=== PATIENT | female | born 1945 | race Caucasian/White ===

== ENCOUNTER 2024-03-16 09:42 | Inpatient (IN) | payer MEDICARE, OTHER, SELFPAY ==
[2024-03-16] VITALS (64 sets, daily range): BP systolic 85–174; BP diastolic 26–110; PULSE 65–115; RESP 15–36; TEMP 36.4–37.7; O2SAT 98–100; BMI 36.6
--- NOTE | ~2024-03-16 | XR_ITS ---
EXAMINATION: XR chest ET placement DATE: 03/16/2024 10:16 INDICATION: Intubation. TECHNIQUE: A single frontal view of the chest was obtained. COMPARISON: None. FINDINGS: There are airspace opacities in left mid and lower lung zones. There is blunting of left la teral costophrenic angle. No pneumothorax. The heart size is normal. There is a large hiatal hernia. The endotracheal tube tip is in the right mainstem bronchus. IMPRESSION: 1. Endotracheal tube tip in the right mainstem bronchus. I called this result to Dr. Painting. 2. Airspace opacities in left mid and lower lung zones, consistent with atelectasis versus pneumonia. 3. Blunting of left lateral costophrenic angle, which may be a prominent fat pad or a small pleural e ffusion. 4. Large hiatal hernia. Reviewed, dictated and finalized at location A. IMPRESSION: 1. Endotracheal tube tip in the right mainstem bronchus. I called this result t o Dr. Painting. 2. Airspace opacities in left mid and lower lung zones, consistent with atelect asis versus pneumonia. 3. Blunting of left lateral costophrenic angle, which may be a prominent fat pa d or a small pleural effusion. 4. Large hiatal hernia.
--- NOTE | ~2024-03-16 | MR_ITS ---
EXAMINATION: MR brain/brain stem wo/w con DATE: 03/17/2024 13:33 INDICATION: Seizure. TECHNIQUE: Magnetic resonance imaging (MRI) of the brain and brainstem was performed without and with 20 mL MultiHance intravenous contrast. COMPARISON: Head CT 03/16/2024 FINDINGS: There is increased T2-weighted and T2-weighted signal intensity involving the anteromedial left temporal lobe with tissue swelling. There are scattered areas of nonspecific increased T2-weight ed signal intensity in the cerebral white matter, which is within normal limits for the patient's age . There is no acute ischemic infarct or intracranial hemorrhage. 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 The ventricles are normal in size. There are likely maloney ges of ocular lens replacement surgeries. The paranasal sinuses are clear. There are small bilateral mastoid effusions. IMPRESSION: 1. Swelling and signal abnormality involving anteromedial left temporal lobe suspicious for HSV encep halitis. 2. 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 Reviewed, dictated and finalized at location A. IMPRESSION: 1. Swelling and signal abnormality involving anteromedial left temporal lobe bello spicious for HSV encephalitis. 2. 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
--- NOTE | ~2024-03-16 | XR_ITS ---
EXAMINATION: XR lumbar puncture diagnostic DATE: 03/18/2024 12:31 INDICATION: HSV encephalitis. Seizure. TECHNIQUE: The procedure including the risks, benefits, and alternatives was discussed with the patie nt. Risks discussed included spinal headache, cerebrospinal fluid leak, bleeding, and infection. The patient understood the risks and agreed to proceed. A timeout was performed to verify the patient' s name, date of , and procedure to be performed. The skin overlying the L2-L3 level was prepped and draped in usual sterile fashion. Subcutaneous 1% lidocaine was used for local anesthesia. A 20 gauge spinal needle was advanced under fluoroscopic guidance. The needle was removed and the entry s ite was cleaned and dressed. There were no immediate complications. Fluoroscopy exposure time was 0. 1 minutes. The total number of images was 1. FINDINGS: Real-time fluoroscopy demonstrates the needle at the L2-L3 level. The opening pressure was 16 cm water (Normal range is variably defined as 6-20 cm water and up to 25 cm water in obese patient s. Pressure >25 cm water is one of the modified Dandy criteria for idiopathic intracranial hypertensi on). 14 mL of clear, colorless fluid was collected in 4 tubes. IMPRESSION: 1. Successful fluoro-guided lumbar puncture. Reviewed, dictated and finalized at location A.
--- NOTE | ~2024-03-16 | CT_ITS ---
EXAMINATION: CT brain wo con DATE: 03/16/2024 10:23 INDICATION: Seizure-like activity. TECHNIQUE: Computed tomography (CT) of the head was performed without intravenous contrast. The mA wa s adjusted according to patient size. Iterative reconstruction technique was employed. The dose-lengt h product was 605.33 mGy-cm. COMPARISON: None FINDINGS: There are scattered areas of low attenuation in the cerebral white matter, which is within normal limits for the patient's age. There is no intracranial hemorrhage, acute infarction, or abnorm al intracranial mass lesion. The ventricles are normal in size. There are likely changes of ocular le ns replacement surgeries. There is mild mucosal thickening in the ethmoid sinuses. There is a small l eft mastoid effusion. IMPRESSION: 1. Normal aging brain. Reviewed, dictated and finalized at location A. IMPRESSION: 1. Normal aging brain.
--- NOTE | ~2024-03-16 | XR_ITS ---
EXAMINATION: XR chest 1V portable DATE: 03/18/2024 09:48 INDICATION: Shortness of breath. TECHNIQUE: A single frontal view of the chest was obtained. COMPARISON: Chest single view 03/16/2024, chest CT 03/16/2024 FINDINGS: There is a large hiatal hernia. There is mild atelectasis in left lower lung zone. No pleur al effusion or pneumothorax. The heart size is normal. IMPRESSION: 1. Large hiatal hernia. 2. Mild atelectasis in left lower lung zone. Reviewed, dictated and finalized at location A.
--- NOTE | ~2024-03-16 | XR_ITS ---
EXAMINATION: XR chest 1V portable DATE: 03/19/2024 09:58 INDICATION: Weakness. TECHNIQUE: A single frontal view of the chest was obtained. COMPARISON: Chest single view 03/18/2024, chest CT 03/16/2024 FINDINGS: There is mild atelectasis in left lower lung zone. No pleural effusion or pneumothorax. The re is a large hiatal hernia. The heart size is normal. IMPRESSION: 1. Mild atelectasis in left lower lung zone. 2. Large hiatal hernia. Reviewed, dictated and finalized at location B.
--- NOTE | ~2024-03-16 | CT_ITS ---
CTA brain carotid Ordering provider: Gabriela Painting MD History: . c/f cva . Comparison: None. Technique: CT angiogram head and neck was performed following timed intravenous injection of contrast . Thin slice axial images and reformatted coronal images were obtained. Three dimensional reformatted images of the brain were also obtained using a [employer] workstation. Radiation reduction technique uti lized. The dose-length product was 2641.75 mGy-cm. 200 mL Omnipaque 350 was given IV. FINDINGS: HEAD: --ANTERIOR AND MIDDLE CEREBRAL ARTERIES AND BRANCHES: Normal caliber and contour. Absent left A1 segm ent. --INTERNAL CAROTID ARTERIES: Mild atheromatous disease but no significant stenosis. No occlusion. --BASILAR ARTERY AND BRANCHES: Normal caliber and contour. No atheromatous disease. --POSTERIOR CEREBRAL ARTERIES: Normal caliber and contour. The distal branches are not very clear. --POSTERIOR COMMUNICATING ARTERIES: Both are visualized and continues as posterior cerebral arteries. --ANEURYSM: Prominent area in the anterior part of the cavernous sinus which measures 1 x 0.6 cm. Pos sibility of aneurysm in the area cannot be excluded. Further evaluation advised. --BRAIN: Please refer to report of CT head performed the same day. --BONES AND SUPERFICIAL SOFT TISSUES: Please refer to report of CT head performed the same day. --PARANASAL SINUSES AND MASTOIDS: Please refer to report of CT head done the same day. NECK: --RIGHT CERVICAL CAROTID SYSTEM: Mild atheromatous disease of the carotid bulb and proximal internal carotid artery without significant stenosis. Percent stenosis per NASCET criteria is 0%. No carotid dissection. Otherwise, no significant atheromatous disease or stenosis of the cervical carotid system . --LEFT CERVICAL CAROTID SYSTEM: Mild atheromatous disease of the carotid bulb and proximal internal c arotid artery without significant stenosis. Percent stenosis per NASCET criteria is 0%. No carotid d issection. Otherwise, no significant atheromatous disease or stenosis of the cervical carotid system. --VERTEBRAL ARTERIES: Normal caliber and contour. --VISUALIZED AORTIC ARCH AND BRANCHING VESSELS: Mild atheromatous disease but no significant stenosis . --SOFT TISSUES: Normal. --CERVICAL SPINE: Age appropriate degenerative changes. Anterolisthesis seen at the level of C4-C5. IMPRESSION: 1. CTA head and neck. Percent stenosis per NASCET criteria is 0%. 2. Prominent area in the anterior left cavernous sinus which may be an aneurysm. Further evaluation advised. 3. Absent left A1 segment. 4. Posterior communicating arteries continue otherwise posterior cerebral arteries. 5. No definite evidence of occlusion or significant stenosis in the intracerebral arteries although the distal branches of the posterior cerebral arteries are not very clear. Reviewed, dictated and finalized at location A. IMPRESSION: 1. CTA head and neck. Percent stenosis per NASCET criteria is 0%. 2. Prominent area in the anterior left cavernous sinus which may be an aneurys m. Further evaluation advised. 3. Absent left A1 segment. 4. Posterior communicating arteries continue otherwise posterior cerebral jairo milan. 5. No definite evidence of occlusion or significant stenosis in the intracereb ral arteries although the distal branches of the posterior cerebral arteries ar e not very clear.
--- NOTE | ~2024-03-16 | CT_ITS ---
CTA chest PE protocol Ordering provider: Gabriela Painting MD History: 78 years Female with . elev dimer . Comparison: None. Technique: CT angiogram chest was performed following timed intravenous injection of contrast. Thin s lice axial images and reformatted coronal images were obtained. Three dimensional reformatted images of the chest were also obtained using a [employer] workstation. . Automated exposure control and iterati ve reconstruction technique were employed. The dose-length product was 2641.75 mGy-cm. 200 mL Omnipaq ue 350 was given IV. Findings: PULMONARY ARTERIES: No pulmonary embolus. VISUALIZED THORACIC INLET: Hypodensities in both lobes of the thyroid. Ultrasound evaluation advised. Endotracheal tube is seen with the tip in the trachea. Nasogastric tube is seen looping in the stoma ch. MEDIASTINUM: Aorta/coronary arteries: Mild atheromatous disease. Heart/other: The heart is slightly enlarged. Prominent main pulmonary artery measuring 3.1 cm which is suggestive of pulmonary hypertension. Lymph nodes: No mediastinal or hilar adenopathy. LUNGS: Left lower lobe pneumonia is noted. No pulmonary nodules or masses. No effusions. No pneumothorax. VISUALIZED UPPER ABDOMEN: Herniation of the stomach into the chest is noted. Right renal cyst. Promin ent left adrenal gland. Otherwise, the visualized upper abdomen is normal. MUSCULOSKELETAL: Soft tissues: The superficial soft tissues are normal. Bones: Age appropriate degenerative changes of the spine. Dextroscoliosis. IMPRESSION: 1. Left lower lobe pneumonia. 2. No pulmonary embolism. 3. Herniation of the stomach into the chest. 4. Prominent pulmonary artery which may indicate pulmonary hypertension. Reviewed, dictated and finalized at location A.
--- NOTE | 2024-03-16 09:43 | ECG_ITS ---
Test Date: 2024-03-16 10:03:49 Measurements Intervals [place] Rate: 100 P: 71 IA: 181 QRS: 2 QRSD: 82 T: 12 QT: 333 QTc: 429 Interpretive Statements SINUS TACHYCARDIA POSSIBLE LEFT ATRIAL ENLARGEMENT [-0.1mV P-WAVE IN V1/V2] No previous ECG available for comparison Electronically Signed On 03-16-2024 15:36:39 CDT by Isauro Levine M.D.
[2024-03-16] MEDS: NALOXONE HCL 0.4 MG/ML VIAL (09:48)
[2024-03-16] MEDS: PROPOFOL IV EMULSION 200 MG/20 ML VIAL 100 MG IV PUSH ×2 (09:55→10:07)
[2024-03-16] MEDS: ROCURONIUM BROMIDE 50 MG/5 ML VIAL 70 MG IV PUSH ×2 (09:57→10:08)
--- NOTE | 2024-03-16 10:08 | ED_ITS ---
HPI - Seizure General Chief Complaint: Seizure Stated Complaint: code stroke Time Seen by Provider: 03/16/24 10:07 Source: family ( and neighbor) and EMS Mode of arrival: EMS Limitations: altered mental status and clinical condition History of Present Illness HPI Narrative: Patient presents as a CODE STROKE per EMS. LKW 21:00 yesterday. She was found reportedly unconscious on the couch at her home by this morning at 8:45. EMS noted dysconjugate gaze and witnessed her have a seizure that lasted ap proximately 45 seconds. No history of prior seizures. Then, she had a second seizure that lasted approximately 1 min. 5mg Versed administered. EMS attempted to intubate x1 due to report of desaturation to 88-92% and for airway protection but were unsuccessful. They state that had reported no prior stroke officially though possibly. She was reported to have BP 168/82 and blood glucose 146. Their initial plan per FAST score was to present to tertiary care facility but the seizure prompted them to present to closest facility. Per nurse, patient's reported that she is on blood thinner the note appears on her medication list. Related Data Home Medications Medication Instructions Recorded Confirmed allopurinol 100 mg tablet 100 mg PO DAILY 03/16/24 03/16/24 atenolol 25 mg tablet 25 mg PO DAILY 03/16/24 03/16/24 pfbeawy-yfkmkiumz-rdpf tablet 1 tablet PO DAILY 03/16/24 03/16/24 celecoxib 200 mg capsule (Celebrex) 200 mg PO DAILY 03/16/24 03/16/24 coQ10 (ubiquinol) 200 mg capsule 200 mg PO DAILY 03/16/24 03/16/24 empagliflozin 10 mg tablet 10 mg PO DAILY 03/16/24 03/16/24 (Jardiance) lisinopril 40 mg tablet 40 mg PO DAILY 03/16/24 03/16/24 methotrexate sodium 2.5 mg tablet 2.5 mg PO DAILY 03/16/24 03/16/24 mv-min-iron 4.5 mg-folic ac 120 1 tablet PO DAILY 03/16/24 03/16/24 mcg-vit K1 60 mcg-herbal no.352 tablet (Alive Women's Multivitamin) triamterene 75 1 tablet PO DAILY 03/16/24 03/16/24 mg-hydrochlorothiazide 50 mg tablet Allergies Allergy/AdvReac Type Severity Reaction Status Date / Time No Known Allergies Allergy Verified 03/16/24 09:53 [facility] Past Medical History Medical History Arthritis Family History Family History (Updated 03/16/24 @ 21:48 by Abner Shirley RN) Mother Dementia Father Bone cancer Sibling Myocardial infarct Social History Social History (Updated 03/16/24 @ 23:43 by Gabriela Painting MD) Social History: Has a son who lives in [place] Smoking packs per day: 0.5 Smoking cigarettes per day: 10.0 Years smoked: 10 Smoking pack-years: 5.00 Smoking status: Former smoker Tobacco type: cigarettes Alcohol intake: never Substance use: never Do You Feel Safe in your Home?: Yes Lack of Transportation: YES Lack of Food: Never True Current Housing: I Have Housing Concerned About Future Housing: No Difficulty Paying Gas/Electric Bills: No Difficulty Paying for Meds: No Currently Unemployed: No Education: High School Diploma/GED Difficulty w/ Childcare or Family Care: No Living arrangements: with family Additional living arrangements comments: , 61 years Spiritual care concerns: No Exam Narrative: GENERAL: well-nourished. HEAD: Normocephalic, atraumatic. EYES: Non injected, non icteric. pupils pinpoint bilaterally. ENT: Nares clear, no rhinorrhea or epistaxis. NECK: Supple. CHEST: Agonal breaths , being assisted by BVM HEART: Tachycardic rate and rhythm. . ABDOMEN: Soft, nondistended. No TTP to palpation. No rigidity or firmness. No guarding. EXTREMITIES: No lower extremity edema. SKIN: Warm, dry, no rash. NEURO: Not localizing to pain or verbal stimlui. Not alert, not oriented. No abnormal movements appreciated Course Vital Signs Vital signs: Vital Signs Temperature 98.3 F 03/16/24 09:45 Respiratory Rate 16 03/16/24 09:45 Pulse Oximetry 100 03/16/24 09:45 Oxygen Delivery Bag Valve Mask 03/16/24 09:45 Temperature 99 F 03/16/24 21:41 Pulse Rate 66 03/16/24 22:00 Respiratory Rate 20 03/16/24 21:41 Blood Pressure 122/49 L 10/25/24 21:41 Pulse Oximetry 100 03/16/24 21:41 Oxygen Delivery Mechanical Ventilation 03/16/24 16:41 Fraction of Inspired Oxygen 70 03/16/24 16:41 Procedures Intubation Intubation #1: Intubation Date: 03/16/24 Time out performed: Yes sedative: other (propofol) paralytic: Rocuronium Laryngoscope: Cristina Method of Intubation: orotracheal Tube Placement Confirmation: visualized tube passing through cords, equal breath sounds bilaterally and confirmation by capnometry Patient Tolerated Procedure: other Additional Comments: Did not achieve appropriate sedation/paralysis with initial medications administered when attempting to visualize oropharynx. Did not insert ETT but rather paused to continue to assist ventilations via BVM and pull up more of same medications. Patient did not desaturate during this. MDM - Seizure MDM Narrative Medical decision making narrative: Patient presents with concern for a stroke although NOT CODE STROKE protocol given LKW 21:00 last night. Reportedly found unresponsive/minimally responsive at 08:45. WItnessed to have 2 seizures by EMS without return to baseline. Received 5mg Versed by EMS who also attempted to intubate for airway protection and hypoxia (88-92%) but unsuccessul. POC glucose in the 140s. In the ED she is afebrile with VS notable for agonal breaths and tachycardia. Narcan administered with no change in status. Patient is requiring assistance with ventilation by BVM. Patient intubated for airway protection and to facilitate further studies. This was performed as above and, prior to performing this, RN did go to waiting room and discuss with patient's who reportedly said to do everything. ETT 24cm at the lip initially. Receive notification from Radiology that the ET tube was in the right main bronchus and he recommended withdrawal of 4 cm. I do believe patient was malpositioned during the initial study and at bedside her ETT is deeper than initial so advised nursing to withdraw only 2 cm. Possible PNA on exam. Also hiatal hernia. Protonix ordered for this especially since intubated. Although symptoms seem to reflect a stroke, concern for meningitis prompts broad spectrum antibiotic administration to cover this as well. Non contrast head CT without acute findings. Hyperglycemia with anion gap but no sparkle acidosis. I am informed that patient's is expressing that she would not want to be intubated and is requesting extubation. Discussed with and neighbor at bedside to obtain collateral information. They note a history of arthritis. She has been complaining of shortness of breath recently and has been having memory loss for the past month. This morning, when he found her on the couch, she was having significant word finding difficulty. He states it seemed like she knew what she wanted to say but couldn't say it which sounds like expressive aphasia. She was also repeating 'sorry.' For the memory loss, she was to undergo an MRI at [facility] scheduled for 04/07. Neighbor states that patient's son had mentioned that when he talked to his mother recently via phone she seemed to be having slurred speech. After extensive shared decision making, discussed that patient is already intubated due to initial communication. does believe it is reasonable to continue a work up at this time to see if this state is transient and/or if there are reversible causes. Patient discussed with sandwich peddler Dr Castellanos who expresses that patient unable to obtain MRI given ventilated as equipment not compatible. Has previously received care through [facility]. He does note that if there are issues or delay s, patient may require placement in [facility] ICU temporarily to manage care. Discussed with [facility] transfer center. Upon their return phone call, they state Neurology systems security consultant at [facility] states patient would likely require continuous EEG but this is unavailable over the weakened per customer supply coordinator. She then attempted [facility] but they won't do neuro ICU waitlist. Will trial medical ICU waitlist for consideration of bed with neuro consulted and obtaining MRI and continuous EEG. Transfer center calls back and states Accepting Doctor Kimberly for [facility] at medicine ICU though I did not speak with them directly (as per customer supply coordinator). They do note that there is potentially a marked delay in terms of bed availability. Dimer is elevated. CT PE study ordered as is CVA brain/carotid. Given patient's status, hospitalist PORTRAIT ARTIST paged to discuss admission/temporary placement while await bed at [facility]. She notes that, in discussion with Dr Castellanos, they had felt that transfer from ED to ED was indicated and that, if admitted to [facility], patient would lose her place on waitlist at [facility]. I do not believe ED to ED transfer is standard of care/protocol. Confirmed with discussion of charge nurse (via supervisor char house and director communication) that ED to ED transfer is not appropriate at this time. They clarified that admitting to the ICU as observation status is not an EMTALA violation and would not change patient's status on the waitlist. Discussed patient again with PORTRAIT ARTIST Tanja who states that she and Dr Castellanos are refusing admission of the patient, her as the hospitalist and him as the financial services consultant. Upon return from CT, I am notified by RT and RN that patient has been communicative on the vent, alert and following commands. This suggests that patient's initial altered mental status might have represented stroke versus postictal state versus medication (Versed) side effect. Sedation was turned off and patient was able to intermittently follow commands. RR 18 and Tidal volume 605 making RSBI 30 breaths/min/L which predicted likely successful extubation by RSBI. I again confirmed with patient (though limited ability to fully express desires) and at bedside that if she desaturated / decompensated post extubation, we would nOT be re-intubating given that would be against patient's wishes/goals. Extubation was performed successfully at bedside by RT. Patient Did briefly desaturate to between 88 and 92% on room air so she was placed on nasal cannula with improvement and maintaining saturations of 99-100% consistently. NIH stroke scale after extubation = 8 (+1 dysarthria, +2 aphasia/fragmentary expression, +2 some effort against gravity L upper extremity, +1 partial gaze palsy can be overcome; +2 no questions correct). Given patient no longer on the vent, this no longer appears to be a barrier/contraindication to admission. Discussed patient with Dr Thomas. Marisela ruiz ordered. Patient to be admitted to IMU for continuation of stroke work up. DNR status noted. Given patient no longer on the vent, notified [facility] transfer center That she would no longer require the ICU bed there to cancel place on waitlist. Critical Care: 1 or more vital organ systems impaired with a high probability of imminent or life-threatening deterioration in the patient's condition requiring frequent personal assessment and manipulation of the patient's condition. This included time spent evaluating the patient, speaking with EMS pre-hospital personnel and family, reviewing/interpreting laboratory/imaging goldie dies, discussing the case with consultants or admitting teams, retrieving data and reviewing charts, monitoring for decompensation, documenting the visit, and performing bundled procedures exclusive of separately billed procedures. Differential Diagnosis Differential diagnosis: Likely new onset seizure, status epilepticus and other ( subarachnoid hemorrhage, CVA, electrolyte abnormalites (Na), toxicologic, meningitis) Lab Data Attestation: I reviewed the patient's lab results. Lab results narrative: No leukocytosis. Normal renal function. No marked electrolyte abnormalities though hyperglycemic 03/16/24 11:03 03/16/24 11:02 Labs: Lab Results 03/16/24 03/16/24 03/16/24 Range/Units 10:41 11:02 11:02 WBC (4.5-10.0) K/mm3 RBC (4.2-5.4) M/mm3 Hgb (12.0-15.0) g/dL Hct (37.0-47.0) % MCV (80-100) fl MCH (26-34) pg MCHC (32-36) g/dl RDW (11.5-14.5) % Plt Count (150-375) k/mm3 MPV (7.4-10.4) fl Immature Gran % (Auto) (0-0.5) % Neut % (Auto) (45.5-73.1) % Lymph % (Auto) (18.3-44.2) % Lyman % (Auto) (2.6-8.5) % Eos % (Auto) (0-4.4) % Baso % (Auto) (0.2-1.2) % Lymph # (Auto) (0.9-3.2) K/mm3 Lyman # (Auto) (0.1-0.6) K/mm3 Eos # (Auto) (0-0.3) K/mm3 Baso # (Auto) (0.0-0.1) K/mm3 Abs Immat Gran (auto) (0.00-0.031) K/mm3 Absolute Neuts (auto) (1.3-6.7) K/mm3 Absolute Nucleated RBC (0.0-0.012) K/mm3 Nucleated RBC % (0.0-0.2) % PT 13.6 (11.1-14.7) Seconds INR 1.0 APTT 45.4 H (22.3-36.8) Seconds D-Dimer 3.21 H (<0.48) ug/mL Methemoglobin 0.3 (0-1.5) %THb Minute Volume Not Reportable Vent Mode Cmv Tidal Volume 400 ml PEEP 5 cmH2O Peak Inspir Pressure Not Reportable Pressure Support Not Reportable Sodium 140 (137-145) mmol/L Potassium 4.4 (3.4-5.0) mmol/L Chloride 106 (98-107) mmol/L Carbon Dioxide 21 L (22-30) mmol/L Anion Gap 13 H (4-12) mmol/L BUN 29 H (7-17) mg/dL Creatinine 1.00 (0.7-1.0) mg/dL Estim Creat Clear Calc Not Reportable Estimated GFR 53 L (59 - ) Glucose 158 H (65-110) mg/dL Hemoglobin A1c 5.6 (<5.7) % Lactic Acid (0.7-2.0) mmol/L Calcium 9.0 (8.4-10.2) mg/dL Magnesium 2.2 2.2 (1.6-2.3) mg/dL Total Bilirubin 0.7 (0.2-1.3) mg/dL AST 35 (14-36) U/L ALT 16 (6-35) U/L Alkaline Phosphatase 78 (38-126) U/L Total Creatine Kinase (30-135) U/L Troponin I 0.361 H* (0.000-0.034) ng/mL Total Protein 7.0 (6.3-8.2) g/dL Albumin 3.9 (3.5-5.1) g/dL Triglycerides 120 (<150) mg/dL Cholesterol 181 (0-200) mg/dL LDL Cholesterol Direct 87 mg/dL HDL Direct 50 mg/dL TSH 0.910 (0.465-4.680) uIU/mL Urine Color (Yellow) Urine Appearance (Clear) Urine pH (5.0-9.0) Ur Specific [place] (1.001-1.035) Urine Protein (Negative) mg/dL Urine Glucose (UA) (Negative) mg/dL Urine Ketones (Negative) mg/dL Ur Blood (Man) (Negative) Urine Nitrate (Negative) Urine Bilirubin (Negative) Urine Urobilinogen (<2.0) mg/dL Leukocyte Esterase Rfl (Negative) LISBETH/UL Urine RBC (0-2) /hpf Urine WBC (0-3) /hpf Ur Squamous Epith Cells (Few) /hpf Ur Transition Epith Cell (None Seen) /hpf Urine Bacteria /hpf Urine Casts Hyaline Casts (None) /lpf Nasal MRSA (PCR) (NOT DETECTE) Salicylates < 1.0 L (2-20) mg/dL Urine Opiates Screen (Negative) Urine Methadone Screen (Negative) Acetaminophen < 10 L (10-30) ug/mL Ur Barbiturates Screen (Negative) Ur Phencyclidine Scrn (Negative) Ur Amphetamine Screen (Negative) U Benzodiazepines Scrn (Negative) Urine Cocaine Screen (Negative) U Cannabinoids Screen (Negative) Ethyl Alcohol < 10 (<10) mg/dL 03/16/24 03/16/24 03/16/24 Range/Units 11:03 11:34 14:49 WBC 9.6 (4.5-10.0) K/mm3 RBC 3.92 L (4.2-5.4) M/mm3 Hgb 12.8 (12.0-15.0) g/dL Hct 38.6 (37.0-47.0) % MCV 98.5 (80-100) fl MCH 32.7 (26-34) pg MCHC 33.2 (32-36) g/dl RDW 14.4 (11.5-14.5) % Plt Count 229 (150-375) k/mm3 MPV 10.1 (7.4-10.4) fl Immature Gran % (Auto) 0.4 (0-0.5) % Neut % (Auto) 88.2 H (45.5-73.1) % Lymph % (Auto) 6.0 L (18.3-44.2) % Lyman % (Auto) 5.1 (2.6-8.5) % Eos % (Auto) 0.0 (0-4.4) % Baso % (Auto) 0.3 (0.2-1.2) % Lymph # (Auto) 0.57 L (0.9-3.2) K/mm3 Lyman # (Auto) 0.5 (0.1-0.6) K/mm3 Eos # (Auto) 0.0 (0-0.3) K/mm3 Baso # (Auto) 0.0 (0.0-0.1) K/mm3 Abs Immat Gran (auto) 0.04 H (0.00-0.031) K/mm3 Absolute Neuts (auto) 8.4 H (1.3-6.7) K/mm3 Absolute Nucleated RBC 0.000 (0.0-0.012) K/mm3 Nucleated RBC % 0.0 (0.0-0.2) % PT (11.1-14.7) Seconds INR APTT (22.3-36.8) Seconds D-Dimer (<0.48) ug/mL Methemoglobin (0-1.5) %THb Minute Volume Vent Mode Tidal Volume ml PEEP cmH2O Peak Inspir Pressure Pressure Support Sodium (137-145) mmol/L Potassium (3.4-5.0) mmol/L Chloride (98-107) mmol/L Carbon Dioxide (22-30) mmol/L Anion Gap (4-12) mmol/L BUN (7-17) mg/dL Creatinine (0.7-1.0) mg/dL Estim Creat Clear Calc Estimated GFR (59 - ) Glucose (65-110) mg/dL Hemoglobin A1c (<5.7) % Lactic Acid 1.5 (0.7-2.0) mmol/L Calcium (8.4-10.2) mg/dL Magnesium (1.6-2.3) mg/dL Total Bilirubin (0.2-1.3) mg/dL AST (14-36) U/L ALT (6-35) U/L Alkaline Phosphatase (38-126) U/L Total Creatine Kinase 52 (30-135) U/L Troponin I (0.000-0.034) ng/mL Total Protein (6.3-8.2) g/dL Albumin (3.5-5.1) g/dL Triglycerides (<150) mg/dL Cholesterol (0-200) mg/dL LDL Cholesterol Direct mg/dL HDL Direct mg/dL TSH (0.465-4.680) uIU/mL Urine Color Yellow (Yellow) Urine Appearance Clear (Clear) Urine pH 5.0 (5.0-9.0) Ur Specific [place] 1.022 (1.001-1.035) Urine Protein 1+ H (Negative) mg/dL Urine Glucose (UA) 3+ H (Negative) mg/dL Urine Ketones Trace H (Negative) mg/dL Ur Blood (Man) Negative (Negative) Urine Nitrate Negative (Negative) Urine Bilirubin Negative (Negative) Urine Urobilinogen 0.2 (<2.0) mg/dL Leukocyte Esterase Rfl Negative (Negative) LISBETH/UL Urine RBC 0-2 (0-2) /hpf Urine WBC 0-5 (0-3) /hpf Ur Squamous Epith Cells None seen (Few) /hpf Ur Transition Epith Cell Rare (None Seen) /hpf Urine Bacteria None seen /hpf Urine Casts 11-20 Hyaline Casts Present (None) /lpf Nasal MRSA (PCR) (NOT DETECTE) Salicylates (2-20) mg/dL Urine Opiates Screen Negative (Negative) Urine Methadone Screen Negative (Negative) Acetaminophen (10-30) ug/mL Ur Barbiturates Screen Negative (Negative) Ur Phencyclidine Scrn Negative (Negative) Ur Amphetamine Screen Negative (Negative) U Benzodiazepines Scrn Positive A (Negative) Urine Cocaine Screen Negative (Negative) U Cannabinoids Screen Negative (Negative) Ethyl Alcohol (<10) mg/dL 03/16/24 Range/Units 16:57 WBC (4.5-10.0) K/mm3 RBC (4.2-5.4) M/mm3 Hgb (12.0-15.0) g/dL Hct (37.0-47.0) % MCV (80-100) fl MCH (26-34) pg MCHC (32-36) g/dl RDW (11.5-14.5) % Plt Count (150-375) k/mm3 MPV (7.4-10.4) fl Immature Gran % (Auto) (0-0.5) % Neut % (Auto) (45.5-73.1) % Lymph % (Auto) (18.3-44.2) % Lyman % (Auto) (2.6-8.5) % Eos % (Auto) (0-4.4) % Baso % (Auto) (0.2-1.2) % Lymph # (Auto) (0.9-3.2) K/mm3 Lyman # (Auto) (0.1-0.6) K/mm3 Eos # (Auto) (0-0.3) K/mm3 Baso # (Auto) (0.0-0.1) K/mm3 Abs Immat Gran (auto) (0.00-0.031) K/mm3 Absolute Neuts (auto) (1.3-6.7) K/mm3 Absolute Nucleated RBC (0.0-0.012) K/mm3 Nucleated RBC % (0.0-0.2) % PT (11.1-14.7) Seconds INR APTT (22.3-36.8) Seconds D-Dimer (<0.48) ug/mL Methemoglobin (0-1.5) %THb Minute Volume Vent Mode Tidal Volume ml PEEP cmH2O Peak Inspir Pressure Pressure Support Sodium (137-145) mmol/L Potassium (3.4-5.0) mmol/L Chloride (98-107) mmol/L Carbon Dioxide (22-30) mmol/L Anion Gap (4-12) mmol/L BUN (7-17) mg/dL Creatinine (0.7-1.0) mg/dL Estim Creat Clear Calc Estimated GFR (59 - ) Glucose (65-110) mg/dL Hemoglobin A1c (<5.7) % Lactic Acid (0.7-2.0) mmol/L Calcium (8.4-10.2) mg/dL Magnesium (1.6-2.3) mg/dL Total Bilirubin (0.2-1.3) mg/dL AST (14-36) U/L ALT (6-35) U/L Alkaline Phosphatase (38-126) U/L Total Creatine Kinase (30-135) U/L Troponin I (0.000-0.034) ng/mL Total Protein (6.3-8.2) g/dL Albumin (3.5-5.1) g/dL Triglycerides (<150) mg/dL Cholesterol (0-200) mg/dL LDL Cholesterol Direct mg/dL HDL Direct mg/dL TSH (0.465-4.680) uIU/mL Urine Color (Yellow) Urine Appearance (Clear) Urine pH (5.0-9.0) Ur Specific [place] (1.001-1.035) Urine Protein (Negative) mg/dL Urine Glucose (UA) (Negative) mg/dL Urine Ketones (Negative) mg/dL Ur Blood (Man) (Negative) Urine Nitrate (Negative) Urine Bilirubin (Negative) Urine Urobilinogen (<2.0) mg/dL Leukocyte Esterase Rfl (Negative) LISBETH/UL Urine RBC (0-2) /hpf Urine WBC (0-3) /hpf Ur Squamous Epith Cells (Few) /hpf Ur Transition Epith Cell (None Seen) /hpf Urine Bacteria /hpf Urine Casts Hyaline Casts (None) /lpf Nasal MRSA (PCR) Not detected (NOT DETECTE) Salicylates (2-20) mg/dL Urine Opiates Screen (Negative) Urine Methadone Screen (Negative) Acetaminophen (10-30) ug/mL Ur Barbiturates Screen (Negative) Ur Phencyclidine Scrn (Negative) Ur Amphetamine Screen (Negative) U Benzodiazepines Scrn (Negative) Urine Cocaine Screen (Negative) U Cannabinoids Screen (Negative) Ethyl Alcohol (<10) mg/dL ABG Data ABG results: 03/16/24 10:41 Puncture Site Left radial ABG pH 7.332 L ABG pCO2 35.8 ABG pO2 245.6 H ABG PO2/FiO2 Ratio 2.46 ABG HCO3 18.5 L ABG O2 Saturation 99.5 ABG O2 Content 19.0 ABG Base Excess -6.6 A-a Gradient 431.6 Oxyhemoglobin 98.7 Carboxyhemoglobin 0.4 Reduced Hemoglobin 0.6 Total Hemoglobin 13.3 O2 Delivery Device Ventilator O2 Liters/Min Not Reportable Vent Rate 16 FiO2 100 Attestation: I personally reviewed and interpreted this ABG as follows: Interpretation: Primary metabolic acidosis with secondary respiratory acidosis Imaging Data Radiologist's impression: Impressions Chest X-Ray 03/16/24 10:17 IMPRESSION: 1. Endotracheal tube tip in the right mainstem bronchus. I called this result to Dr. Painting. 2. Airspace opacities in left mid and lower lung zones, consistent with atelectasis versus pneumonia. 3. Blunting of left lateral costophrenic angle, which may be a prominent fat pad or a small pleural effusion. 4. Large hiatal hernia. Head CT 03/16/24 10:24 IMPRESSION: 1. Normal aging brain. Chest CTA 03/16/24 16:42 IMPRESSION: 1. Left lower lobe pneumonia. 2. No pulmonary embolism. 3. Herniation of the stomach into the chest. 4. Prominent pulmonary artery which may indicate pulmonary hypertension. Head/Neck CTA 03/16/24 17:01 IMPRESSION: 1. CTA head and neck. Percent stenosis per NASCET criteria is 0%. 2. Prominent area in the anterior left cavernous sinus which may be an aneurysm. Further evaluation advised. 3. Absent left A1 segment. 4. Posterior communicating arteries continue otherwise posterior cerebral arteries. 5. No definite evidence of occlusion or significant stenosis in the intracerebral arteries although the distal branches of the posterior cerebral arteries are not very clear. ECG Data EKG #1: Attestation: I personally reviewed and interpreted this ECG as follows: ECG completion date: 03/16/24 ECG completion time: 10:03 Interpretation: Sinus tachycardia rate of 100 beats per minute. IL interval 181. QRS 82. QT/ QTC 333/390. Good R-wave progression across the precordial leads. T-wave inversion isolated to lead 3 but otherwise upright in normal in contiguous inferior leads 2 and AVF and no other concerning T-wave inversions. Critical Care Time Critical Care Time Critical Care Time: Yes Total Critical Care Time: 75 Discharge Plan Discharge Clinical Impression: Seizure, Hyperglycemia, Non-ST elevation [place] (NSTEMI), Glucosuria, Pneumonia, Altered mental state, Successfully weaned from mechanically assisted ventilation Patient Disposition: Still a Patient Condition: Serious
[2024-03-16 10:48] LABS: Alveolar/Arterial O2 Gradient 431.6 mmHg; Base Excess ABG -6.6 mEq/l (+/-2.0); Carboxyhemoglobin 0.4 % THb (0-2.0); Fractional Inspired Oxygen 100 %; HCO3 ABG 18.5 mEq/l (22.0-26.0); Methemoglobin ABG 0.3 %THb (0-1.5); Oxygen Saturation ABG 99.5 % (95.0-100.0); Oxyhemoglobin 98.7 % THb (90.0-100.0); PCO2 ABG 35.8 mmHg (35.0-45.0); PO2 ABG 245.6 mmHg (80.0-100.0); PO2 FiO2 Ratio Arterial Blood 2.46 %; Reduced Hemoglobin 0.6 %THb (0-5.0); Total Hemoglobin 13.3 g/dL (12.0-18.0); pH ABG 7.332 (7.350-7.450)
[2024-03-16 10:49] LABS: Device VENTILATOR; Modified Allen's Test Pass; Site Drawn LEFT RADIAL
[2024-03-16 10:50] LABS: Arterial Blood Gas PEEP 5 cmH2O; Arterial Blood Gas Tidal Volume 400 ml; Arterial Blood Gas Vent Mode CMV; Arterial Blood Gas Ventilator rate 16 /MIN
[2024-03-16 11:14] LABS: Basophils Percent Auto 0.3 % (0.2-1.2); Hematocrit 38.6 % (37.0-47.0); Hemoglobin 12.8 g/dL (12.0-15.0); Immature Granulocyte Absolute 0.04 K/mm3 (0.00-0.031); Immature Granulocyte Percent A 0.4 % (0-0.5); Lymphocytes Absolute Auto 0.57 K/mm3 (0.9-3.2); Mean Corpuscular HGB Conc 33.2 g/dl (32-36); Mean Corpuscular Hemoglobin 32.7 pg (26-34); Mean Corpuscular Volume 98.5 fl (80-100); Mean Platelet Volume 10.1 fl (7.4-10.4); Monocytes Absolute Auto 0.5 K/mm3 (0.1-0.6); Monocytes Percent Auto 5.1 % (2.6-8.5); Neutrophils Absolute Auto 8.4 K/mm3 (1.3-6.7); Neutrophils Percent Auto 88.2 % (45.5-73.1); Platelet Count Result 229 k/mm3 (150-375); Red Blood Count 3.92 M/mm3 (4.2-5.4); Red Cell Distribution Width 14.4 % (11.5-14.5); White Blood Count 9.6 K/mm3 (4.5-10.0)
[2024-03-16 11:23] LABS: Acetaminophen < 10 ug/mL (10-30); Ethanol < 10 mg/dL (<10); Salicylate < 1.0 mg/dL (2-20)
[2024-03-16 11:26] LABS: Prothrombin Time 13.6 Seconds (11.1-14.7)
[2024-03-16 11:27] LABS: Partial Thromboplastin Time 45.4 Seconds (22.3-36.8)
--- NOTE | 2024-03-16 11:30 | PC.NURSE ---
and daughter in room and report pt's wishes are DNR/DNI and want ETT removed. ERP notified
[2024-03-16 11:31] LABS: Alanine Aminotransferase 16 U/L (6-35); Albumin Level 3.9 g/dL (3.5-5.1); Alkaline Phosphatase 78 U/L (38-126); Anion Gap 13 mmol/L (4-12); Aspartate Amino Transferase 35 U/L (14-36); Bilirubin,Total 0.7 mg/dL (0.2-1.3); Blood Urea Nitrogen 29 mg/dL (7-17); Carbon Dioxide 21 mmol/L (22-30); Chloride 106 mmol/L (98-107); Estimated Glomerular Filt Rate 53; Glucose 158 mg/dL (65-110); Potassium 4.4 mmol/L (3.4-5.0); Sodium 140 mmol/L (137-145)
[2024-03-16 11:31] LABS: Creatine Kinase 52 U/L (30-135)
[2024-03-16 11:44] LABS: Troponin I 0.361 ng/mL (0.000-0.034)
[2024-03-16 11:57] LABS: Add Urine Microscopic? YES; Appearance Urine Clear (Clear); Bacteria Urine None Seen /hpf; Bilirubin Urine Negative (Negative); Blood Urine Negative (Negative); Color Urine Yellow (Yellow); Glucose Urine UA 3+ mg/dL (Negative); Hyaline Casts Urine Present /lpf; Ketones Urine Trace mg/dL (Negative); Leukocyte Esterase Ur Negative LEU/UL (Negative); Nitrate Urine Negative (Negative); Protein Urine 1+ mg/dL (Negative); RBC Urine 0-2 /hpf (0-2); Specific Grav Ur 1.022 (1.001-1.035); Squamous Epithelial Cell Urine None Seen /hpf (Few); Urobilinogen Urine 0.2 mg/dL (<2.0); WBC Urine 0-5 /hpf (0-3)
[2024-03-16 11:58] LABS: Transitional Epi Cells Urine Rare /hpf (None Seen)
[2024-03-16 12:01] LABS: Magnesium 2.2 mg/dL (1.6-2.3)
[2024-03-16 12:02] LABS: Amphetamine Screen Urine Negative (Negative); Barbiturate Screen Urine Negative (Negative); Benzodiazepines Screen Urine Positive (Negative); Cannabinoid Screen Urine Negative (Negative); Cocaine Screen Urine Negative (Negative); Methadone Screen Urine Negative (Negative); Opiate Screen Urine Negative (Negative); Phencyclidine Screen Urine Negative (Negative)
[2024-03-16 12:26] LABS: D Dimer 3.21 ug/mL (<0.48)
[2024-03-16 12:28] LABS: Magnesium 2.2 mg/dL (1.6-2.3)
[2024-03-16] MEDS: MIDAZOLAM 100MG/NS 100ML(*CRX) 100 MG/100 ML BAG IV CONT (14:17)
[2024-03-16] MEDS: PANTOPRAZOLE SODIUM IV 40 MG VIAL IV PUSH (14:21)
[2024-03-16 15:17] LABS: Lactic Acid Reflex 1.5 mmol/L (0.7-2.0)
[2024-03-16] MEDS: AMPICILLIN 2 GM/NS 100 ML 2 GM/100 ML BAG IVPB (15:30)
[2024-03-16] MEDS: PANTOPRAZOLE SODIUM IV 40 MG VIAL (16:00)
--- NOTE | 2024-03-16 17:01 | PCRCNOTE ---
pt extubated at 1655
[2024-03-16] MEDS: cefTRIAXone 2 GM/NS 100 ML 2 GM/100 ML BAG IVPB (18:02)
[2024-03-16] MEDS: levETIRAcetam IV 4,500 MG in DEXTROSE 5% 100 ML 870 MG IVPB (18:03)
[2024-03-16] MEDS: VANCOMYCIN 1,250 MG/NS 250 ML 1,250 MG/250 ML BAG 166.67 MG IVPB ×2 (18:06→19:41)
[2024-03-16 18:16] LABS: MRSA (PCR) NOT DETECTED (NOT DETECTE)
--- NOTE | 2024-03-16 18:36 | PC.NURSE ---
At [address], RAC SLN infiltrated when contrast infused. SLN removed, warm compess appied to site. Then flushed left chest SLN and it infiltrated. Has 24g to right chest, and 24 applied to left wrist. Pt has versed infusing but remains awake, will follow commands and answer questions. Retuened to ED at 1635 and ERP notified of pt's responses and she then evaluated pt. Per pt and family request ETT removed along with OG at 1655. Pt awake maintaining SPO2 100% RA
--- NOTE | 2024-03-16 18:40 | PC.NURSE ---
0955 100mg propofol given 0957 Dima given Pt remains awake. 1007 propofol given 1008 Dima given ERP placed size 7 ETT tube and 24 at lip After CXR ETT pulled back 2 cm per ERP.
[2024-03-16] MEDS: ACETAMINOPHEN 650 MG SUPPOSITORY RECTAL (19:28)
--- NOTE | 2024-03-16 19:31 | P.HP_ITS ---
H&P: HPI History of Present Illness Date/Time: 03/16/24 19:31 Chief Complaint: AMS Narrative: This is an 78-year-old female with a significant past medical history of rheumatoid arthritis, gout, hypertension, vitamin-D deficiency who presented with altered mental status and reported seizure activity. Most of history of presenting illness was obtained from the and son as patient has been noncontributory. states that she was trying to talk to her earlier in the day but could not talk or get her words are find her words. According to the and son patient has been having issues with losing memory and words and originally presented to her primary care doctor who had concerns for stroke and was going to send her to [facility] for an MRI in a couple of weeks to evaluate for stroke. He states that after that happened she started having convulsions and tremors where they called EMS. EMS found her unresponsive and was transporting her to the emergency room when she had another seizure while in the EMS rig. Upon arrival to the hospital patient was not responsive with concerns for airway protection and then was intubated. She was started on propofol for sedative as this has anticonvulsant properties. A code stroke was initiated. Patient was sent for a CT of the head which was negative for any acute intracranial process, showed normal aging brain. Chest x-ray after intubation shown endotracheal tube tip in the right main stem bronchus, airspace opacities in left mid and lower lung zone, blunting of left lateral closer phrenic angle, large hiatal hernia. Chest CTA showed left lower lobe pneumonia, was negative for PE, herniation of the stomach into the chest, prominent pulmonary artery which may indicate pulmonary hypertension. Head and neck CTA showed prominent area in the anterior left cavernous sinus which may be an aneurysm, absent left A1 segment, no definite evidence of occlusion or significant stenosis in the intracerebral arteries although the distal branches of the posterior cerebral arteries are not very clear. Initial labs showed a normal white blood cell count of 9.6, bicarb 21, anion gap 13, EGFR 53, lactic acid was 1.5, troponin 0.361, TSH 0.910. A UA was obtained and showed 1+ urine protein, 3+ urine glucose, trace urine ketone, 11-20 urine cast. MRSA was obtained and was negative. Urine drug screen was positive for benzodiazepines. considering we did not have neurology coverage here at [place] today the ED physician called neurologist on-call at [facility] who states that the patient would likely need a continuous EEG and that would not be possible at their facility. The ED physician then called [facility] and did get an accepting physician Dr. Harris however there would be a delay in availability of a bed. Patient then reportedly woke up on the ventilator, was trying to communicate, and was following commands. Sedation was turned off and patient was extubated. The ED physician spoke with the and the patient and it was agreed to make her DNR/ DNI status as this was originally the patient's wishes before admission. NIH stroke scale after extubation was 8. considering the patient was no longer on the ventilator they then canceled to transfer to [place] for an ICU bed. Patient was then given a dose of aspirin and a loading dose of Keppra. She is being admitted to IMU status for further workup. Review of Systems Review of Systems: All systems reviewed & are unremarkable except as noted in HPI and below Constitutional: Constitutional: Reports as per HPI and Reports no additional constitutional complaints Eyes: Eyes: Reports as per HPI and Reports no additional eye complaints ENT: Reports system reviewed and no additional complaints, except as documen shine and Reports as per HPI Cardiovascular: Cardiovascular: Reports as per HPI and Reports no additional cardiovascular complaints Respiratory: Respiratory: Reports as per HPI and Reports no additional respiratory complaints Gastrointestinal: Gastrointestinal: Reports as per HPI and Reports no additional gastrointestinal complaints Genitourinary: Genitourinary: Reports no additional female genitourinary complaints and Reports as per HPI Musculoskeletal: Musculoskeletal: Reports no additional musculoskeletal complaints and Reports as per HPI Integumentary/Breasts: Skin/Breast: Reports system reviewed and no additional complaints, except as docu and Reports as per HPI Neurologic: Reports system reviewed and no additional complaints, except as documented and Reports as per HPI Psychiatric: Psychiatric: Reports no additional psychiatric complaints and Reports as per HPI [facility] Past Medical History Medical History Arthritis Former smoker Gout Hypertension Rheumatoid arthritis Vitamin D deficiency Surgical History Surgical History H/O foot surgery History of back surgery Family History Family History Mother Dementia Father Bone cancer Sibling Myocardial infarct Social History Social History Social History: Has a son who lives in [place] Smoking packs per day: 0.5 Smoking cigarettes per day: 10.0 Years smoked: 10 Smoking pack-years: 5.00 Smoking status: Former smoker Tobacco type: cigarettes Alcohol intake: never Substance use: never Do You Feel Safe in your Home?: Yes Lack of Transportation: YES Lack of Food: Never True Current Housing: I Have Housing Concerned About Future Housing: No Difficulty Paying Gas/Electric Bills: No Difficulty Paying for Meds: No Currently Unemployed: No Education: High School Diploma/GED Difficulty w/ Childcare or Family Care: No Living arrangements: with family Additional living arrangements comments: , 61 years Spiritual care concerns: No Meds Home Medications and Allergies Home Medications Medication Instructions Recorded Confirmed Type allopurinol 100 mg tablet 100 mg PO DAILY 03/16/24 03/16/24 History atenolol 25 mg tablet 25 mg PO DAILY 03/16/24 03/16/24 History iemgoyf-rmftecpmq-ywhw tablet 1 tablet PO DAILY 03/16/24 03/16/24 History celecoxib 200 mg capsule (Celebrex) 200 mg PO DAILY 03/16/24 03/16/24 History coQ10 (ubiquinol) 200 mg capsule 200 mg PO DAILY 03/16/24 03/16/24 History empagliflozin 10 mg tablet 10 mg PO DAILY 03/16/24 03/16/24 History (Jardiance) lisinopril 40 mg tablet 40 mg PO DAILY 03/16/24 03/16/24 History methotrexate sodium 2.5 mg tablet 2.5 mg PO DAILY 03/16/24 03/16/24 History mv-min-iron 4.5 mg-folic ac 120 1 tablet PO DAILY 03/16/24 03/16/24 History mcg-vit K1 60 mcg-herbal no.352 tablet (Alive Women's Multivitamin) triamterene 75 1 tablet PO DAILY 03/16/24 03/16/24 History mg-hydrochlorothiazide 50 mg tablet Allergies Allergy/AdvReac Type Severity Reaction Status Date / Time No Known Allergies Allergy Verified 03/16/24 09:53 Vital Signs Vital Signs - 24 hr 03/16/24 10:53 03/16/24 09:45 03/16/24 10:28 Temperature 98.3 F Pulse Rate 115 H 106 H Respiratory Rate 16 16 Blood Pressure 129/79 Pulse Oximetry 99 100 99 Oxygen Delivery Mechanical Ventilation Bag Valve Mask Fraction of Inspired Oxygen 70 03/16/24 10:31 03/16/24 10:46 03/16/24 11:01 Temperature Pulse Rate 104 H 115 H 114 H Respiratory Rate 18 18 16 Blood Pressure 139/56 L 170/74 H 174/71 H Pulse Oximetry 98 100 98 Oxygen Delivery Fraction of Inspired Oxygen 03/16/24 11:16 03/16/24 11:31 03/16/24 11:46 Temperature Pulse Rate 105 H 92 85 Respiratory Rate 16 16 16 Blood Pressure 152/60 H 140/55 L 142/56 H Pulse Oximetry 100 98 99 Oxygen Delivery Fraction of Inspired Oxygen 03/16/24 12:01 03/16/24 12:17 03/16/24 12:31 Temperature 97.9 F 97.6 F Pulse Rate 86 85 82 Respiratory Rate 16 16 16 Blood Pressure 136/56 L 135/56 L 146/56 H Pulse Oximetry 98 99 99 Oxygen Delivery Fraction of Inspired Oxygen 03/16/24 12:46 03/16/24 13:16 03/16/24 13:32 Temperature 97.7 F 97.9 F Pulse Rate 85 83 83 Respiratory Rate 16 16 16 Blood Pressure 145/63 H 146/57 H 144/67 H Pulse Oximetry 100 100 100 Oxygen Delivery Fraction of Inspired Oxygen 03/16/24 13:47 03/16/24 14:00 03/16/24 14:01 Temperature 97.8 F Pulse Rate 80 78 80 Respiratory Rate 16 20 21 H Blood Pressure 141/61 H 128/110 H Pulse Oximetry 100 100 100 Oxygen Delivery Fraction of Inspired Oxygen 03/16/24 14:17 03/16/24 14:47 03/16/24 15:26 Temperature Pulse Rate 76 74 74 Respiratory Rate 18 18 20 Blood Pressure Pulse Oximetry Oxygen Delivery Fraction of Inspired Oxygen 03/16/24 14:41 03/16/24 16:41 03/16/24 17:00 Temperature Pulse Rate 76 Respiratory Rate 20 Blood Pressure Pulse Oximetry 99 100 Oxygen Delivery Mechanical Ventilation Mechanical Ventilation Fraction of Inspired Oxygen 70 70 03/16/24 14:17 03/16/24 14:32 03/16/24 14:48 Temperature 97.9 F 97.8 F Pulse Rate 76 75 75 Respiratory Rate 18 18 18 Blood Pressure 106/78 104/50 L 108/48 L Pulse Oximetry 100 100 100 Oxygen Delivery Fraction of Inspired Oxygen 03/16/24 15:01 03/16/24 15:16 03/16/24 15:33 Temperature 97.6 F Pulse Rate 74 67 71 Respiratory Rate 19 16 15 Blood Pressure 109/41 L 101/35 L 107/26 L Pulse Oximetry 100 100 100 Oxygen Delivery Fraction of Inspired Oxygen 03/16/24 16:47 03/16/24 17:20 03/16/24 17:31 Temperature 97.8 F 97.8 F Pulse Rate 79 85 81 Respiratory Rate 18 18 19 Blood Pressure 128/63 127/84 122/63 Pulse Oximetry 100 99 99 Oxygen Delivery Fraction of Inspired Oxygen 03/16/24 17:46 03/16/24 18:11 03/16/24 18:30 Temperature 97.8 F 97.8 F Pulse Rate 77 71 68 Respiratory Rate 18 20 18 Blood Pressure 114/76 109/57 L 108/50 L Pulse Oximetry 100 100 100 Oxygen Delivery Fraction of Inspired Oxygen Exam Narrative: General: In no acute distress, somnolent, weak appearance Head: atraumatic Eyes: PERRLA, sclera clear ENT: moist mucous membranes, nasal passages clear Neck: supple, no JVD, no adenopathy, trachea midline Cardiac: Normal S1 and S2. No murmur, gallops or friction rubs, peripheral pulses intact. Respiratory: Lungs clear to auscultation, no adventitious lung sounds currently on 2 L nasal cannula Gastrointestinal: soft, non-distended, non-tender, normoactive bowel sounds. : Fleming catheter in place Extremities: moves all extremities well, no edema Skin: clean, dry, intact. No wounds or lesions. Neuro: Alert to voice, unable to assess orientation as she drifts back to sleep, unable to do a full neuro exam due to her somnolence Psych: Minimally interactive, unable to do a full psych history due to her somnolence H&P: Results Labs Labs: Short CBC 03/16/24 Range/Units 11:03 WBC 9.6 (4.5-10.0) K/mm3 Hgb 12.8 (12.0-15.0) g/dL Hct 38.6 (37.0-47.0) % Plt Count 229 (150-375) k/mm3 BMP 03/16/24 11:02 Sodium 140 Potassium 4.4 Chloride 106 Carbon Dioxide 21 L BUN 29 H Creatinine 1.00 Glucose 158 H Calcium 9.0 Cardiac Enzymes 03/16/24 03/16/24 Range/Units 11:02 11:03 Total Creatine Kinase 52 (30-135) U/L Troponin I 0.361 H* (0.000-0.034) ng/mL Liver Function 03/16/24 Range/Units 11:02 Total Bilirubin 0.7 (0.2-1.3) mg/dL AST 35 (14-36) U/L ALT 16 (6-35) U/L Alkaline Phosphatase 78 (38-126) U/L Albumin 3.9 (3.5-5.1) g/dL Urine 03/16/24 Range/Units 11:34 Urine Color Yellow (Yellow) Urine Appearance Clear (Clear) Urine pH 5.0 (5.0-9.0) Ur Specific [place] 1.022 (1.001-1.035) Urine Protein 1+ H (Negative) mg/dL Urine Glucose (UA) 3+ H (Negative) mg/dL Imaging Chest x-ray: Radiologist's impression: EXAMINATION: XR chest ET placement DATE: 03/16/2024 10:16 INDICATION: Intubation. TECHNIQUE: A single frontal view of the chest was obtained. COMPARISON: None. FINDINGS: There are airspace opacities in left mid and lower lung zones. There is blunting of left lateral costophrenic angle. No pneumothorax. The heart size is normal. There is a large hiatal hernia. The endotracheal tube tip is in the right mainstem bronchus. IMPRESSION: 1. Endotracheal tube tip in the right mainstem bronchus. I called this result to Dr. Painting. 2. Airspace opacities in left mid and lower lung zones, consistent with at electasis versus pneumonia. 3. Blunting of left lateral costophrenic angle, which may be a prominent fat pad or a small pleural effusion. 4. Large hiatal hernia. Reviewed, dictated and finalized at location A. CT scan - head: Radiologist's impression: EXAMINATION: CT brain wo con DATE: 03/16/2024 10:23 INDICATION: Seizure-like activity. TECHNIQUE: Computed tomography (CT) of the head was performed without intravenous contrast. The mA was adjusted according to patient size. Iterative reconstruction technique was employed. The dose-length product was 605.33 mGy- cm. COMPARISON: None FINDINGS: There are scattered areas of low attenuation in the cerebral white matter, which is within normal limits for the patient's age. There is no intracranial hemorrhage, acute infarction, or abnormal intracranial mass lesion. The ventricles are normal in size. There are likely changes of ocular lens replacement surgeries. There is mild mucosal thickening in the ethmoid sinuses. There is a small left mastoid effusion. IMPRESSION: 1. Normal aging brain. Reviewed, dictated and finalized at location A. CTA of chest: Radiologist's impression: CTA chest PE protocol Ordering provider: Gabriela Painting MD History: 78 years Female with . elev dimer . Comparison: None. Technique: CT angiogram chest was performed following timed intravenous injection of contrast. Thin slice axial images and reformatted coronal images were obtained. Three dimensional reformatted images of the chest were also obtained using a [employer] workstation. . Automated exposure control and iterative reconstruction technique were employed. The dose-length product was 2641.75 mGy- cm. 200 mL Omnipaque 350 was given IV. Findings: PULMONARY ARTERIES: No pulmonary embolus. VISUALIZED THORACIC INLET: Hypodensities in both lobes of the thyroid. Ultrasound evaluation advised. Endotracheal tube is seen with the tip in the trachea. Nasogastric tube is seen looping in the stomach. MEDIASTINUM: Aorta/coronary arteries: Mild atheromatous disease. Heart/other: The heart is slightly enlarged. Prominent main pulmonary artery measuring 3.1 cm which is suggestive of pulmonary hypertension. Lymph nodes: No mediastinal or hilar adenopathy. LUNGS: Left lower lobe pneumonia is noted. No pulmonary nodules or masses. No effusions. No pneumothorax. VISUALIZED UPPER ABDOMEN: Herniation of the stomach into the chest is noted. Right renal cyst. Prominent left adrenal gland. Otherwise, the visualized upper abdomen is normal. MUSCULOSKELETAL: Soft tissues: The superficial soft tissues are normal. Bones: Age appropriate degenerative changes of the spine. Dextroscoliosis. IMPRESSION: 1. Left lower lobe pneumonia. 2. No pulmonary embolism. 3. Herniation of the stomach into the chest. 4. Prominent pulmonary artery which may indicate pulmonary hypertension. Reviewed, dictated and finalized at location A. head/neck CTA: Radiologist's impression: CTA brain carotid Ordering provider: Gabriela Painting MD History: . c/f cva . Comparison: None. Technique: CT angiogram head and neck was performed following timed intravenous injection of contrast. Thin slice axial images and reformatted coronal images were obtained. Three dimensional reformatted images of the brain were also obtained using a [employer] workstation. Radiation reduction technique utilized. The dose-length product was 2641.75 mGy-cm. 200 mL Omnipaque 350 was given IV. FINDINGS: HEAD: --ANTERIOR AND MIDDLE CEREBRAL ARTERIES AND BRANCHES: Normal caliber and contour. Absent left A1 segment. --INTERNAL CAROTID ARTERIES: Mild atheromatous disease but no significant stenosis. No occlusion. --BASILAR ARTERY AND BRANCHES: Normal caliber and contour. No atheromatous disease. --POSTERIOR CEREBRAL ARTERIES: Normal caliber and contour. The distal branches are not very clear. --POSTERIOR COMMUNICATING ARTERIES: Both are visualized and continues as posterior cerebral arteries. --ANEURYSM: Prominent area in the anterior part of the cavernous sinus which me asures 1 x 0.6 cm. Possibility of aneurysm in the area cannot be excluded. Further evaluation advised. --BRAIN: Please refer to report of CT head performed the same day. --BONES AND SUPERFICIAL SOFT TISSUES: Please refer to report of CT head performed the same day. --PARANASAL SINUSES AND MASTOIDS: Please refer to report of CT head done the same day. NECK: --RIGHT CERVICAL CAROTID SYSTEM: Mild atheromatous disease of the carotid bulb and proximal internal carotid artery without significant stenosis. Percent stenosis per NASCET criteria is 0%. No carotid dissection. Otherwise, no signi ficant atheromatous disease or stenosis of the cervical carotid system. --LEFT CERVICAL CAROTID SYSTEM: Mild atheromatous disease of the carotid bulb and proximal internal carotid artery without significant stenosis. Percent stenosis per NASCET criteria is 0%. No carotid dissection. Otherwise, no significant atheromatous disease or stenosis of the cervical carotid system. --VERTEBRAL ARTERIES: Normal caliber and contour. --VISUALIZED AORTIC ARCH AND BRANCHING VESSELS: Mild atheromatous disease but no significant stenosis. --SOFT TISSUES: Normal. --CERVICAL SPINE: Age appropriate degenerative changes. Anterolisthesis seen at the level of C4-C5. IMPRESSION: 1. CTA head and neck. Percent stenosis per NASCET criteria is 0%. 2. Prominent area in the anterior left cavernous sinus which may be an aneurysm. Further evaluation advised. 3. Absent left A1 segment. 4. Posterior communicating arteries continue otherwise posterior cerebral arteries. 5. No definite evidence of occlusion or significant stenosis in the intracerebral arteries although the distal branches of the posterior cerebral arteries are not very clear. Reviewed, dictated and finalized at location A. Assessment and Plan Assessment and plan (1) Seizure: Code(s): R56.9 - Unspecified convulsions Status: Acute Assessment and Plan: -- reported seizure activity on arrival requiring intubation for airway protection, initially on propofol for sedation and anticonvulsant. patient woke up while in the ED and was extubated on 2 L nasal cannula as she was also following commands and communicating. * head CT was negative for any acute intracranial findings * head/neck CTA showed 0% stenosis in bilateral carotid bulbs, prominent area in the anterior left cavernous sinus which may be an aneurysm, absent left A1 segment, no definite evidence of occlusion or significant stenosis in the intracerebral arteries although the distal branches of the posterior cerebral arteries were not clear on this examination * urine drug screen was positive for benzodiazepines, ETOH less than 10 * MRI of the brain and brainstem with and without contrast ordered * will also obtain echocardiogram with bubble study * neurology consulted * PT/OT/ speech therapy ordered * NPO except for ice chips for possible swallow study * loading dose of Keppra was given while in the ED * continue Keppra and aspirin * Continue seizure precautions * continue neuro checks * Keep section near by at bedside (2) Pneumonia: Code(s): J18.9 - Pneumonia, unspecified organism Status: Acute Assessment and Plan: * CTA of the chest revealed left lower lobe pneumonia, herniation of the stomach into the chest, negative for PE, prominent pulmonary artery which may indicate pulmonary hypertension * chest x-ray showing airspace opacities in the left mid and lower lung zones consistent with pneumonia * patient was given Rocephin, vancomycin, and ampicillin while in the ED * MRSA was negative and vancomycin was discontinued * will change antibiotic to Rocephin and azithromycin * White blood cell count 9.6 * blood cultures were obtained and are pending (3) Non-ST elevation AR (NSTEMI): Code(s): I21.4 - Non-ST elevation (NSTEMI) myocardial infarction Status: Acute Assessment and Plan: * troponin 0.361 at 11:02 a.m. today * will repeat troponin now * cardiology consulted * EKG showing sinus tachycardia with a rate of 100 with a QTC of 429 (4) Elevated d-dimer: Code(s): R79.89 - Other specified abnormal findings of blood chemistry Status: Acute Assessment and Plan: * D-dimer 3.21 * CTA of the chest was negative for PE Quality VTE Prophylaxis VTE prophylaxis: pharmacologic ordered Hospitalist [facility] Advance Care Plan I have confirmed that the patient's Advanced Care Plan is present, code status is documented, or surrogate decision maker is listed in patient medical record.: Yes Medication Reconciliation I have utilized all available resources to obtain, update and review the patients current medications (includes all prescriptions, OTC, herbals, cannabis, and nutritional supplements).: Yes
--- NOTE | 2024-03-16 19:58 | PC.NURSE ---
pt awake but not following commands. Pt is rolling to her left side as per that is how she always sleeps.
[2024-03-16 21:11] LABS: Cholesterol 181 mg/dL (0-200); HDL Direct 50 mg/dL; Triglycerides 120 mg/dL (<150)
[2024-03-16 21:13] LABS: Hemoglobin A1C 5.6 % (<5.7)
[2024-03-16 21:22] LABS: LDL Cholesterol Direct 87 mg/dL
--- NOTE | 2024-03-16 21:36 | ADMGEN ---
This patient, Colette Espino, was admitted to IMU Room 214-01. Patient/family oriented to hospital policies and general routines including ID bracelet, bed and alarms, visiting hours, pain management, procedures, bathroom and other care routines, personal items, smoking policy, room service/diet, and visiting hours. Information on how to activate the Rapid Response Team has been discussed. Patient/Family are encouraged to report perceived risks to care and to ask questions if they do not understand what they are told or what they should do.
[2024-03-16 21:49] LABS: Glucose Point of Care 109 mg/dl (65-105)
[2024-03-16] MEDS: AZITHROMYCIN 500 MG/NS 250 ML 500 MG/250 ML BAG 250 MG IVPB (21:54)
[2024-03-16 23:03] LABS: Troponin I 0.527 ng/mL (0.000-0.034)
[2024-03-16 23:16] LABS: Thyroid Stimulating Hormone 0.471 uIU/mL (0.465-4.680)
[2024-03-17] VITALS (19 sets, daily range): BP systolic 101–116; BP diastolic 40–59; PULSE 67–97; RESP 12–24; TEMP 36.6–37.5; O2SAT 95–100
--- NOTE | 2024-03-17 | ECHO_ITS ---
Patient Info Name: Colette Espino Age: 78 years : 1945 Gender: Female Ht: 66 in Wt: 236 lbs BSA: 2.28 m2 HR: 68 bpm BP: 101 / 45 mmHg Heart Rhythm: Sinus Rhythm Technical Quality: Good Exam Date: 03/17/2024 9:16 AM Exam Location: Echo Lab Patient Status: Inpatient Admit Date: 03/17/2024 Staff Ordering Physician: Tanja Phillips APRN [employer] Internship: Shira Dolan RDCS Attending Provider: Primo Thomas MD Referring Physician: Jacqueline REEVES; Exam Type: CA echo doppler w bubble study Study Info Indications - seizure versus stroke Complete two-dimensional, color flow and Doppler transthoracic echocardiogram is performed with agitated saline. Summary 1. Left ventricular chamber dimension is normal. 2. Left ventricular systolic function is hyperdynamic, estimated at >70%. 3. There is mildly increased left ventricular wall thickness. 4. The left ventricular diastolic function is grade I diastolic dysfunction. 5. Left atrial chamber dimension is mildly enlarged. 6. Right atrial chamber dimension is mildly enlarged. 7. Intact interatrial septum visualized by agitated saline imaging. 8. There is mild mitral valve regurgitation. 9. There is mild tricuspid valve regurgitation. 10. Moderate pulmonary hypertension, estimated pulmonary arterial systolic pressure is 58 mmHg. Left Ventricle Left ventricular chamber dimension is normal. Left ventricular systolic function is hyperdynamic, estimated at >70%. There is mildly increased left ventricular wall thickness. The left ventricular diastolic function is grade I diastolic dysfunction. Right Ventricle Right ventricular chamber dimension is normal. Right ventricular systolic function is normal. Left Atria Left atrial chamber dimension is mildly enlarged. Right Atria Right atrial chamber dimension is mildly enlarged. Atrial Septum Intact interatrial septum visualized by agitated saline imaging. Aortic Valve The aortic valve is trileaflet. There is mild aortic valve sclerosis. There is no aortic valve stenosis. There is trace aortic valve regurgitation. Pulmonic Valve The pulmonic valve is normal. There is no pulmonic valve stenosis. There is trace pulmonic regurgitation. Mitral Valve The mitral valve has normal leaflets. There is no mitral valve stenosis. There is mild mitral valve regurgitation. Tricuspid Valve The tricuspid valve leaflets are normal. There is no significant tricuspid valve stenosis. There is mild tricuspid valve regurgitation. Moderate pulmonary hypertension, estimated pulmonary arterial systolic pressure is 58 mmHg. Pericardium/Pleural The pericardium appears normal. There is no pericardial effusion. Inferior Vena Cava Normal inferior vena cava with >50% collapse upon inspiration consistent with normal right atrial pressure, 10 mmHg. Aorta The aortic root size at the sinus of Valsalva is normal. Left Ventricular Outflow Tract Name Value Normal LVOT 2D LVOT Diameter 2.0 cm LVOT Doppler LVOT Peak Gradient 6 mmHg LVOT Mean Gradient 4 mmHg LVOT VTI 29 cm LVOT VTI/AV VTI Ratio 0.8 LVOT Stroke Volume 92 ml LVOT CO 6.9 l/min LVOT CI 3.0 l/min/m2 Mitral Valve Name Value Normal MV Doppler MV Decel Adair 462 cm/s2 MV PHT 65 ms MV Area (PHT) 3.4 cm2 4.0-5.0 MV Diastolic Function MV E Peak Velocity 103 cm/s MV A Peak Velocity 139 cm/s MV E/A 0.7 MV Decel Time 224 ms MV Annular TDI MV E/e' (Septal) 16.3 <=8.0 MV E/e' (Lateral) 12.3 <=8.0 MV E/e' (Average) 14.3 Tricuspid Valve Name Value Normal TV Regurgitation Doppler TR Peak Velocity 345 cm/s TR Peak Gradient 24 mmHg Estimated PAP/RSVP RA Pressure 10 mmHg <=5 PA Systolic Pressure 58 mmHg <36 RV Systolic Pressure 58 mmHg <36 Aortic Valve Name Value Normal AV Doppler AV Peak Velocity 156 cm/s AV Peak Gradient 10 mmHg AV Mean Gradient 6 mmHg AV VTI 36 cm AV Area (Cont Eq VTI) 2.6 cm2 >=3.0 AV Area (Cont Eq Brendon) 2.5 cm2 AV Regurgitation 2D LVOT Area 3.2 cm2 Ventricles Name Value Normal LV Dimensions 2D/MM IVS Diastolic Thickness (2D) 1.0 cm 0.6-1.0 LVID Diastole (2D) 4.3 cm 3.8-5.2 LVIW Diastolic Thickness (2D) 1.1 cm 0.6-0.9 LVID Systole (2D) 2.6 cm 2.2-3.5 LVOT Diameter 2.0 cm LV Mass (2D Cubed) 153.16 g 67.00-162.00 LV Mass Index (2D Cubed) 67 g/m2 43-95 Relative Wall Thickness (2D) 0.52 LV Fractional Shortening/Ejection Fraction 2D/MM LV Fractional Shortening (2D) 40 % 27-45 LV EF (2D Teicholz) 71 % 54-74 LV Diastolic Volume (4C MOD) 58 ml LV EF (4C MOD) 71 % LV Diastolic Volume (2C MOD) 104 ml LV EF (2C MOD) 73 % LV Diastolic Volume (BP MOD) 82 ml 46-106 LV Diastolic Volume Index (BP MOD) 36 ml/m2 29-61 LV Systolic Volume (BP MOD) 23 ml 14-42 LV Systolic Volume Index (BP MOD) 10 ml/m2 8-24 LV EF (BP MOD) 72 % 54-74 LV Diastolic Length (4C) 6.6 cm LV Systolic Length (4C) 5.2 cm LV Stroke Volume (4C MOD) 41 ml Atria Name Value Normal LA Dimensions LA Volume (4C A-L) 19 ml LA Volume (BP A-L) 25 ml RA Dimensions RA Area (4C) 10.4 cm2 <=18.0 Report Signatures
[2024-03-17 04:44] LABS: Basophils Percent Auto 0.3 % (0.2-1.2); Eosinophils Percent Auto 0.2 % (0-4.4); Hematocrit 35.6 % (37.0-47.0); Hemoglobin 11.8 g/dL (12.0-15.0); Immature Granulocyte Absolute 0.03 K/mm3 (0.00-0.031); Immature Granulocyte Percent A 0.3 % (0-0.5); Lymphocytes Absolute Auto 0.86 K/mm3 (0.9-3.2); Lymphocytes Percent Auto 9.7 % (18.3-44.2); Mean Corpuscular HGB Conc 33.1 g/dl (32-36); Mean Corpuscular Hemoglobin 32.9 pg (26-34); Mean Corpuscular Volume 99.2 fl (80-100); Mean Platelet Volume 10.1 fl (7.4-10.4); Monocytes Absolute Auto 0.7 K/mm3 (0.1-0.6); Monocytes Percent Auto 7.9 % (2.6-8.5); Neutrophils Absolute Auto 7.3 K/mm3 (1.3-6.7); Neutrophils Percent Auto 81.6 % (45.5-73.1); Platelet Count Result 227 k/mm3 (150-375); Red Blood Count 3.59 M/mm3 (4.2-5.4); Red Cell Distribution Width 14.5 % (11.5-14.5); White Blood Count 8.9 K/mm3 (4.5-10.0)
[2024-03-17 05:13] LABS: Alanine Aminotransferase 14 U/L (6-35); Albumin Level 3.1 g/dL (3.5-5.1); Alkaline Phosphatase 75 U/L (38-126); Anion Gap 9 mmol/L (4-12); Aspartate Amino Transferase 38 U/L (14-36); Bilirubin,Total 0.7 mg/dL (0.2-1.3); Blood Urea Nitrogen 28 mg/dL (7-17); Calcium 8.9 mg/dL (8.4-10.2); Carbon Dioxide 23 mmol/L (22-30); Chloride 108 mmol/L (98-107); Estimated CRCL calculation 42 ml/min; Estimated Glomerular Filt Rate 48; Glucose 101 mg/dL (65-110); Potassium 4.2 mmol/L (3.4-5.0); Sodium 140 mmol/L (137-145)
[2024-03-17] MEDS: levETIRAcetam IV 750 MG in DEXTROSE 5% 100 ML 430 MG IVPB ×2 (05:28→18:27)
[2024-03-17] MEDS: ENOXAPARIN 40 MG/0.4 ML SYRINGE SUB-Q (09:31)
--- NOTE | 2024-03-17 11:58 | PM.CNCAR ---
Assessment and Plan Assessment and plan (1) Non-ST elevation [place] (NSTEMI): Code(s): I21.4 - Non-ST elevation (NSTEMI) myocardial infarction Status: Acute Assessment and Plan: She does have elevated troponin up to 1.1. This is consistent with non-STEMI but uncertain if this is a type 2 infarction or not. Seizure activity as well as a stroke can also lead to elevated troponins. Again uncertain if this is related to acute plaque rupture at this point not. Regardless, whilst start her on aspirin 81 mg p.o. daily, atorvastatin 40 mg p.o. daily. Fasting lipid panel will be ordered. 2D echocardiogram Doppler is ordered and will be reviewed. Will repeat a troponin until peak. Further workup and recommendation regarding her elevated troponin depend on the above tests. Continue atenolol and lisinopril if blood pressure allows. Will repeat EKG (2) Altered mental state: Code(s): R41.82 - Altered mental status, unspecified Status: Acute Assessment and Plan: Seizure versus stroke versus other (3) Hypertension: Code(s): I10 - Essential (primary) hypertension Status: Acute Assessment and Plan: Continue atenolol and lisinopril as blood pressure allows (4) Seizure: Code(s): R56.9 - Unspecified convulsions Status: Acute Assessment and Plan: Workup for per Neurology (5) Pneumonia: Code(s): J18.9 - Pneumonia, unspecified organism Status: Acute Assessment and Plan: Per hospitalist. History of Present Illness History of Present Illness Consult date/time: 03/17/24 11:58 Requesting physician: Tanja Phillips, [employer] Consult reason: Other (Elevated troponin) Reason For Visit: Concern for CVA/ New Onset SZ Narrative: Date of service: 03/17/2024 Reason for consultation: Elevated troponin Requesting provider: Tanja Phillips History: Patient is an 78-year-old female without known cardiac history. She presented to the hospital following a ?seizure ?. There has been some concern of memory impairment over the past month or so. MRI is scheduled for March. Yesterday her states she had some difficulties with speaking and finding her words. She laid down on the couch and then she started to shake as if she was having seizures. He then called 911. EMS arrived and brought her to the hospital. Apparently EN route, she had another seizure. EMS initially found her unresponsive. Upon arrival to the hospital patient was not responsive with concerns for airway protection and then was intubated. She was started on propofol for sedative as this has anticonvulsant properties. Patient was treated for a code stroke. CT scan head negative for acute bleed.. Chest CTA showed left lower lobe pneumonia, was negative for PE, herniation of the stomach into the chest, prominent pulmonary artery which may indicate pulmonary hypertension. Head and neck CTA showed prominent area in the anterior left cavernous sinus which may be an aneurysm, absent left A1 segment, no definite evidence of occlusion or significant stenosis in the intracerebral arteries although the distal branches of the posterior cerebral arteries are not very clear. Patient then did wake up and follows commands. She was extubated. In the process of workup troponins were ordered and were minimally elevated and have risen to a peak of 1.1 to this point. Patient currently is alert oriented and denies any chest pain, shortness breath, syncope, presyncope, paroxysmal nocturnal dyspnea, orthopnea, edema palpitations Review of Systems Review of Systems: All systems reviewed & are unremarkable except as noted in HPI and below Constitutional: Constitutional: Denies body ache(s) Eyes: Eyes: Denies blurry vision ENT: Reports Normal hearing present Cardiovascular: Cardiovascular: Denies chest pain Respiratory: Respiratory: Denies dyspnea Gastrointestinal: Gastrointestinal: Denies abdominal pain Genitourinary: Genitourinary: Denies hematuria Musculoskeletal: Musculoskeletal: Denies back pain Integumentary/Breasts: Skin/Breast: Denies rash Neurologic: Reports Abnormal speech present and Denies headache(s) Psychiatric: Psychiatric: Denies behavioral changes Endocrine: Endocrine: Denies excessive sweating Hematologic/Lymphatic: Hematologic/Lymphatic: Denies easy bleeding Allergic/Immunologic: Allergic/Immunologic: Denies GI upset with certain foods PMFSH Past Medical History Medical History Arthritis Former smoker Gout Hypertension Rheumatoid arthritis Vitamin D deficiency Surgical History Surgical History H/O foot surgery History of back surgery Family History Family History Mother Dementia Father Bone cancer Sibling Myocardial infarct Social History Social History Social History: Has a son who lives in [place] Smoking packs per day: 0.5 Smoking cigarettes per day: 10.0 Years smoked: 10 Smoking pack-years: 5.00 Smoking status: Former smoker Tobacco type: cigarettes Alcohol intake: never Substance use: never Do You Feel Safe in your Home?: Yes Lack of Transportation: YES Lack of Food: Never True Current Housing: I Have Housing Concerned About Future Housing: No Difficulty Paying Gas/Electric Bills: No Difficulty Paying for Meds: No Currently Unemployed: No Education: High School Diploma/GED Difficulty w/ Childcare or Family Care: No Living arrangements: with family Additional living arrangements comments: , 61 years Spiritual care concerns: No Meds Home Medications and Allergies Home Medications Medication Instructions Recorded Confirmed Type allopurinol 100 mg tablet 100 mg PO DAILY 03/16/24 03/16/24 History atenolol 25 mg tablet 25 mg PO DAILY 03/16/24 03/16/24 History kfemdkm-kfkvjluuy-tivw tablet 1 tablet PO DAILY 03/16/24 03/16/24 History celecoxib 200 mg capsule (Celebrex) 200 mg PO DAILY 03/16/24 03/16/24 History coQ10 (ubiquinol) 200 mg capsule 200 mg PO DAILY 03/16/24 03/16/24 History empagliflozin 10 mg tablet 10 mg PO DAILY 03/16/24 03/16/24 History (Jardiance) lisinopril 40 mg tablet 40 mg PO DAILY 03/16/24 03/16/24 History methotrexate sodium 2.5 mg tablet 2.5 mg PO DAILY 03/16/24 03/16/24 History mv-min-iron 4.5 mg-folic ac 120 1 tablet PO DAILY 03/16/24 03/16/24 History mcg-vit K1 60 mcg-herbal no.352 tablet (Alive Women's Multivitamin) triamterene 75 1 tablet PO DAILY 03/16/24 03/16/24 History mg-hydrochlorothiazide 50 mg tablet Allergies Allergy/AdvReac Type Severity Reaction Status Date / Time No Known Allergies Allergy Verified 03/16/24 09:53 Vital Signs Vital Signs - 24 hr 03/16/24 12:01 03/16/24 12:17 03/16/24 12:31 Temperature 36.6 C 36.4 C Pulse Rate 86 85 82 Respiratory Rate 16 16 16 Blood Pressure 136/56 L 135/56 L 146/56 H Pulse Oximetry 98 99 99 Oxygen Delivery Oxygen Flow Rate Fraction of Inspired Oxygen 03/16/24 12:46 03/16/24 13:16 03/16/24 13:32 Temperature 36.5 C 36.6 C Pulse Rate 85 83 83 Respiratory Rate 16 16 16 Blood Pressure 145/63 H 146/57 H 144/67 H Pulse Oximetry 100 100 100 Oxygen Delivery Oxygen Flow Rate Fraction of Inspired Oxygen 03/16/24 13:47 03/16/24 14:00 03/16/24 14:01 Temperature 36.6 C Pulse Rate 80 78 80 Respiratory Rate 16 20 21 H Blood Pressure 141/61 H 128/110 H Pulse Oximetry 100 100 100 Oxygen Delivery Oxygen Flow Rate Fraction of Inspired Oxygen 03/16/24 14:17 03/16/24 14:47 03/16/24 15:26 Temperature Pulse Rate 76 74 74 Respiratory Rate 18 18 20 Blood Pressure Pulse Oximetry Oxygen Delivery Oxygen Flow Rate Fraction of Inspired Oxygen 03/16/24 14:41 03/16/24 16:41 03/16/24 17:00 Temperature Pulse Rate 76 Respiratory Rate 20 Blood Pressure Pulse Oximetry 99 100 Oxygen Delivery Mechanical Ventilation Mechanical Ventilation Oxygen Flow Rate Fraction of Inspired Oxygen 70 70 03/16/24 14:17 03/16/24 14:32 03/16/24 14:48 Temperature 36.6 C 36.6 C Pulse Rate 76 75 75 Respiratory Rate 18 18 18 Blood Pressure 106/78 104/50 L 108/48 L Pulse Oximetry 100 100 100 Oxygen Delivery Oxygen Flow Rate Fraction of Inspired Oxygen 03/16/24 15:01 03/16/24 15:16 03/16/24 15:33 Temperature 36.4 C Pulse Rate 74 67 71 Respiratory Rate 19 16 15 Blood Pressure 109/41 L 101/35 L 107/26 L Pulse Oximetry 100 100 100 Oxygen Delivery Oxygen Flow Rate Fraction of Inspired Oxygen 03/16/24 16:47 03/16/24 17:20 03/16/24 17:31 Temperature 36.6 C 36.6 C Pulse Rate 79 85 81 Respiratory Rate 18 18 19 Blood Pressure 128/63 127/84 122/63 Pulse Oximetry 100 99 99 Oxygen Delivery Oxygen Flow Rate Fraction of Inspired Oxygen 03/16/24 17:46 03/16/24 18:11 03/16/24 18:30 Temperature 36.6 C 36.6 C Pulse Rate 77 71 68 Respiratory Rate 18 20 18 Blood Pressure 114/76 109/57 L 108/50 L Pulse Oximetry 100 100 100 Oxygen Delivery Oxygen Flow Rate Fraction of Inspired Oxygen 03/16/24 18:45 03/16/24 18:46 03/16/24 19:00 Temperature Pulse Rate 71 70 69 Respiratory Rate 21 H 20 21 H Blood Pressure 99/48 L 96/48 L Pulse Oximetry 100 100 100 Oxygen Delivery Oxygen Flow Rate Fraction of Inspired Oxygen 03/16/24 19:01 03/16/24 19:03 03/16/24 19:15 Temperature Pulse Rate 67 68 66 Respiratory Rate 18 20 22 H Blood Pressure 100/60 94/42 L Pulse Oximetry 100 100 100 Oxygen Delivery Oxygen Flow Rate Fraction of Inspired Oxygen 03/16/24 19:16 03/16/24 19:30 03/16/24 19:33 Temperature 37.7 C H Pulse Rate 67 71 71 Respiratory Rate 20 17 19 Blood Pressure 104/45 L Pulse Oximetry 100 Oxygen Delivery Oxygen Flow Rate Fraction of Inspired Oxygen 03/16/24 19:45 03/16/24 19:46 03/16/24 21:04 Temperature 37.6 C H 37.6 C H 37.6 C H Pulse Rate 73 73 99 Respiratory Rate 24 H 21 H 21 H Blood Pressure 102/52 L 93/60 L Pulse Oximetry 100 100 100 Oxygen Delivery Oxygen Flow Rate Fraction of Inspired Oxygen 03/16/24 20:00 03/16/24 20:01 03/16/24 20:15 Temperature 37.6 C H 37.6 C H 37.6 C H Pulse Rate 72 68 69 Respiratory Rate 36 H 18 27 H Blood Pressure 94/52 L 89/49 L Pulse Oximetry 100 100 100 Oxygen Delivery Oxygen Flow Rate Fraction of Inspired Oxygen 03/16/24 20:16 03/16/24 20:18 03/16/24 20:28 Temperature 37.6 C H 37.6 C H 37.6 C H Pulse Rate 70 71 65 Respiratory Rate 19 26 H 18 Blood Pressure 85/51 L 96/44 L Pulse Oximetry 100 100 100 Oxygen Delivery Oxygen Flow Rate Fraction of Inspired Oxygen 03/16/24 20:30 03/16/24 20:31 03/16/24 20:34 Temperature 37.6 C H 37.6 C H 37.6 C H Pulse Rate 68 68 71 Respiratory Rate 20 20 19 Blood Pressure 89/51 L 92/65 L Pulse Oximetry 100 100 Oxygen Delivery Oxygen Flow Rate Fraction of Inspired Oxygen 03/16/24 20:45 03/16/24 20:46 03/16/24 21:00 Temperature 37.6 C H 37.6 C H 37.6 C H Pulse Rate 68 74 80 Respiratory Rate 20 20 18 Blood Pressure 96/54 L 93/60 L Pulse Oximetry Oxygen Delivery Oxygen Flow Rate Fraction of Inspired Oxygen 03/16/24 21:01 03/16/24 21:41 03/16/24 22:00 Temperature 37.6 C H 37.2 C Pulse Rate 75 73 66 Respiratory Rate 23 H 20 Blood Pressure 122/49 L Pulse Oximetry 100 Oxygen Delivery Oxygen Flow Rate Fraction of Inspired Oxygen 03/16/24 23:58 03/16/24 22:30 03/17/24 00:00 Temperature 37.3 C Pulse Rate 70 70 67 Respiratory Rate 20 20 Blood Pressure 111/45 L Pulse Oximetry 100 100 Oxygen Delivery Nasal Cannula Oxygen Flow Rate 2 Fraction of Inspired Oxygen 03/17/24 02:00 03/17/24 04:30 03/17/24 04:00 Temperature Pulse Rate 76 76 86 Respiratory Rate 20 Blood Pressure Pulse Oximetry 100 Oxygen Delivery Nasal Cannula Oxygen Flow Rate 2 Fraction of Inspired Oxygen 03/17/24 04:00 03/17/24 06:00 03/17/24 08:00 Temperature 37.5 C Pulse Rate 71 68 78 Respiratory Rate 22 H Blood Pressure 101/45 L Pulse Oximetry 100 Oxygen Delivery Oxygen Flow Rate Fraction of Inspired Oxygen 03/17/24 08:47 03/17/24 08:00 03/17/24 10:55 Temperature 37.0 C Pulse Rate 74 Respiratory Rate 12 Blood Pressure 109/59 L Pulse Oximetry 95 100 Oxygen Delivery Nasal Cannula Nasal Cannula Oxygen Flow Rate 1 1 Fraction of Inspired Oxygen 03/17/24 11:56 Temperature 36.7 C Pulse Rate 84 Respiratory Rate 16 Blood Pressure 104/52 L Pulse Oximetry 98 Oxygen Delivery Oxygen Flow Rate Fraction of Inspired Oxygen Exam Narrative: Awake, alert and oriented. Appears stated age Const: General: comfortable and no acute distress HENMT: Face/Nose/Sinus: Normal nares present Mouth: Yes moist mucous membranes Eyes: General: appearance normal, both eyes and all related structures Sclera: sclerae normal Neck: Neck: supple and no JVD Chest: Other: No reproducible chest wall pain to palpation Resp: Effort & Inspection: normal respiratory effort Auscultation: clear to auscultation bilaterally Cardio: Rate: regular rate Rhythm: regular rhythm Heart sounds: no murmurs GI: Inspection: non-distended GI Palp: Yes Soft to palpation Auscultation: normal bowel sounds Skin: General skin exam: normal color Neuro: General: No gait normal Speech: normal speech Extrem: General: normal to inspection Psych: Mental Status: mental status grossly normal Affect: normal affect Results Labs and Meds 03/17/24 04:34 03/17/24 04:33 Lab results: Cardiac Enzymes 03/16/24 03/17/24 Range/Units 22:25 04:33 AST 38 H (14-36) U/L Troponin I 0.527 H* 1.110 H* D (0.000-0.034) ng/mL Lipids 03/16/24 Range/Units 11:02 Triglycerides 120 (<150) mg/dL Cholesterol 181 (0-200) mg/dL CBC 03/17/24 Range/Units 04:34 WBC 8.9 (4.5-10.0) K/mm3 RBC 3.59 L (4.2-5.4) M/mm3 Hgb 11.8 L (12.0-15.0) g/dL Hct 35.6 L (37.0-47.0) % Plt Count 227 (150-375) k/mm3 Lymph # (Auto) 0.86 L (0.9-3.2) K/mm3 [place] # (Auto) 0.7 H (0.1-0.6) K/mm3 Eos # (Auto) 0.0 (0-0.3) K/mm3 Baso # (Auto) 0.0 (0.0-0.1) K/mm3 Comprehensive Metabolic Panel 03/17/24 Range/Units 04:33 Sodium 140 (137-145) mmol/L Potassium 4.2 (3.4-5.0) mmol/L Chloride 108 H (98-107) mmol/L Carbon Dioxide 23 (22-30) mmol/L BUN 28 H (7-17) mg/dL Creatinine 1.10 H (0.7-1.0) mg/dL Glucose 101 (65-110) mg/dL Calcium 8.9 (8.4-10.2) mg/dL AST 38 H (14-36) U/L ALT 14 (6-35) U/L Alkaline Phosphatase 75 (38-126) U/L Total Protein 6.0 L (6.3-8.2) g/dL Albumin 3.1 L (3.5-5.1) g/dL Intake and Output 03/16/24 03/17/24 03/17/24 23:59 07:59 15:59 Intake Total 1099.7 107.5 Output Total 800 Balance 1099.7 -692.5 Intake: IV 1099.7 107.5 Midazolam 100Mg/Ns 100Ml(*Crx) 4.7 100 mg In 100 ml @ 3 MG/HR 3 mls/hr IV CONT .[id number] [facility] Rx# :[id number] Ampicillin 2 gm/Ns 100 ml 2 gm 100 In 100 ml @ 200 mls/hr IVPB ONCE ONE Rx#:[id number] Azithromycin 500 mg/Ns 250 ml 250 500 mg In 250 ml @ 250 mls/hr IVPB Q24H [facility] Rx#:[id number] Vancomycin 1,250 mg/Ns 250 ml 1 500 ,250 mg In 250 ml @ 166.667 mls /hr IVPB ONCE ONE Rx#:[id number] cefTRIAXone 2 GM/NS 100 ML 2 gm 100 In 100 ml @ 200 mls/hr IVPB ONCE STA Rx#:[id number] levETIRAcetam IV 750 mg In 145 107.5 Dextrose 5% 100 ml @ 430 mls/hr IVPB Q12H [facility] Rx#:[id number] Output: Catheter Urine 800 Urethral Catheter 800 Patient Weight 03/17/24 23:59 Weight 100 kg EKG personally reviewed and independently interpreted showing sinus tachycardia no acute ST or T-wave abnormalities
--- NOTE | 2024-03-17 12:05 | P.PNIM_ITS ---
Progress Note: A&P Assessment and Plan (1) Seizure: Code(s): R56.9 - Unspecified convulsions Status: Acute Assessment and Plan: -- reported seizure activity on arrival requiring intubation for airway protection, initially on propofol for sedation and anticonvulsant. patient woke up while in the ED and was extubated on 2 L nasal cannula as she was also following commands and communicating. * head CT was negative for any acute intracranial findings * head/neck CTA showed 0% stenosis in bilateral carotid bulbs, prominent area in the anterior left cavernous sinus which may be an aneurysm, absent left A1 segment, no definite evidence of occlusion or significant stenosis in the intracerebral arteries although the distal branches of the posterior cerebral arteries were not clear on this examination * urine drug screen was positive for benzodiazepines, ETOH less than 10 * MRI of the brain and brainstem with and without contrast ordered * will also obtain echocardiogram with bubble study * neurology consulted * PT/OT/ speech therapy ordered * NPO except for ice chips for possible swallow study * loading dose of Keppra was given while in the ED * continue Keppra and aspirin * Continue seizure precautions * continue neuro checks * Keep section near by at bedside 03/17/24 * MRI brain showed: Swelling and signal abnormality involving anteromedial left temporal lobe suspicious for HSV encephalitis. 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 * requesting transfer to tertiary hospital (4) Pneumonia: Code(s): J18.9 - Pneumonia, unspecified organism Status: Acute Assessment and Plan: * CTA of the chest revealed left lower lobe pneumonia, herniation of the stomach into the chest, negative for PE, prominent pulmonary artery which may indicate pulmonary hypertension * chest x-ray showing airspace opacities in the left mid and lower lung zones consistent with pneumonia * patient was given Rocephin, vancomycin, and ampicillin while in the ED * MRSA was negative and vancomycin was discontinued * will change antibiotic to Rocephin and azithromycin * White blood cell count 9.6 * blood cultures were obtained and are pending (5) Non-ST elevation MD (NSTEMI): Code(s): I21.4 - Non-ST elevation (NSTEMI) myocardial infarction Status: Acute Assessment and Plan: * troponin 0.361 at 11:02 a.m. today * will repeat troponin now * cardiology consulted * EKG showing sinus tachycardia with a rate of 100 with a QTC of 429 03/17/24: * Troponin trending up 1.110 peaked trending down * Cardiology recommendations appreciated * Echo pending (6) Elevated d-dimer: Code(s): R79.89 - Other specified abnormal findings of blood chemistry Status: Acute Assessment and Plan: * D-dimer 3.21 * CTA of the chest was negative for PE RULED OUT Plan Code status: DNR/DNI DVT prophylaxis: SCD Stress ulcer prophylaxis: NA PT/OT notes: Disposition: Patient continues admission to the medical unit for further evaluation and treatment of new onset seizures secondary to suspicious each as the encephalitis. MRI with incidental finding as showing and 12 mm aneurysm in the left carotid there has been a call out for possible transfer to [facility] Spoke with Dr. Quesada from a vascular who stated he would be consulted, with Neurology pending review of imaging. Time Spent With Patient Time with patient: 15 - 25 minutes Subjective Date/time seen: 03/17/24 12:05 Interval history: Patient is 78 year old female admitted for new onset seizures with need for airway protection who was intubated then extubated after regaining consciousness. 03/17/2024: Assumed Care Patient alert eating lunch during assessment. She is able to answer and follow commands but slow with responses. She reports chills and overall not feeling well. Spoke with Spouse and son at beside about MRI findings they are deciding on how aggressive of treatment the want if they decide on potential surgical intervention she will need to be transferred to a tertiary hospital. Review of Systems Review of Systems: All systems reviewed & are unremarkable except as noted in HPI and below Exam Narrative: * GENERAL: [place]se[place] Alert and oriented x 2 but with mild confusion and slow to respond female. * EYES: EOMI. No scleral icterus. PERRLA. * HEENT: Moist mucous membranes. * LUNGS: Clear to auscultation bilaterally. No accessory muscle use. * CARDIOVASCULAR: Regular rate and rhythm. No murmur. No JVD. S1-S2 * ABDOMEN: Soft, non tenderness and non-distended. No palpable masses. * EXTREMITIES: No edema. Non-tender * SKIN: No rashes or lesions. Skin warm, dry. * NEUROLOGIC: No focal neurological deficits. CN II-XII grossly intact * PSYCHIATRIC: tearful mood and affect. Objective Data Vital Signs Vital Signs: Vital Signs - 24 hr 03/16/24 12:17 03/16/24 12:31 03/16/24 12:46 Temperature 97.6 F 97.7 F Pulse Rate 85 82 85 Respiratory Rate 16 16 16 Blood Pressure 135/56 L 146/56 H 145/63 H Pulse Oximetry 99 99 100 Oxygen Delivery Oxygen Flow Rate Fraction of Inspired Oxygen 03/16/24 13:16 03/16/24 13:32 03/16/24 13:47 Temperature 97.9 F 97.8 F Pulse Rate 83 83 80 Respiratory Rate 16 16 16 Blood Pressure 146/57 H 144/67 H 141/61 H Pulse Oximetry 100 100 100 Oxygen Delivery Oxygen Flow Rate Fraction of Inspired Oxygen 03/16/24 14:00 03/16/24 14:01 03/16/24 14:17 Temperature Pulse Rate 78 80 76 Respiratory Rate 20 21 H 18 Blood Pressure 128/110 H Pulse Oximetry 100 100 Oxygen Delivery Oxygen Flow Rate Fraction of Inspired Oxygen 03/16/24 14:47 03/16/24 15:26 03/16/24 14:41 Temperature Pulse Rate 74 74 Respiratory Rate 18 20 Blood Pressure Pulse Oximetry 99 Oxygen Delivery Mechanical Ventilation Oxygen Flow Rate Fraction of Inspired Oxygen 70 03/16/24 16:41 03/16/24 17:00 03/16/24 14:17 Temperature 97.9 F Pulse Rate 76 76 Respiratory Rate 20 18 Blood Pressure 106/78 Pulse Oximetry 100 100 Oxygen Delivery Mechanical Ventilation Oxygen Flow Rate Fraction of Inspired Oxygen 70 03/16/24 14:32 03/16/24 14:48 03/16/24 15:01 Temperature 97.8 F Pulse Rate 75 75 74 Respiratory Rate 18 18 19 Blood Pressure 104/50 L 108/48 L 109/41 L Pulse Oximetry 100 100 100 Oxygen Delivery Oxygen Flow Rate Fraction of Inspired Oxygen 03/16/24 15:16 03/16/24 15:33 03/16/24 16:47 Temperature 97.6 F 97.8 F Pulse Rate 67 71 79 Respiratory Rate 16 15 18 Blood Pressure 101/35 L 107/26 L 128/63 Pulse Oximetry 100 100 100 Oxygen Delivery Oxygen Flow Rate Fraction of Inspired Oxygen 03/16/24 17:20 03/16/24 17:31 03/16/24 17:46 Temperature 97.8 F Pulse Rate 85 81 77 Respiratory Rate 18 19 18 Blood Pressure 127/84 122/63 114/76 Pulse Oximetry 99 99 100 Oxygen Delivery Oxygen Flow Rate Fraction of Inspired Oxygen 03/16/24 18:11 03/16/24 18:30 03/16/24 18:45 Temperature 97.8 F 97.8 F Pulse Rate 71 68 71 Respiratory Rate 20 18 21 H Blood Pressure 109/57 L 108/50 L 99/48 L Pulse Oximetry 100 100 100 Oxygen Delivery Oxygen Flow Rate Fraction of Inspired Oxygen 03/16/24 18:46 03/16/24 19:00 03/16/24 19:01 Temperature Pulse Rate 70 69 67 Respiratory Rate 20 21 H 18 Blood Pressure 96/48 L Pulse Oximetry 100 100 100 Oxygen Delivery Oxygen Flow Rate Fraction of Inspired Oxygen 03/16/24 19:03 03/16/24 19:15 03/16/24 19:16 Temperature Pulse Rate 68 66 67 Respiratory Rate 20 22 H 20 Blood Pressure 100/60 94/42 L Pulse Oximetry 100 100 100 Oxygen Delivery Oxygen Flow Rate Fraction of Inspired Oxygen 03/16/24 19:30 03/16/24 19:33 03/16/24 19:45 Temperature 99.8 F H 99.7 F H Pulse Rate 71 71 73 Respiratory Rate 17 19 24 H Blood Pressure 104/45 L 102/52 L Pulse Oximetry 100 Oxygen Delivery Oxygen Flow Rate Fraction of Inspired Oxygen 03/16/24 19:46 03/16/24 21:04 03/16/24 20:00 Temperature 99.7 F H 99.7 F H 99.7 F H Pulse Rate 73 99 72 Respiratory Rate 21 H 21 H 36 H Blood Pressure 93/60 L 94/52 L Pulse Oximetry 100 100 100 Oxygen Delivery Oxygen Flow Rate Fraction of Inspired Oxygen 03/16/24 20:01 03/16/24 20:15 03/16/24 20:16 Temperature 99.7 F H 99.7 F H 99.7 F H Pulse Rate 68 69 70 Respiratory Rate 18 27 H 19 Blood Pressure 89/49 L Pulse Oximetry 100 100 100 Oxygen Delivery Oxygen Flow Rate Fraction of Inspired Oxygen 03/16/24 20:18 03/16/24 20:28 03/16/24 20:30 Temperature 99.7 F H 99.7 F H 99.7 F H Pulse Rate 71 65 68 Respiratory Rate 26 H 18 20 Blood Pressure 85/51 L 96/44 L 89/51 L Pulse Oximetry 100 100 100 Oxygen Delivery Oxygen Flow Rate Fraction of Inspired Oxygen 03/16/24 20:31 03/16/24 20:34 03/16/24 20:45 Temperature 99.7 F H 99.7 F H 99.7 F H Pulse Rate 68 71 68 Respiratory Rate 20 19 20 Blood Pressure 92/65 L 96/54 L Pulse Oximetry 100 Oxygen Delivery Oxygen Flow Rate Fraction of Inspired Oxygen 03/16/24 20:46 03/16/24 21:00 03/16/24 21:01 Temperature 99.7 F H 99.7 F H 99.7 F H Pulse Rate 74 80 75 Respiratory Rate 20 18 23 H Blood Pressure 93/60 L Pulse Oximetry Oxygen Delivery Oxygen Flow Rate Fraction of Inspired Oxygen 03/16/24 21:41 03/16/24 22:00 03/16/24 23:58 Temperature 99 F 99.1 F Pulse Rate 73 66 70 Respiratory Rate 20 20 Blood Pressure 122/49 L 111/45 L Pulse Oximetry 100 100 Oxygen Delivery Oxygen Flow Rate Fraction of Inspired Oxygen 03/16/24 22:30 03/17/24 00:00 03/17/24 02:00 Temperature Pulse Rate 70 67 76 Respiratory Rate 20 Blood Pressure Pulse Oximetry 100 Oxygen Delivery Nasal Cannula Oxygen Flow Rate 2 Fraction of Inspired Oxygen 03/17/24 04:30 03/17/24 04:00 03/17/24 04:00 Temperature 99.5 F Pulse Rate 76 86 71 Respiratory Rate 20 22 H Blood Pressure 101/45 L Pulse Oximetry 100 100 Oxygen Delivery Nasal Cannula Oxygen Flow Rate 2 Fraction of Inspired Oxygen 03/17/24 06:00 03/17/24 08:00 03/17/24 08:47 Temperature Pulse Rate 68 78 Respiratory Rate Blood Pressure Pulse Oximetry 95 Oxygen Delivery Nasal Cannula Oxygen Flow Rate 1 Fraction of Inspired Oxygen 03/17/24 08:00 03/17/24 10:55 03/17/24 11:56 Temperature 98.6 F 98.1 F Pulse Rate 74 84 Respiratory Rate 12 16 Blood Pressure 109/59 L 104/52 L Pulse Oximetry 100 98 Oxygen Delivery Nasal Cannula Oxygen Flow Rate 1 Fraction of Inspired Oxygen Intake/Output Intake/Output: Intake & Output 03/14/24 03/15/24 03/16/24 03/17/24 23:59 23:59 23:59 23:59 Intake Total 1101.5 107.5 Output Total 800 Balance 1101.5 -692.5 Meds/Results Medications: Active Medications Generic Name Dose Route Start Last Admin Trade Name Freq PRN Reason Stop Dose Admin Acetaminophen 650 mg 03/16/24 17:50 Acetaminophen 325 Mg Tablet PO Q4H PRN Mild Pain (1-3) or Fever Dextrose 12.5 gm 03/16/24 17:52 Dextrose 50% 25 Gm/50 Ml Syringe IV PUSH PRN PRN Hypoglycemia Protocol Enoxaparin Sodium 40 mg 03/17/24 09:00 03/17/24 09:31 Enoxaparin 40 Mg/0.4 Ml Syringe SUB-Q 40 mg DAILY OBDULIA Administration Glucagon 1 mg 03/16/24 17:52 Glucagon For Inj 1 Mg Vial IM PRN PRN Hypoglycemia Protocol Glucose 15 gm 03/16/24 17:52 Glucose Oral Gel 15 Gm Of Glucse In 37.5 Gm Tube PO PRN PRN Hypoglycemia Protocol Dextrose 1,000 mls @ 100 mls/hr 03/16/24 17:52 Dextrose 5% 1,000 Ml IVPB PRN PRN Hypoglycemia Protocol Levetiracetam 750 mg/ Dextrose 107.5 mls @ 430 mls/hr 03/17/24 06:00 03/17/24 05:45 IVPB Infused Q12H OBDULIA Infusion Ceftriaxone Sodium 1 gm in 50 mls @ 100 mls/hr 03/17/24 18:00 Rocephin 1 Gm/Ns 50 Ml IVPB Q24H OBDULIA Azithromycin 500 mg in 250 mls @ 250 mls/hr 03/16/24 21:00 03/16/24 22:55 Zithromax IVPB Infused Q24H OBDULIA Infusion Ondansetron HCl 4 mg 03/16/24 17:50 Ondansetron Inj 4 Mg/2 Ml Vial IV PUSH Q4H PRN Nausea Perflutren Lipid Microsphere 0 ml 03/16/24 20:30 Perflutren Lipid Microspheres 1.5 Ml Vial Diluted To 10 Ml Total Volume IV PUSH 03/19/24 20:30 ONCE PRN adequate visualization Protocol Radiology Results: ITS Impressions Chest X-Ray 03/16/24 10:17 IMPRESSION: 1. Endotracheal tube tip in the right mainstem bronchus. I called this result to Dr. Painting. 2. Airspace opacities in left mid and lower lung zones, consistent with atelectasis versus pneumonia. 3. Blunting of left lateral costophrenic angle, which may be a prominent fat pad or a small pleural effusion. 4. Large hiatal hernia. Head CT 03/16/24 10:24 IMPRESSION: 1. Normal aging brain. Chest CTA 03/16/24 16:42 IMPRESSION: 1. Left lower lobe pneumonia. 2. No pulmonary embolism. 3. Herniation of the stomach into the chest. 4. Prominent pulmonary artery which may indicate pulmonary hypertension. Head/Neck CTA 03/16/24 17:01 IMPRESSION: 1. CTA head and neck. Percent stenosis per NASCET criteria is 0%. 2. Prominent area in the anterior left cavernous sinus which may be an aneurysm. Further evaluation advised. 3. Absent left A1 segment. 4. Posterior communicating arteries continue otherwise posterior cerebral arteries. 5. No definite evidence of occlusion or significant stenosis in the intracerebral arteries although the distal branches of the posterior cerebral arteries are not very clear. Labs Labs: Laboratory Results - last 24 hr 03/16/24 03/16/24 03/16/24 11:02 14:49 16:57 WBC RBC Hgb Hct MCV MCH MCHC RDW Plt Count MPV Immature Gran % (Auto) Neut % (Auto) Lymph % (Auto) [place] % (Auto) Eos % (Auto) Baso % (Auto) Lymph # (Auto) [place] # (Auto) Eos # (Auto) Baso # (Auto) Abs Immat Gran (auto) Absolute Neuts (auto) Absolute Nucleated RBC Nucleated RBC % D-Dimer 3.21 H Sodium Potassium Chloride Carbon Dioxide Anion Gap BUN Creatinine Estim Creat Clear Calc Estimated GFR Glucose POC Capillary Glucose Hemoglobin A1c 5.6 Lactic Acid 1.5 Calcium Magnesium 2.2 Total Bilirubin AST ALT Alkaline Phosphatase Troponin I Total Protein Albumin Triglycerides 120 Cholesterol 181 LDL Cholesterol Direct 87 HDL Direct 50 TSH 0.910 Nasal MRSA (PCR) Not detected 03/16/24 03/16/24 03/17/24 21:46 22:25 04:33 WBC RBC Hgb Hct MCV MCH MCHC RDW Plt Count MPV Immature Gran % (Auto) Neut % (Auto) Lymph % (Auto) [place] % (Auto) Eos % (Auto) Baso % (Auto) Lymph # (Auto) [place] # (Auto) Eos # (Auto) Baso # (Auto) Abs Immat Gran (auto) Absolute Neuts (auto) Absolute Nucleated RBC Nucleated RBC % D-Dimer Sodium 140 Potassium 4.2 Chloride 108 H Carbon Dioxide 23 Anion Gap 9 BUN 28 H Creatinine 1.10 H Estim Creat Clear Calc 42 Estimated GFR 48 L Glucose 101 POC Capillary Glucose 109 H Hemoglobin A1c Lactic Acid Calcium 8.9 Magnesium Total Bilirubin 0.7 AST 38 H ALT 14 Alkaline Phosphatase 75 Troponin I 0.527 H* 1.110 H* D Total Protein 6.0 L Albumin 3.1 L Triglycerides Cholesterol LDL Cholesterol Direct HDL Direct TSH 0.471 Nasal MRSA (PCR) 03/17/24 04:34 WBC 8.9 RBC 3.59 L Hgb 11.8 L Hct 35.6 L MCV 99.2 MCH 32.9 MCHC 33.1 RDW 14.5 Plt Count 227 MPV 10.1 Immature Gran % (Auto) 0.3 Neut % (Auto) 81.6 H Lymph % (Auto) 9.7 L [place] % (Auto) 7.9 Eos % (Auto) 0.2 Baso % (Auto) 0.3 Lymph # (Auto) 0.86 L [place] # (Auto) 0.7 H Eos # (Auto) 0.0 Baso # (Auto) 0.0 Abs Immat Gran (auto) 0.03 Absolute Neuts (auto) 7.3 H Absolute Nucleated RBC 0.000 Nucleated RBC % 0.0 D-Dimer Sodium Potassium Chloride Carbon Dioxide Anion Gap BUN Creatinine Estim Creat Clear Calc Estimated GFR Glucose POC Capillary Glucose Hemoglobin A1c Lactic Acid Calcium Magnesium Total Bilirubin AST ALT Alkaline Phosphatase Troponin I Total Protein Albumin Triglycerides Cholesterol LDL Cholesterol Direct HDL Direct TSH Nasal MRSA (PCR) Quality VTE Prophylaxis VTE prophylaxis: pharmacologic ordered -Patient's previous records reviewed on admission -ER notes reviewed in detail on admission -discussed all findings and current treatment plan with patient/Family/POA -Consultations reviewed for recommendations -Patient's disposition for safe discharge discussed with nurse case management Dictation performed by [employer] direct speech recognition software, therefore sales floor associate variants and typographical errors may occur. Hospitalist MIPS Advance Care Plan I have confirmed that the patient's Advanced Care Plan is present, code status is documented, or surrogate decision maker is listed in patient medical record.: Yes Medication Reconciliation I have utilized all available resources to obtain, update and review the patients current medications (includes all prescriptions, OTC, herbals, cannabis, and nutritional supplements).: Yes The patient is not eligible for med reconciliation; the patient is in a emergent medical situation where delaying treatment would jeopardize the patients health.: No
--- NOTE | 2024-03-17 12:10 | ECG_ITS ---
Test Date: 2024-03-17 12:30:36 Measurements Intervals [place] Rate: 82 P: 50 AL: 160 QRS: -18 QRSD: 70 T: 4 QT: 380 QTc: 444 Interpretive Statements SINUS RHYTHM POSSIBLE LEFT ATRIAL ENLARGEMENT [-0.1mV P-WAVE IN V1/V2] BORDERLINE ECG Compared to ECG 03/16/2024 10:03:49 Sinus tachycardia no longer present Electronically Signed On 03-17-2024 13:19:28 CDT by Janusz Danielle M.D.
--- NOTE | 2024-03-17 12:42 | P.CONNEU_ITS ---
Assessment and Plan Assessment and plan (1) Hypertension: Code(s): I10 - Essential (primary) hypertension Status: Acute (2) Altered mental state: Code(s): R41.82 - Altered mental status, unspecified Status: Acute (3) Seizure: Code(s): R56.9 - Unspecified convulsions Status: Acute (4) Glucosuria: Code(s): R81 - Glycosuria Status: Acute (5) Dementia: Code(s): F03.90 - Unspecified dementia, unspecified severity, without behavioral disturbance, psychotic disturbance, mood disturbance, and anxiety Status: Acute Plan 1. Dementia for which she was being evaluated with new specific mention about the vivid hallucination to consider the possible Lewy body dementia at this particular time, 2. Seizure with negative CT scan of the head for any bleed or major space-occupying lesion. Even though she has been made no code if necessary MRI of the head can be obtained for long-term discussion. Should be maintained on seizure precaution and seizure medications that is Keppra 500mg twice a day. Will also need the EEG for his long-term documentation of the diagnosis. Dr. Danielle already seen. Had a long discussion with her as well as her son there were concern about that she was recently started on Jardiance 10mg daily for that is a contributing factor but her BMP is normal her sodium is 140 potassium 4.2 and BUN 28 which could be underlying renal problem or mild dehydration which can assume cause of the Jardiance. Chest CT has documented left lower old pneumonia with herniation the stomach into the chest which will be treated accordingly. Consult date: 03/17/24 HPI: Colette Espino is a 78 year old female Admitted to the hospital through the emergency room reportedly she was found unconscious on the couch at her home by her the morning with obvious disc conjugate gaze and witnessing the seizure lasted for about 45seconds but with no history of previous seizure. Then she had another seizure which lasted [id number] she was given Versed 5mg and EMS attempted to intubate her x1 because of desaturation to 88 to 92% and for the airway protection but was unsuccessful as per the patient has never had any stroke her initial blood pressure was 168/82 blood glu cose 146 initial plan was to go to the tertiary care but because of seizure she she brought to the [facility] ER. She has been on multiple medications including allopurinol 100mg daily, atenolol 25mg daily, Celebrex 200mg daily, Jardiance 10mg daily, lisinopril 40mg daily, methotrexate 2.5mg daily, triamterene 75mg daily, she has ongoing history of years smoked 10, his smoking pack years 5 but at present former smoker and also she has never alcohol intake. Initial exam in the emergency room was grossly nonfocal though she was not localizing to pain or verbal stimuli and not alert oriented. Her vital signs were normal, in the emergency room it was documented as per the discussion with the ER physician that her did not want her to be intubated because of her desire. She has been experiencing memory loss over the last 1 month with extreme difficulties in word finding and was having difficulties to say what she wanted to say she was supposed to have an MRI of the brain at [facility] in March, they desire was to [facility] suggested she will require the continuous EEG, her contact the [facility] as well but there was significant delay in the bed availability. Routine lab studies here non to estimated GFR was 48 with glycosuria on UA in toxicology was positive only for benzodiazepine. CT scan of the brain was normal without any bleed, CTA of the chest documented left lower lobe pneumonia no embolism but herniation the stomach into the chest. She has been made DNR in the ER after discussion as per the wishes of the patient she has been extubated and also given aspirin and loading dose of Keppra in the ER. [facility] Past Medical History Medical History Arthritis Former smoker Gout Hypertension Rheumatoid arthritis Vitamin D deficiency Surgical History Surgical History H/O foot surgery History of back surgery Family History Family History Mother Dementia Father Bone cancer Sibling Myocardial infarct Social History Social History Social History: Has a son who lives in [place] Smoking packs per day: 0.5 Smoking cigarettes per day: 10.0 Years smoked: 10 Smoking pack-years: 5.00 Smoking status: Former smoker Tobacco type: cigarettes Alcohol intake: never Substance use: never Do You Feel Safe in your Home?: Yes Lack of Transportation: YES Lack of Food: Never True Current Housing: I Have Housing Concerned About Future Housing: No Difficulty Paying Gas/Electric Bills: No Difficulty Paying for Meds: No Currently Unemployed: No Education: High School Diploma/GED Difficulty w/ Childcare or Family Care: No Living arrangements: with family Additional living arrangements comments: , 61 years Spiritual care concerns: No Meds Home Medications and Allergies Home Medications Medication Instructions Recorded Confirmed Type allopurinol 100 mg tablet 100 mg PO DAILY 03/16/24 03/16/24 History atenolol 25 mg tablet 25 mg PO DAILY 03/16/24 03/16/24 History usmoydq-mmttzwjbm-uwju tablet 1 tablet PO DAILY 03/16/24 03/16/24 History celecoxib 200 mg capsule (Celebrex) 200 mg PO DAILY 03/16/24 03/16/24 History coQ10 (ubiquinol) 200 mg capsule 200 mg PO DAILY 03/16/24 03/16/24 History empagliflozin 10 mg tablet 10 mg PO DAILY 03/16/24 03/16/24 History (Jardiance) lisinopril 40 mg tablet 40 mg PO DAILY 03/16/24 03/16/24 History methotrexate sodium 2.5 mg tablet 2.5 mg PO DAILY 03/16/24 03/16/24 History mv-min-iron 4.5 mg-folic ac 120 1 tablet PO DAILY 03/16/24 03/16/24 History mcg-vit K1 60 mcg-herbal no.352 tablet (Alive Women's Multivitamin) triamterene 75 1 tablet PO DAILY 03/16/24 03/16/24 History mg-hydrochlorothiazide 50 mg tablet esomeprazole magnesium 40 mg 40 mg PO DAILY 03/17/24 03/17/24 History capsule,delayed release Allergies Allergy/AdvReac Type Severity Reaction Status Date / Time No Known Allergies Allergy Verified 03/16/24 09:53 Vital Signs Vital Signs - 24 hr 03/16/24 12:46 03/16/24 13:16 03/16/24 13:32 Temperature 36.5 C 36.6 C Pulse Rate 85 83 83 Respiratory Rate 16 16 16 Blood Pressure 145/63 H 146/57 H 144/67 H Pulse Oximetry 100 100 100 Oxygen Delivery Oxygen Flow Rate Fraction of Inspired Oxygen 03/16/24 13:47 03/16/24 14:00 03/16/24 14:01 Temperature 36.6 C Pulse Rate 80 78 80 Respiratory Rate 16 20 21 H Blood Pressure 141/61 H 128/110 H Pulse Oximetry 100 100 100 Oxygen Delivery Oxygen Flow Rate Fraction of Inspired Oxygen 03/16/24 14:17 03/16/24 14:47 03/16/24 15:26 Temperature Pulse Rate 76 74 74 Respiratory Rate 18 18 20 Blood Pressure Pulse Oximetry Oxygen Delivery Oxygen Flow Rate Fraction of Inspired Oxygen 03/16/24 14:41 03/16/24 16:41 03/16/24 17:00 Temperature Pulse Rate 76 Respiratory Rate 20 Blood Pressure Pulse Oximetry 99 100 Oxygen Delivery Mechanical Ventilation Mechanical Ventilation Oxygen Flow Rate Fraction of Inspired Oxygen 70 70 03/16/24 14:17 03/16/24 14:32 03/16/24 14:48 Temperature 36.6 C 36.6 C Pulse Rate 76 75 75 Respiratory Rate 18 18 18 Blood Pressure 106/78 104/50 L 108/48 L Pulse Oximetry 100 100 100 Oxygen Delivery Oxygen Flow Rate Fraction of Inspired Oxygen 03/16/24 15:01 03/16/24 15:16 03/16/24 15:33 Temperature 36.4 C Pulse Rate 74 67 71 Respiratory Rate 19 16 15 Blood Pressure 109/41 L 101/35 L 107/26 L Pulse Oximetry 100 100 100 Oxygen Delivery Oxygen Flow Rate Fraction of Inspired Oxygen 03/16/24 16:47 03/16/24 17:20 03/16/24 17:31 Temperature 36.6 C 36.6 C Pulse Rate 79 85 81 Respiratory Rate 18 18 19 Blood Pressure 128/63 127/84 122/63 Pulse Oximetry 100 99 99 Oxygen Delivery Oxygen Flow Rate Fraction of Inspired Oxygen 03/16/24 17:46 03/16/24 18:11 03/16/24 18:30 Temperature 36.6 C 36.6 C Pulse Rate 77 71 68 Respiratory Rate 18 20 18 Blood Pressure 114/76 109/57 L 108/50 L Pulse Oximetry 100 100 100 Oxygen Delivery Oxygen Flow Rate Fraction of Inspired Oxygen 03/16/24 18:45 03/16/24 18:46 03/16/24 19:00 Temperature Pulse Rate 71 70 69 Respiratory Rate 21 H 20 21 H Blood Pressure 99/48 L 96/48 L Pulse Oximetry 100 100 100 Oxygen Delivery Oxygen Flow Rate Fraction of Inspired Oxygen 03/16/24 19:01 03/16/24 19:03 03/16/24 19:15 Temperature Pulse Rate 67 68 66 Respiratory Rate 18 20 22 H Blood Pressure 100/60 94/42 L Pulse Oximetry 100 100 100 Oxygen Delivery Oxygen Flow Rate Fraction of Inspired Oxygen 03/16/24 19:16 03/16/24 19:30 03/16/24 19:33 Temperature 37.7 C H Pulse Rate 67 71 71 Respiratory Rate 20 17 19 Blood Pressure 104/45 L Pulse Oximetry 100 Oxygen Delivery Oxygen Flow Rate Fraction of Inspired Oxygen 03/16/24 19:45 03/16/24 19:46 03/16/24 21:04 Temperature 37.6 C H 37.6 C H 37.6 C H Pulse Rate 73 73 99 Respiratory Rate 24 H 21 H 21 H Blood Pressure 102/52 L 93/60 L Pulse Oximetry 100 100 100 Oxygen Delivery Oxygen Flow Rate Fraction of Inspired Oxygen 03/16/24 20:00 03/16/24 20:01 03/16/24 20:15 Temperature 37.6 C H 37.6 C H 37.6 C H Pulse Rate 72 68 69 Respiratory Rate 36 H 18 27 H Blood Pressure 94/52 L 89/49 L Pulse Oximetry 100 100 100 Oxygen Delivery Oxygen Flow Rate Fraction of Inspired Oxygen 03/16/24 20:16 03/16/24 20:18 03/16/24 20:28 Temperature 37.6 C H 37.6 C H 37.6 C H Pulse Rate 70 71 65 Respiratory Rate 19 26 H 18 Blood Pressure 85/51 L 96/44 L Pulse Oximetry 100 100 100 Oxygen Delivery Oxygen Flow Rate Fraction of Inspired Oxygen 03/16/24 20:30 03/16/24 20:31 03/16/24 20:34 Temperature 37.6 C H 37.6 C H 37.6 C H Pulse Rate 68 68 71 Respiratory Rate 20 20 19 Blood Pressure 89/51 L 92/65 L Pulse Oximetry 100 100 Oxygen Delivery Oxygen Flow Rate Fraction of Inspired Oxygen 03/16/24 20:45 03/16/24 20:46 03/16/24 21:00 Temperature 37.6 C H 37.6 C H 37.6 C H Pulse Rate 68 74 80 Respiratory Rate 20 20 18 Blood Pressure 96/54 L 93/60 L Pulse Oximetry Oxygen Delivery Oxygen Flow Rate Fraction of Inspired Oxygen 03/16/24 21:01 03/16/24 21:41 03/16/24 22:00 Temperature 37.6 C H 37.2 C Pulse Rate 75 73 66 Respiratory Rate 23 H 20 Blood Pressure 122/49 L Pulse Oximetry 100 Oxygen Delivery Oxygen Flow Rate Fraction of Inspired Oxygen 03/16/24 23:58 03/16/24 22:30 03/17/24 00:00 Temperature 37.3 C Pulse Rate 70 70 67 Respiratory Rate 20 20 Blood Pressure 111/45 L Pulse Oximetry 100 100 Oxygen Delivery Nasal Cannula Oxygen Flow Rate 2 Fraction of Inspired Oxygen 03/17/24 02:00 03/17/24 04:30 03/17/24 04:00 Temperature Pulse Rate 76 76 86 Respiratory Rate 20 Blood Pressure Pulse Oximetry 100 Oxygen Delivery Nasal Cannula Oxygen Flow Rate 2 Fraction of Inspired Oxygen 03/17/24 04:00 03/17/24 06:00 03/17/24 08:00 Temperature 37.5 C Pulse Rate 71 68 78 Respiratory Rate 22 H Blood Pressure 101/45 L Pulse Oximetry 100 Oxygen Delivery Oxygen Flow Rate Fraction of Inspired Oxygen 03/17/24 08:47 03/17/24 08:00 03/17/24 10:55 Temperature 37.0 C Pulse Rate 74 Respiratory Rate 12 Blood Pressure 109/59 L Pulse Oximetry 95 100 Oxygen Delivery Nasal Cannula Nasal Cannula Oxygen Flow Rate 1 1 Fraction of Inspired Oxygen 03/17/24 11:56 03/17/24 11:01 03/17/24 12:00 Temperature 36.7 C Pulse Rate 84 83 Respiratory Rate 16 Blood Pressure 104/52 L Pulse Oximetry 98 Oxygen Delivery Nasal Cannula Oxygen Flow Rate 1 Fraction of Inspired Oxygen Exam Narrative: Awake alert cooperative in no obvious acute distress, head normocephalic with no bruit, ear nose throat exam normal, neck supple with no meningeal signs no cervical bruit no thyromegaly no lymphadenopathy, heart regular with no murmur, lungs clear, abdomen soft nontender, neurologically she was awake alert was able to follow few commands sitting in the chair without any truncal ataxia and interested in what the physician were discussing with the family members pupils round regular feels the vision grossly full extraocular is full with no nystagmus facial sensation intact face symmetrical tongue midline motor examination revealed her to have no drift of 1 side or other side and tone was normal reflexes symmetrical plantars downgoing. Results Labs 10/26/24 04:34 03/17/24 04:33 Labs: Short CBC 03/17/24 Range/Units 04:34 WBC 8.9 (4.5-10.0) K/mm3 Hgb 11.8 L (12.0-15.0) g/dL Hct 35.6 L (37.0-47.0) % Plt Count 227 (150-375) k/mm3 BMP 03/17/24 04:33 Sodium 140 Potassium 4.2 Chloride 108 H Carbon Dioxide 23 BUN 28 H Creatinine 1.10 H Glucose 101 Calcium 8.9 Cardiac Enzymes 03/16/24 03/17/24 Range/Units 22:25 04:33 Troponin I 0.527 H* 1.110 H* D (0.000-0.034) ng/mL Liver Function 03/17/24 Range/Units 04:33 Total Bilirubin 0.7 (0.2-1.3) mg/dL AST 38 H (14-36) U/L ALT 14 (6-35) U/L Alkaline Phosphatase 75 (38-126) U/L Albumin 3.1 L (3.5-5.1) g/dL
[2024-03-17 13:22] LABS: Cholesterol 162 mg/dL (0-200); HDL Direct 46 mg/dL; Triglycerides 89 mg/dL (<150)
[2024-03-17 13:33] LABS: LDL Cholesterol Direct 83 mg/dL
[2024-03-17 13:37] LABS: Glucose Point of Care 105 mg/dl (65-105)
--- NOTE | 2024-03-17 14:46 | PC.NURSE ---
Reviewed and acknowledge charting Whit MILES
[2024-03-17 15:25] LABS: Troponin I 0.984 ng/mL (0.000-0.034)
[2024-03-17] MEDS: ACYCLOVIR SODIUM IVPB 1,000 MG in DEXTROSE 5% IN WATER 250 ML 250 MG IVPB (16:27)
[2024-03-17 17:46] LABS: Glucose Point of Care 144 mg/dl (65-105)
[2024-03-17 20:33] LABS: Glucose Point of Care 150 mg/dl (65-105)
[2024-03-17] MEDS: AZITHROMYCIN 500 MG/NS 250 ML 500 MG/250 ML BAG 250 MG IVPB (20:59)
[2024-03-17] MEDS: SALINE LOCK FLUSH 10 ML IV PUSH (20:59)
[2024-03-18] VITALS (19 sets, daily range): BP systolic 94–122; BP diastolic 32–48; PULSE 70–87; RESP 12–24; TEMP 36.6–37.1; O2SAT 90–98
[2024-03-18] MEDS: SODIUM CHLOR 3% 15 ML NEB (RESPIRATORY THERAPY) 6 ML INHALATION (04:20)
[2024-03-18] MEDS: SALINE LOCK FLUSH 10 ML IV PUSH ×2 (05:28→16:03)
[2024-03-18] MEDS: ACYCLOVIR SODIUM IVPB 1,000 MG in DEXTROSE 5% IN WATER 250 ML 250 MG IVPB ×2 (05:29→16:35)
[2024-03-18 05:46] LABS: Basophils Percent Auto 0.5 % (0.2-1.2); Eosinophils Absolute Auto 0.1 K/mm3 (0-0.3); Hematocrit 31.3 % (37.0-47.0); Hemoglobin 10.4 g/dL (12.0-15.0); Immature Granulocyte Absolute 0.04 K/mm3 (0.00-0.031); Immature Granulocyte Percent A 0.5 % (0-0.5); Lymphocytes Absolute Auto 1.14 K/mm3 (0.9-3.2); Lymphocytes Percent Auto 14.2 % (18.3-44.2); Mean Corpuscular HGB Conc 33.2 g/dl (32-36); Mean Corpuscular Volume 99.4 fl (80-100); Monocytes Absolute Auto 0.8 K/mm3 (0.1-0.6); Monocytes Percent Auto 9.6 % (2.6-8.5); Neutrophils Percent Auto 74.2 % (45.5-73.1); Platelet Count Result 183 k/mm3 (150-375); Red Blood Count 3.15 M/mm3 (4.2-5.4); Red Cell Distribution Width 14.4 % (11.5-14.5)
[2024-03-18 05:59] LABS: Alanine Aminotransferase 13 U/L (6-35); Albumin Level 2.9 g/dL (3.5-5.1); Alkaline Phosphatase 66 U/L (38-126); Anion Gap 5 mmol/L (4-12); Aspartate Amino Transferase 38 U/L (14-36); Bilirubin,Total 0.6 mg/dL (0.2-1.3); Blood Urea Nitrogen 34 mg/dL (7-17); Calcium 8.5 mg/dL (8.4-10.2); Carbon Dioxide 25 mmol/L (22-30); Chloride 107 mmol/L (98-107); Estimated CRCL calculation 32 ml/min; Estimated Glomerular Filt Rate 33; Glucose 88 mg/dL (65-110); Potassium 3.7 mmol/L (3.4-5.0); Sodium 137 mmol/L (137-145)
[2024-03-18] MEDS: levETIRAcetam IV 750 MG in DEXTROSE 5% 100 ML 430 MG IVPB ×2 (06:42→17:53)
[2024-03-18 07:50] LABS: Glucose Point of Care 115 mg/dl (65-105)
[2024-03-18] MEDS: ASPIRIN 81 MG ENTERIC TABLET PO (08:45)
[2024-03-18] MEDS: atenoloL 25 MG TABLET PO (08:45)
[2024-03-18] MEDS: CELECOXIB 200 MG CAPSULE PO (08:45)
[2024-03-18] MEDS: ATORVASTATIN 20 MG TABLET PO (08:45)
[2024-03-18] MEDS: ENOXAPARIN 40 MG/0.4 ML SYRINGE SUB-Q (09:06)
[2024-03-18 11:59] LABS: Glucose Point of Care 130 mg/dl (65-105)
[2024-03-18 12:39] LABS: CSF source CSF
[2024-03-18 12:41] LABS: Glucose CSF 60 mg/dL (40-70); Total Protein CSF 61 mg/dL (12-60)
[2024-03-18 12:41] LABS: Appearance CSF Clear (Clear); Color CSF Colorless (Colorless)
[2024-03-18 12:42] LABS: Nucleated Cell CSF 1 /uL (0-5)
--- NOTE | 2024-03-18 12:42 | P.PNCA_ITS ---
Progress Note: A&P Assessment and Plan (1) Non-ST elevation MO (NSTEMI): Code(s): I21.4 - Non-ST elevation (NSTEMI) myocardial infarction Status: Acute Assessment and Plan: Troponin peaked to 1.1. Likely type 2 infarction. Seizure activity as well as a stroke can also lead to elevated troponins. Regardless, continue aspirin 81 mg p.o. daily, atorvastatin 40 mg p.o. daily. Echocardiogram showed no signi ficant wall motion abnormalities and preserved ejection fraction. Continue atenolol and lisinopril if blood pressure allows. 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 Neurology following. 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 Subjective Date/time seen: 03/18/24 12:42 Interval history: 78-year-old admitted for altered mental status, possible seizure or stroke Date of service 03/18/2024: No chest pain, shortness of breath. 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 Review of Systems Review of Systems: All systems reviewed & are unremarkable except as noted in HPI and below Constitutional: Constitutional: Denies body ache(s), Denies excessive sweating and Denies headache(s) Eyes: Eyes: Denies blurry vision ENT: Reports Normal hearing present and Denies headache(s) Cardiovascular: Cardiovascular: Denies chest pain and Denies dyspnea Respiratory: Respiratory: Denies dyspnea Gastrointestinal: Gastrointestinal: Denies abdominal pain Genitourinary: Genitourinary: Denies hematuria Musculoskeletal: Musculoskeletal: Denies back pain Integumentary/Breasts: Skin/Breast: Denies rash Neurologic: Reports Normal hearing present, Reports Abnormal speech present, Denies behavioral changes and Denies headache(s) Psychiatric: Psychiatric: Denies behavioral changes Endocrine: Endocrine: Denies excessive sweating Hematologic/Lymphatic: Hematologic/Lymphatic: Denies easy bleeding Allergic/Immunologic: Allergic/Immunologic: Denies GI upset with certain foods Exam Narrative: Awake, alert and oriented. Appears stated age Const: General: comfortable and no acute distress HENMT: Face/Nose/Sinus: Normal nares present Mouth: Yes moist mucous membranes Eyes: General: appearance normal, both eyes and all related structures Sclera: sclerae normal Neck: Neck: supple and no JVD Chest: Other: No reproducible chest wall pain to palpation Resp: Effort & Inspection: normal respiratory effort Auscultation: clear to auscultation bilaterally Cardio: Rate: regular rate Rhythm: regular rhythm Heart sounds: no murmurs GI: Inspection: non-distended Auscultation: normal bowel sounds Skin: General skin exam: normal color Neuro: General: No gait normal Cranial nerves: Yes Normal hearing present Speech: normal speech and Abnormal speech present Extrem: General: normal to inspection Psych: Mental Status: mental status grossly normal Affect: normal affect Objective Data Vital Signs Vital Signs: Vital Signs - 24 hr 03/17/24 14:00 03/17/24 16:00 03/17/24 16:00 Temperature 36.6 C Pulse Rate 68 68 83 Respiratory Rate 24 H Blood Pressure 101/42 L Pulse Oximetry 100 Oxygen Delivery Oxygen Flow Rate 03/17/24 16:00 03/17/24 18:00 03/17/24 20:00 Temperature 36.6 C Pulse Rate 97 90 Respiratory Rate 22 H Blood Pressure 101/40 L Pulse Oximetry 100 99 Oxygen Delivery Nasal Cannula Oxygen Flow Rate 1 03/17/24 20:20 03/17/24 20:06 03/17/24 22:00 Temperature Pulse Rate 90 92 82 Respiratory Rate 22 H Blood Pressure Pulse Oximetry 99 Oxygen Delivery Nasal Cannula Oxygen Flow Rate 1 03/17/24 23:49 03/17/24 23:39 03/18/24 00:00 Temperature 36.6 C Pulse Rate 78 78 71 Respiratory Rate 20 20 Blood Pressure 116/40 L Pulse Oximetry 100 100 Oxygen Delivery Nasal Cannula Oxygen Flow Rate 1 03/18/24 02:00 03/18/24 04:00 03/18/24 04:20 Temperature 36.6 C Pulse Rate 77 72 77 Respiratory Rate 20 20 Blood Pressure 103/42 L Pulse Oximetry 97 Oxygen Delivery Oxygen Flow Rate 03/18/24 04:39 03/18/24 04:30 03/18/24 04:00 Temperature Pulse Rate 76 72 81 Respiratory Rate 18 20 Blood Pressure Pulse Oximetry 97 Oxygen Delivery Room Air Oxygen Flow Rate 03/18/24 06:00 03/18/24 00:05 03/18/24 08:00 Temperature 37.1 C Pulse Rate 83 75 70 Respiratory Rate 16 12 Blood Pressure 122/35 L Pulse Oximetry 98 90 Oxygen Delivery Room Air Oxygen Flow Rate 03/18/24 09:23 03/18/24 12:00 Temperature 37.0 C Pulse Rate 73 Respiratory Rate 20 Blood Pressure 118/32 L 108/36 L Pulse Oximetry 98 Oxygen Delivery Oxygen Flow Rate Intake/Output Intake/Output: Intake & Output 03/15/24 03/16/24 03/17/24 03/18/24 23:59 23:59 23:59 23:59 Intake Total 1101.5 1875.0 677.5 Output Total 1150 430 Balance 1101.5 725.0 247.5 Meds/Results Medications: Active Medications Generic Name Dose Route Start Last Admin Trade Name Freq PRN Reason Stop Dose Admin Acetaminophen 650 mg 03/16/24 17:50 Acetaminophen 325 Mg Tablet PO Q4H PRN Mild Pain (1-3) or Fever Aspirin 81 mg 03/18/24 09:00 03/18/24 08:45 Aspirin 81 Mg Enteric Tablet PO 81 mg QAM OBDULIA Administration Atenolol 25 mg 03/18/24 09:00 03/18/24 08:45 Atenolol 25 Mg Tablet PO 25 mg DAILY OBDULIA Administration Atorvastatin Calcium 20 mg 03/18/24 09:00 03/18/24 08:45 Atorvastatin 20 Mg Tablet PO 20 mg DAILY OBDULIA Administration Celecoxib 200 mg 03/18/24 09:00 03/18/24 08:45 Celecoxib 200 Mg Capsule PO 200 mg DAILY OBDULIA Administration Dextrose 12.5 gm 03/16/24 17:52 Dextrose 50% 25 Gm/50 Ml Syringe IV PUSH PRN PRN Hypoglycemia Protocol Dextrose 12.5 gm 03/17/24 12:08 Dextrose 50% 25 Gm/50 Ml Syringe IV PUSH PRN PRN Hypoglycemia Protocol Enoxaparin Sodium 40 mg 03/17/24 09:00 03/18/24 09:06 Enoxaparin 40 Mg/0.4 Ml Syringe SUB-Q 40 mg DAILY OBDULIA Administration Glucagon 1 mg 03/16/24 17:52 Glucagon For Inj 1 Mg Vial IM PRN PRN Hypoglycemia Protocol Glucagon 1 mg 03/17/24 12:08 Glucagon For Inj 1 Mg Vial IM PRN PRN Hypoglycemia Protocol Glucose 15 gm 03/16/24 17:52 Glucose Oral Gel 15 Gm Of Glucse In 37.5 Gm Tube PO PRN PRN Hypoglycemia Protocol Glucose 15 gm 03/17/24 12:08 Glucose Oral Gel 15 Gm Of Glucse In 37.5 Gm Tube PO PRN PRN Hypoglycemia Protocol Dextrose 1,000 mls @ 100 mls/hr 03/16/24 17:52 Dextrose 5% 1,000 Ml IVPB PRN PRN Hypoglycemia Protocol Levetiracetam 750 mg/ Dextrose 107.5 mls @ 430 mls/hr 03/17/24 06:00 03/18/24 07:15 IVPB Infused Q12H OBDULIA Infusion Ceftriaxone Sodium 1 gm in 50 mls @ 100 mls/hr 03/17/24 18:00 03/17/24 19:18 Rocephin 1 Gm/Ns 50 Ml IVPB Infused Q24H OBDULIA Infusion Azithromycin 500 mg in 250 mls @ 250 mls/hr 03/16/24 21:00 03/17/24 22:00 Zithromax IVPB Infused Q24H OBDULIA Infusion Dextrose 1,000 mls @ 100 mls/hr 03/17/24 12:08 Dextrose 5% 1,000 Ml IVPB PRN PRN Hypoglycemia Protocol Acyclovir Sodium 1,000 mg/ 270 mls @ 250 mls/hr 03/18/24 05:00 03/18/24 06:41 Dextrose IVPB Infused Q12H OBDULIA Infusion Insulin Aspart 2 - 5 units 03/17/24 17:00 03/18/24 12:02 Insulin Aspart (*Bkc) 100 Units/Ml SUB-Q Not Given TIDWM [facility] Protocol Methotrexate 2.5 mg 03/18/24 09:00 Methotrexate 2.5 Mg Tab (*Chemo) PO DAILY [facility] Miscellaneous Information 0 each 03/17/24 00:01 Please Verify Frequency Of Methotrexate, Normally Given Once Weekly XX 04/16/24 00:00 CLARIFY OBDULIA Ondansetron HCl 4 mg 03/16/24 17:50 Ondansetron Inj 4 Mg/2 Ml Vial IV PUSH Q4H PRN Nausea Perflutren Lipid Microsphere 0 ml 03/16/24 20:30 Perflutren Lipid Microspheres 1.5 Ml Vial Diluted To 10 Ml Total Volume IV PUSH 03/19/24 20:30 ONCE PRN adequate visualization Protocol Sodium Chloride 6 ml 03/18/24 05:00 03/18/24 04:20 Sodium Chlor 3% 15 Ml Neb (Respiratory Therapy) INHALATION 03/20/24 05:01 6 ml DAILY@0500 OBDULIA Administration Sodium Chloride 10 ml 03/17/24 22:00 03/18/24 05:28 Saline Lock Flush IV PUSH 10 ml Q8HR OBDULIA Administration Sodium Chloride 10 ml 03/17/24 20:10 Saline Lock Flush IV PUSH PRN PRN Flush Radiology Results: ITS Impressions Head CT 03/16/24 10:24 IMPRESSION: 1. Normal aging brain. Chest CTA 03/16/24 16:42 IMPRESSION: 1. Left lower lobe pneumonia. 2. No pulmonary embolism. 3. Herniation of the stomach into the chest. 4. Prominent pulmonary artery which may indicate pulmonary hypertension. Head/Neck CTA 03/16/24 17:01 IMPRESSION: 1. CTA head and neck. Percent stenosis per NASCET criteria is 0%. 2. Prominent area in the anterior left cavernous sinus which may be an aneurysm. Further evaluation advised. 3. Absent left A1 segment. 4. Posterior communicating arteries continue otherwise posterior cerebral arteries. 5. No definite evidence of occlusion or significant stenosis in the intracerebral arteries although the distal branches of the posterior cerebral arteries are not very clear. Brain MRI 03/17/24 13:38 IMPRESSION: 1. Swelling and signal abnormality involving anteromedial left temporal lobe suspicious for HSV encephalitis. 2. 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 ADDENDUM: 03/17/24 1351 I discussed this result with Edie Stuart. Chest X-Ray 03/18/24 09:51 IMPRESSION: 1. Large hiatal hernia. 2. Mild atelectasis in left lower lung zone. Lumbar Puncture Fluoroscopy 03/18/24 12:35 IMPRESSION: 1. Successful fluoro-guided lumbar puncture. Labs Labs: Laboratory Results - last 24 hr 03/17/24 03/17/24 03/17/24 04:33 13:36 14:10 WBC RBC Hgb Hct MCV MCH MCHC RDW Plt Count MPV Immature Gran % (Auto) Neut % (Auto) Lymph % (Auto) [place] % (Auto) Eos % (Auto) Baso % (Auto) Lymph # (Auto) [place] # (Auto) Eos # (Auto) Baso # (Auto) Abs Immat Gran (auto) Absolute Neuts (auto) Absolute Nucleated RBC Nucleated RBC % Sodium Potassium Chloride Carbon Dioxide Anion Gap BUN Creatinine Estim Creat Clear Calc Estimated GFR Glucose POC Capillary Glucose 105 Calcium Total Bilirubin AST ALT Alkaline Phosphatase Troponin I 0.984 H* Total Protein Albumin Triglycerides 89 Cholesterol 162 LDL Cholesterol Direct 83 HDL Direct 46 CSF Glucose CSF Total Protein 03/17/24 03/17/24 03/18/24 16:35 20:31 05:40 WBC 8.0 RBC 3.15 L Hgb 10.4 L Hct 31.3 L MCV 99.4 MCH 33.0 MCHC 33.2 RDW 14.4 Plt Count 183 MPV 10.0 Immature Gran % (Auto) 0.5 Neut % (Auto) 74.2 H Lymph % (Auto) 14.2 L [place] % (Auto) 9.6 H Eos % (Auto) 1.0 Baso % (Auto) 0.5 Lymph # (Auto) 1.14 [place] # (Auto) 0.8 H Eos # (Auto) 0.1 Baso # (Auto) 0.0 Abs Immat Gran (auto) 0.04 H Absolute Neuts (auto) 6.0 Absolute Nucleated RBC 0.000 Nucleated RBC % 0.0 Sodium 137 Potassium 3.7 Chloride 107 Carbon Dioxide 25 Anion Gap 5 BUN 34 H Creatinine 1.50 H Estim Creat Clear Calc 32 Estimated GFR 33 L Glucose 88 POC Capillary Glucose 144 H 150 H Calcium 8.5 Total Bilirubin 0.6 AST 38 H ALT 13 Alkaline Phosphatase 66 Troponin I Total Protein 5.0 L Albumin 2.9 L Triglycerides Cholesterol LDL Cholesterol Direct HDL Direct CSF Glucose CSF Total Protein 03/18/24 03/18/24 03/18/24 07:38 11:24 12:07 WBC RBC Hgb Hct MCV MCH MCHC RDW Plt Count MPV Immature Gran % (Auto) Neut % (Auto) Lymph % (Auto) [place] % (Auto) Eos % (Auto) Baso % (Auto) Lymph # (Auto) [place] # (Auto) Eos # (Auto) Baso # (Auto) Abs Immat Gran (auto) Absolute Neuts (auto) Absolute Nucleated RBC Nucleated RBC % Sodium Potassium Chloride Carbon Dioxide Anion Gap BUN Creatinine Estim Creat Clear Calc Estimated GFR Glucose POC Capillary Glucose 115 H 130 H Calcium Total Bilirubin AST ALT Alkaline Phosphatase Troponin I Total Protein Albumin Triglycerides Cholesterol LDL Cholesterol Direct HDL Direct CSF Glucose 60 CSF Total Protein 61 H ECHO: 1. Left ventricular chamber dimension is normal. 2. Left ventricular systolic function is hyperdynamic, estimated at >70%. 3. There is mildly increased left ventricular wall thickness. 4. The left ventricular diastolic function is grade I diastolic dysfunction. 5. Left atrial chamber dimension is mildly enlarged. 6. Right atrial chamber dimension is mildly enlarged. 7. Intact interatrial septum visualized by agitated saline imaging. 8. There is mild mitral valve regurgitation. 9. There is mild tricuspid valve regurgitation. 10. Moderate pulmonary hypertension, estimated pulmonary arterial systolic pressure is 58 mmHg.
[2024-03-18 12:43] LABS: Red Blood Cell CSF 9 (0-2)
[2024-03-18 13:40] LABS: Neutrophils CSF 1 % (0-6)
[2024-03-18 13:41] LABS: Lymphocytes CSF 47 % (40-80); Macrophages CSF 2; Monocytes CSF 25 % (15-45); Other Cells CSF 25 %
--- NOTE | 2024-03-18 13:52 | P.PNIM_ITS ---
Progress Note: A&P Assessment and Plan (1) Seizure: Code(s): R56.9 - Unspecified convulsions Status: Acute Assessment and Plan: -- reported seizure activity on arrival requiring intubation for airway protection, initially on propofol for sedation and anticonvulsant. patient woke up while in the ED and was extubated on 2 L nasal cannula as she was also following commands and communicating. * head CT was negative for any acute intracranial findings * head/neck CTA showed 0% stenosis in bilateral carotid bulbs, prominent area in the anterior left cavernous sinus which may be an aneurysm, absent left A1 segment, no definite evidence of occlusion or significant stenosis in the intracerebral arteries although the distal branches of the posterior cerebral arteries were not clear on this examination * urine drug screen was positive for benzodiazepines, ETOH less than 10 * MRI of the brain and brainstem with and without contrast ordered * will also obtain echocardiogram with bubble study * neurology consulted * PT/OT/ speech therapy ordered * NPO except for ice chips for possible swallow study * loading dose of Keppra was given while in the ED * continue Keppra and aspirin * Continue seizure precautions * continue neuro checks * Keep section near by at bedside 03/17/24 * MRI brain showed: Swelling and signal abnormality involving anteromedial left temporal lobe suspicious for HSV encephalitis. 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 * requesting transfer to [facility] 03/18/2024 * LP transfer TBD no need if no rupture can follow-up outpatient (4) Pneumonia: Code(s): J18.9 - Pneumonia, unspecified organism Status: Acute Assessment and Plan: * CTA of the chest revealed left lower lobe pneumonia, herniation of the stomach into the chest, negative for PE, prominent pulmonary artery which may indicate pulmonary hypertension * chest x-ray showing airspace opacities in the left mid and lower lung zones consistent with pneumonia * patient was given Rocephin, vancomycin, and ampicillin while in the ED * MRSA was negative and vancomycin was discontinued * will change antibiotic to Rocephin and azithromycin * White blood cell count 9.6 * blood cultures were obtained and are pending (5) Non-ST elevation CA (NSTEMI): Code(s): I21.4 - Non-ST elevation (NSTEMI) myocardial infarction Status: Acute Assessment and Plan: * troponin 0.361 at 11:02 a.m. today * will repeat troponin now * cardiology consulted * EKG showing sinus tachycardia with a rate of 100 with a QTC of 429 03/17/24: * Troponin trending up 1.110 peaked trending down * Cardiology recommendations appreciated * Echo pending 03/18/24: * Echo no significant wall motion or valvular abnormalities (6) Elevated d-dimer: Code(s): R79.89 - Other specified abnormal findings of blood chemistry Status: Acute Assessment and Plan: * D-dimer 3.21 * CTA of the chest was negative for PE RULED OUT L Plan Code status: DNR/DNI DVT prophylaxis: SCD Stress ulcer prophylaxis: NA PT/OT notes: PT/OT pending Disposition: Patient continues admission to the medical unit for further evaluation and treatment of new onset seizures secondary to suspicious of HSV encephalitis. MRI with incidental finding as showing and 12 mm aneurysm in the left carotid there has been a call out for possible transfer to [facility] no need for transfer at this time awaiting on LP results. Patient will need supervisor intermediates acyclovir IV. Time Spent With Patient Time with patient: 15 - 25 minutes Subjective Date/time seen: 03/18/24 13:52 Interval history: Patient is 78 year old female admitted for new onset seizures with need for airway protection who was intubated then extubated after regaining consciousness. 03/18/2024: Patient with overall improvement after starting IV acyclovir, She denied headache, dizziness, loss of vision and no seizure activity overnight. She is still having some difficulty with constructing sentences. I spoke with Rupal rology (Dr Garcia) neurosurgery and vascular (Dr Quesada) at [facility] about possible need for transfer due to 12mm of the left internal carotid artery they recommended LP which has been ordered for conformation of HSV encephalitis and if there is xanthochromia noted in CSF fluid then a transfer is need for possible ruptured of aneurysm if negative no need for transfer at this time and can follow-up outpatient for evaluation of surgical intervention for aneurysm. Review of Systems Review of Systems: All systems reviewed & are unremarkable except as noted in HPI and below Exam Narrative: * GENERAL: Plseant Alert and oriented x 2 but with mild confusion difficulty constructing sentences * EYES: PERRLA. * HEENT: Moist mucous membranes. * LUNGS: Clear to auscultation bilaterally. No accessory muscle use. * CARDIOVASCULAR: Regular rate and rhythm. No murmur. No JVD. S1-S2 * ABDOMEN: Soft, non tenderness and non-distended. No palpable masses. * EXTREMITIES: No edema. Non-tender * SKIN: No rashes or lesions. Skin warm, dry. * NEUROLOGIC: No focal neurological deficits. CN II-XII grossly intact * PSYCHIATRIC: tearful mood and affect. Objective Data Vital Signs Vital Signs: Vital Signs - 24 hr 03/17/24 14:00 03/17/24 16:00 03/17/24 16:00 Temperature 97.8 F Pulse Rate 68 68 83 Respiratory Rate 24 H Blood Pressure 101/42 L Pulse Oximetry 100 Oxygen Delivery Oxygen Flow Rate 03/17/24 16:00 03/17/24 18:00 03/17/24 20:00 Temperature 98 F Pulse Rate 97 90 Respiratory Rate 22 H Blood Pressure 101/40 L Pulse Oximetry 100 99 Oxygen Delivery Nasal Cannula Oxygen Flow Rate 1 03/17/24 20:20 03/17/24 20:06 03/17/24 22:00 Temperature Pulse Rate 90 92 82 Respiratory Rate 22 H Blood Pressure Pulse Oximetry 99 Oxygen Delivery Nasal Cannula Oxygen Flow Rate 1 03/17/24 23:49 03/17/24 23:39 03/18/24 00:00 Temperature 98 F Pulse Rate 78 78 71 Respiratory Rate 20 20 Blood Pressure 116/40 L Pulse Oximetry 100 100 Oxygen Delivery Nasal Cannula Oxygen Flow Rate 1 03/18/24 02:00 03/18/24 04:00 03/18/24 04:20 Temperature 98 F Pulse Rate 77 72 77 Respiratory Rate 20 20 Blood Pressure 103/42 L Pulse Oximetry 97 Oxygen Delivery Oxygen Flow Rate 03/18/24 04:39 03/18/24 04:30 03/18/24 04:00 Temperature Pulse Rate 76 72 81 Respiratory Rate 18 20 Blood Pressure Pulse Oximetry 97 Oxygen Delivery Room Air Oxygen Flow Rate 03/18/24 06:00 03/18/24 00:05 03/18/24 08:00 Temperature 98.8 F Pulse Rate 83 75 70 Respiratory Rate 16 12 Blood Pressure 122/35 L Pulse Oximetry 98 90 Oxygen Delivery Room Air Oxygen Flow Rate 03/18/24 09:23 03/18/24 12:00 03/18/24 08:00 Temperature 98.6 F Pulse Rate 73 78 Respiratory Rate 20 Blood Pressure 118/32 L 108/36 L Pulse Oximetry 98 Oxygen Delivery Oxygen Flow Rate 03/18/24 10:00 03/18/24 12:00 Temperature Pulse Rate 72 79 Respiratory Rate Blood Pressure Pulse Oximetry Oxygen Delivery Oxygen Flow Rate Intake/Output Intake/Output: Intake & Output 03/15/24 03/16/24 03/17/24 03/18/24 23:59 23:59 23:59 23:59 Intake Total 1101.5 1875.0 677.5 Output Total 1150 430 Balance 1101.5 725.0 247.5 Meds/Results Medications: Active Medications Generic Name Dose Route Start Last Admin Trade Name Freq PRN Reason Stop Dose Admin Acetaminophen 650 mg 03/16/24 17:50 Acetaminophen 325 Mg Tablet PO Q4H PRN Mild Pain (1-3) or Fever Aspirin 81 mg 03/18/24 09:00 03/18/24 08:45 Aspirin 81 Mg Enteric Tablet PO 81 mg QAM OBDULIA Administration Atenolol 25 mg 03/18/24 09:00 03/18/24 08:45 Atenolol 25 Mg Tablet PO 25 mg DAILY OBDULIA Administration Atorvastatin Calcium 20 mg 03/18/24 09:00 03/18/24 08:45 Atorvastatin 20 Mg Tablet PO 20 mg DAILY OBDULIA Administration Celecoxib 200 mg 03/18/24 09:00 03/18/24 08:45 Celecoxib 200 Mg Capsule PO 200 mg DAILY OBDULIA Administration Dextrose 12.5 gm 03/16/24 17:52 Dextrose 50% 25 Gm/50 Ml Syringe IV PUSH PRN PRN Hypoglycemia Protocol Dextrose 12.5 gm 03/17/24 12:08 Dextrose 50% 25 Gm/50 Ml Syringe IV PUSH PRN PRN Hypoglycemia Protocol Enoxaparin Sodium 40 mg 03/17/24 09:00 03/18/24 09:06 Enoxaparin 40 Mg/0.4 Ml Syringe SUB-Q 40 mg DAILY OBDULIA Administration Glucagon 1 mg 03/16/24 17:52 Glucagon For Inj 1 Mg Vial IM PRN PRN Hypoglycemia Protocol Glucagon 1 mg 03/17/24 12:08 Glucagon For Inj 1 Mg Vial IM PRN PRN Hypoglycemia Protocol Glucose 15 gm 03/16/24 17:52 Glucose Oral Gel 15 Gm Of Glucse In 37.5 Gm Tube PO PRN PRN Hypoglycemia Protocol Glucose 15 gm 03/17/24 12:08 Glucose Oral Gel 15 Gm Of Glucse In 37.5 Gm Tube PO PRN PRN Hypoglycemia Protocol Dextrose 1,000 mls @ 100 mls/hr 03/16/24 17:52 Dextrose 5% 1,000 Ml IVPB PRN PRN Hypoglycemia Protocol Levetiracetam 750 mg/ Dextrose 107.5 mls @ 430 mls/hr 03/17/24 06:00 03/18/24 07:15 IVPB Infused Q12H OBDULIA Infusion Ceftriaxone Sodium 1 gm in 50 mls @ 100 mls/hr 03/17/24 18:00 03/17/24 19:18 Rocephin 1 Gm/Ns 50 Ml IVPB Infused Q24H OBDULIA Infusion Azithromycin 500 mg in 250 mls @ 250 mls/hr 03/16/24 21:00 03/17/24 22:00 Zithromax IVPB Infused Q24H OBDULIA Infusion Dextrose 1,000 mls @ 100 mls/hr 03/17/24 12:08 Dextrose 5% 1,000 Ml IVPB PRN PRN Hypoglycemia Protocol Acyclovir Sodium 1,000 mg/ 270 mls @ 250 mls/hr 03/18/24 05:00 03/18/24 06:41 Dextrose IVPB Infused Q12H OBDULIA Infusion Insulin Aspart 2 - 5 units 03/17/24 17:00 03/18/24 12:02 Insulin Aspart (*Bkc) 100 Units/Ml SUB-Q Not Given TIDWM OBDULIA Protocol Methotrexate 2.5 mg 03/18/24 09:00 Methotrexate 2.5 Mg Tab (*Chemo) PO DAILY [facility] Miscellaneous Information 0 each 03/17/24 00:01 Please Verify Frequency Of Methotrexate, Normally Given Once Weekly XX 04/16/24 00:00 CLARIFY OBDULIA Ondansetron HCl 4 mg 03/16/24 17:50 Ondansetron Inj 4 Mg/2 Ml Vial IV PUSH Q4H PRN Nausea Perflutren Lipid Microsphere 0 ml 03/16/24 20:30 Perflutren Lipid Microspheres 1.5 Ml Vial Diluted To 10 Ml Total Volume IV PU SH 03/19/24 20:30 ONCE PRN adequate visualization Protocol Sodium Chloride 6 ml 03/18/24 05:00 03/18/24 04:20 Sodium Chlor 3% 15 Ml Neb (Respiratory Therapy) INHALATION 03/20/24 05:01 6 ml DAILY@0500 OBDULIA Administration Sodium Chloride 10 ml 03/17/24 22:00 03/18/24 05:28 Saline Lock Flush IV PUSH 10 ml Q8HR OBDULIA Administration Sodium Chloride 10 ml 03/17/24 20:10 Saline Lock Flush IV PUSH PRN PRN Flush Radiology Results: ITS Impressions Head CT 03/16/24 10:24 IMPRESSION: 1. Normal aging brain. Chest CTA 03/16/24 16:42 IMPRESSION: 1. Left lower lobe pneumonia. 2. No pulmonary embolism. 3. Herniation of the stomach into the chest. 4. Prominent pulmonary artery which may indicate pulmonary hypertension. Head/Neck CTA 03/16/24 17:01 IMPRESSION: 1. CTA head and neck. Percent stenosis per NASCET criteria is 0%. 2. Prominent area in the anterior left cavernous sinus which may be an aneurysm. Further evaluation advised. 3. Absent left A1 segment. 4. Posterior communicating arteries continue otherwise posterior cerebral arteries. 5. No definite evidence of occlusion or significant stenosis in the intracerebral arteries although the distal branches of the posterior cerebral arteries are not very clear. Brain MRI 03/17/24 13:38 IMPRESSION: 1. Swelling and signal abnormality involving anteromedial left temporal lobe suspicious for HSV encephalitis. 2. 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 ADDENDUM: 03/17/24 1351 I discussed this result with Edie Stuart. Chest X-Ray 03/18/24 09:51 IMPRESSION: 1. Large hiatal hernia. 2. Mild atelectasis in left lower lung zone. Lumbar Puncture Fluoroscopy 03/18/24 12:35 IMPRESSION: 1. Successful fluoro-guided lumbar puncture. Labs Labs: Laboratory Results - last 24 hr 03/17/24 03/17/24 03/17/24 14:10 16:35 20:31 WBC RBC Hgb Hct MCV MCH MCHC RDW Plt Count MPV Immature Gran % (Auto) Neut % (Auto) Lymph % (Auto) Delta % (Auto) Eos % (Auto) Baso % (Auto) Lymph # (Auto) Delta # (Auto) Eos # (Auto) Baso # (Auto) Abs Immat Gran (auto) Absolute Neuts (auto) Absolute Nucleated RBC Nucleated RBC % Sodium Potassium Chloride Carbon Dioxide Anion Gap BUN Creatinine Estim Creat Clear Calc Estimated GFR Glucose POC Capillary Glucose 144 H 150 H Calcium Total Bilirubin AST ALT Alkaline Phosphatase Troponin I 0.984 H* Total Protein Albumin CSF Source CSF Appearance CSF Color CSF RBC CSF Tot Nucleated Cells CSF Neutrophils CSF Lymphocytes CSF Monocytes CSF Macrophages CSF Other Cells CSF Glucose CSF Total Protein 03/18/24 03/18/24 03/18/24 05:40 07:38 11:24 WBC 8.0 RBC 3.15 L Hgb 10.4 L Hct 31.3 L MCV 99.4 MCH 33.0 MCHC 33.2 RDW 14.4 Plt Count 183 MPV 10.0 Immature Gran % (Auto) 0.5 Neut % (Auto) 74.2 H Lymph % (Auto) 14.2 L Delta % (Auto) 9.6 H Eos % (Auto) 1.0 Baso % (Auto) 0.5 Lymph # (Auto) 1.14 Delta # (Auto) 0.8 H Eos # (Auto) 0.1 Baso # (Auto) 0.0 Abs Immat Gran (auto) 0.04 H Absolute Neuts (auto) 6.0 Absolute Nucleated RBC 0.000 Nucleated RBC % 0.0 Sodium 137 Potassium 3.7 Chloride 107 Carbon Dioxide 25 Anion Gap 5 BUN 34 H Creatinine 1.50 H Estim Creat Clear Calc 32 Estimated GFR 33 L Glucose 88 POC Capillary Glucose 115 H 130 H Calcium 8.5 Total Bilirubin 0.6 AST 38 H ALT 13 Alkaline Phosphatase 66 Troponin I Total Protein 5.0 L Albumin 2.9 L CSF Source CSF Appearance CSF Color CSF RBC CSF Tot Nucleated Cells CSF Neutrophils CSF Lymphocytes CSF Monocytes CSF Macrophages CSF Other Cells CSF Glucose CSF Total Protein 03/18/24 03/18/24 12:07 12:13 WBC RBC Hgb Hct MCV MCH MCHC RDW Plt Count MPV Immature Gran % (Auto) Neut % (Auto) Lymph % (Auto) Delta % (Auto) Eos % (Auto) Baso % (Auto) Lymph # (Auto) Delta # (Auto) Eos # (Auto) Baso # (Auto) Abs Immat Gran (auto) Absolute Neuts (auto) Absolute Nucleated RBC Nucleated RBC % Sodium Potassium Chloride Carbon Dioxide Anion Gap BUN Creatinine Estim Creat Clear Calc Estimated GFR Glucose POC Capillary Glucose Calcium Total Bilirubin AST ALT Alkaline Phosphatase Troponin I Total Protein Albumin CSF Source Csf CSF Appearance Clear CSF Color Colorless CSF RBC 9 H CSF Tot Nucleated Cells 1 CSF Neutrophils 1 CSF Lymphocytes 47 CSF Monocytes 25 CSF Macrophages 2 CSF Other Cells 25 CSF Glucose 60 CSF Total Protein 61 H Quality VTE Prophylaxis VTE prophylaxis: pharmacologic ordered -Patient's previous records reviewed on admission -ER notes reviewed in detail on admission -discussed all findings and current treatment plan with patient/Family/POA -Consultations reviewed for recommendations -Patient's disposition for safe discharge discussed with cyanide case hardener Dictation performed by [employer] direct speech recognition software, therefore social worker aide variants and typographical errors may occur. Hospitalist MIPS Advance Care Plan I have confirmed that the patient's Advanced Care Plan is present, code status is documented, or surrogate decision maker is listed in patient medical record.: Yes Medication Reconciliation I have utilized all available resources to obtain, update and review the patients current medications (includes all prescriptions, OTC, herbals, cannabis, and nutritional supplements).: Yes The patient is not eligible for med reconciliation; the patient is in a emergent medical situation where delaying treatment would jeopardize the patients health.: No
--- NOTE | 2024-03-18 13:54 | PCOTNOTE ---
Per RN, pt is not appropriate for therapy treatment at this time due to having recent procedure that is requiring her to stay laying supine for at least 30 minutes.
[2024-03-18 16:02] LABS: Glucose Point of Care 154 mg/dl (65-105)
[2024-03-18] MEDS: AZITHROMYCIN 500 MG/NS 250 ML 500 MG/250 ML BAG 250 MG IVPB (20:17)
[2024-03-18 20:40] LABS: Glucose Point of Care 148 mg/dl (65-105)
[2024-03-19] VITALS (10 sets, daily range): BP systolic 97–136; BP diastolic 39–60; PULSE 66–80; RESP 13–24; TEMP 36.6–37.5; O2SAT 94–100
--- NOTE | 2024-03-19 02:39 | PCDIET ---
Pat Qiu RN took over care of this patient at 1900 on 03/18/24
[2024-03-19] MEDS: ACYCLOVIR SODIUM IVPB 1,000 MG in DEXTROSE 5% IN WATER 250 ML 250 MG IVPB ×2 (05:07→19:26)
[2024-03-19] MEDS: SODIUM CHLOR 3% 15 ML NEB (RESPIRATORY THERAPY) 6 ML INHALATION (05:37)
--- NOTE | 2024-03-19 05:44 | PCRCNOTE ---
Pt was able to produce sputum sample.
[2024-03-19] MEDS: levETIRAcetam IV 750 MG in DEXTROSE 5% 100 ML 430 MG IVPB ×2 (06:23→19:23)
[2024-03-19 06:53] LABS: Basophils Percent Auto 0.6 % (0.2-1.2); Eosinophils Absolute Auto 0.2 K/mm3 (0-0.3); Eosinophils Percent Auto 2.8 % (0-4.4); Hematocrit 31.9 % (37.0-47.0); Hemoglobin 10.6 g/dL (12.0-15.0); Immature Granulocyte Absolute 0.03 K/mm3 (0.00-0.031); Immature Granulocyte Percent A 0.4 % (0-0.5); Lymphocytes Absolute Auto 1.32 K/mm3 (0.9-3.2); Lymphocytes Percent Auto 19.7 % (18.3-44.2); Mean Corpuscular HGB Conc 33.2 g/dl (32-36); Mean Corpuscular Hemoglobin 32.4 pg (26-34); Mean Corpuscular Volume 97.6 fl (80-100); Monocytes Absolute Auto 0.6 K/mm3 (0.1-0.6); Monocytes Percent Auto 9.6 % (2.6-8.5); Neutrophils Absolute Auto 4.5 K/mm3 (1.3-6.7); Neutrophils Percent Auto 66.9 % (45.5-73.1); Platelet Count Result 189 k/mm3 (150-375); Red Blood Count 3.27 M/mm3 (4.2-5.4); White Blood Count 6.7 K/mm3 (4.5-10.0)
[2024-03-19 07:06] LABS: Alanine Aminotransferase 16 U/L (6-35); Albumin Level 2.8 g/dL (3.5-5.1); Alkaline Phosphatase 58 U/L (38-126); Anion Gap 5 mmol/L (4-12); Aspartate Amino Transferase 39 U/L (14-36); Bilirubin,Total 0.6 mg/dL (0.2-1.3); Blood Urea Nitrogen 33 mg/dL (7-17); Calcium 8.4 mg/dL (8.4-10.2); Carbon Dioxide 23 mmol/L (22-30); Chloride 105 mmol/L (98-107); Estimated CRCL calculation 36 ml/min; Estimated Glomerular Filt Rate 39; Glucose 121 mg/dL (65-110); Potassium 3.6 mmol/L (3.4-5.0); Sodium 133 mmol/L (137-145)
[2024-03-19] MEDS: atenoloL 25 MG TABLET PO (07:46)
[2024-03-19] MEDS: ASPIRIN 81 MG ENTERIC TABLET PO (07:46)
[2024-03-19] MEDS: SALINE LOCK FLUSH 10 ML IV PUSH ×3 (07:46→20:32)
[2024-03-19 07:47] LABS: Glucose Point of Care 104 mg/dl (65-105)
[2024-03-19] MEDS: CELECOXIB 200 MG CAPSULE PO (07:47)
[2024-03-19] MEDS: ATORVASTATIN 20 MG TABLET PO (07:47)
[2024-03-19] MEDS: ENOXAPARIN 40 MG/0.4 ML SYRINGE SUB-Q (07:47)
--- NOTE | 2024-03-19 10:26 | P.CONIM_ITS ---
Assessment and Plan Assessment and plan (1) Seizure: Code(s): R56.9 - Unspecified convulsions Status: Acute (2) Altered mental state: Code(s): R41.82 - Altered mental status, unspecified Status: Acute (3) Non-ST elevation OR (NSTEMI): Code(s): I21.4 - Non-ST elevation (NSTEMI) myocardial infarction Status: Acute (4) Pneumonia: Code(s): J18.9 - Pneumonia, unspecified organism Status: Acute Plan (1) Seizure: Code(s): R56.9 - Unspecified convulsions Status: Acute Assessment and Plan: -- reported seizure activity on arrival requiring intubation for airway protection, initially on propofol for sedation and anticonvulsant. patient woke up while in the ED and was extubated on 2 L nasal cannula as she was also following commands and communicating. * head CT was negative for any acute intracranial findings * head/neck CTA showed 0% stenosis in bilateral carotid bulbs, prominent area in the anterior left cavernous sinus which may be an aneurysm, absent left A1 segment, no definite evidence of occlusion or significant stenosis in the intracerebral arteries although the distal branches of the posterior cerebral arteries were not clear on this examination * urine drug screen was positive for benzodiazepines, ETOH less than 10 * MRI of the brain and brainstem with and without contrast ordered * will also obtain echocardiogram with bubble study * neurology consulted * PT/OT/ speech therapy ordered * NPO except for ice chips for possible swallow study * loading dose of Keppra was given while in the ED * continue Keppra and aspirin * Continue seizure precautions * continue neuro checks * Keep section near by at gksdbux92/26/24 * MRI brain showed: Swelling and signal abnormality involving anteromedial left temporal lobe suspicious for HSV encephalitis.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 * requesting transfer to [facility]03/18/2024 * LP transfer TBD no need if no rupture can follow-up outpatient (4) Pneumonia: Code(s): J18.9 - Pneumonia, unspecified organism Status: Acute Assessment and Plan: * CTA of the chest revealed left lower lobe pneumonia, herniation of the stomach into the chest, negative for PE, prominent pulmonary artery which may indicate pulmonary hypertension * chest x-ray showing airspace opacities in the left mid and lower lung zones consistent with pneumonia * patient was given Rocephin, vancomycin, and ampicillin while in the ED * MRSA was negative and vancomycin was discontinued * will change antibiotic to Rocephin and azithromycin * White blood cell count 9.6 * blood cultures were obtained and are pending (5) Non-ST elevation OR (NSTEMI): Code(s): I21.4 - Non-ST elevation (NSTEMI) myocardial infarction Status: Acute Assessment and Plan: * troponin 0.361 at 11:02 a.m. today * will repeat troponin now * cardiology consulted * EKG showing sinus tachycardia with a rate of 100 with a QTC of : * Troponin trending up 1.110 peaked trending down * Cardiology recommendations appreciated * Echo [id number]/27/24: * Echo no significant wall motion or valvular abnormalities (6) Elevated d-dimer: Code(s): R79.89 - Other specified abnormal findings of blood chemistry Status: Acute Assessment and Plan: * D-dimer 3.21 * CTA of the chest was negative for PE RULED OUT Plan Code status: DNR/DNI DVT prophylaxis: SCD Stress ulcer prophylaxis: MIGUEL ANGEL PT/OT notes: PT/OT pending Disposition: Patient continues admission to the medical unit for further evaluation and treatment of new onset seizures secondary to suspicious of HSV encephalitis. MRI with incidental finding as showing and 12 mm aneurysm in the left carotid there has been a call out for possible transfer to [facility] no need for transfer at this time awaiting on LP results. Patient will need nursing home acyclovir IV. HPI Date of Consult Consult date: 03/19/24 Requesting Physician: Edie Stuart APRN Primary Care Provider: Telma John, Consult Narrative Narrative: Colette Espino is a 78 year old female [facility] Past Medical History Medical History Arthritis Former smoker Gout Hypertension Rheumatoid arthritis Vitamin D deficiency Surgical History Surgical History H/O foot surgery History of back surgery Family History Family History Mother Dementia Father Bone cancer Sibling Myocardial infarct Social History Social History Social History: Has a son who lives in [place] Smoking packs per day: 0.5 Smoking cigarettes per day: 10.0 Years smoked: 10 Smoking pack-years: 5.00 Smoking status: Former smoker Tobacco type: cigarettes Alcohol intake: never Substance use: never Do You Feel Safe in your Home?: Yes Lack of Transportation: YES Lack of Food: Never True Current Housing: I Have Housing Concerned About Future Housing: No Difficulty Paying Gas/Electric Bills: No Difficulty Paying for Meds: No Currently Unemployed: No Education: High School Diploma/GED Difficulty w/ Childcare or Family Care: No Living arrangements: with family Additional living arrangements comments: , 63 years Spiritual care concerns: No Meds Home Medications and Allergies Home Medications Medication Instructions Recorded Confirmed Type allopurinol 100 mg tablet 100 mg PO DAILY 03/16/24 03/16/24 History atenolol 25 mg tablet 25 mg PO DAILY 03/16/24 03/16/24 History mifxxyc-wzknmomlh-pvkb tablet 1 tablet PO DAILY 03/16/24 03/16/24 History celecoxib 200 mg capsule (Celebrex) 200 mg PO DAILY 03/16/24 03/16/24 History coQ10 (ubiquinol) 200 mg capsule 200 mg PO DAILY 03/16/24 03/16/24 History empagliflozin 10 mg tablet 10 mg PO DAILY 03/16/24 03/16/24 History (Jardiance) lisinopril 40 mg tablet 40 mg PO DAILY 03/16/24 03/16/24 History methotrexate sodium 2.5 mg tablet 2.5 mg PO DAILY 03/16/24 03/16/24 History mv-min-iron 4.5 mg-folic ac 120 1 tablet PO DAILY 03/16/24 03/16/24 History mcg-vit K1 60 mcg-herbal no.352 tablet (Alive Women's Multivitamin) triamterene 75 1 tablet PO DAILY 03/16/24 03/16/24 History mg-hydrochlorothiazide 50 mg tablet esomeprazole magnesium 40 mg 40 mg PO DAILY 03/17/24 03/17/24 History capsule,delayed release Allergies Allergy/AdvReac Type Severity Reaction Status Date / Time No Known Allergies Allergy Verified 03/16/24 09:53 Vital Signs Vital Signs - 24 hr 03/18/24 12:00 03/18/24 12:00 03/18/24 14:00 Temperature 98.6 F Pulse Rate 73 79 80 Respiratory Rate 20 Blood Pressure 108/36 L Pulse Oximetry 98 Oxygen Delivery Fraction of Inspired Oxygen 03/18/24 16:00 03/18/24 16:00 03/18/24 17:56 Temperature 98.5 F Pulse Rate 81 80 87 Respiratory Rate 16 Blood Pressure 94/40 L Pulse Oximetry 96 Oxygen Delivery Fraction of Inspired Oxygen 03/18/24 19:47 03/18/24 19:48 03/18/24 20:00 Temperature 98.5 F Pulse Rate 77 77 75 Respiratory Rate 24 H 24 H Blood Pressure 110/48 L Pulse Oximetry 97 97 Oxygen Delivery Room Air Fraction of Inspired Oxygen 70 03/19/24 00:00 03/19/24 00:00 03/18/24 22:00 Temperature 99 F Pulse Rate 75 80 72 Respiratory Rate 24 H 20 Blood Pressure 121/39 L Pulse Oximetry 97 96 Oxygen Delivery Room Air Fraction of Inspired Oxygen 03/19/24 00:00 03/19/24 02:00 03/19/24 04:00 Temperature Pulse Rate 79 71 Respiratory Rate Blood Pressure Pulse Oximetry Oxygen Delivery Room Air Fraction of Inspired Oxygen 03/19/24 04:00 03/19/24 04:00 03/19/24 06:00 Temperature 99.5 F Pulse Rate 76 75 70 Respiratory Rate 20 Blood Pressure 105/60 Pulse Oximetry 96 Oxygen Delivery Fraction of Inspired Oxygen 03/19/24 07:50 03/19/24 08:00 03/19/24 08:00 Temperature 98.5 F Pulse Rate 66 73 Respiratory Rate 20 Blood Pressure 104/51 L Pulse Oximetry 98 Oxygen Delivery Room Air Fraction of Inspired Oxygen 03/19/24 10:00 Temperature Pulse Rate 72 Respiratory Rate Blood Pressure Pulse Oximetry Oxygen Delivery Fraction of Inspired Oxygen Results Labs 03/19/24 06:33 03/19/24 06:33 Labs: Short CBC 03/19/24 Range/Units 06:33 WBC 6.7 (4.5-10.0) K/mm3 Hgb 10.6 L (12.0-15.0) g/dL Hct 31.9 L (37.0-47.0) % Plt Count 189 (150-375) k/mm3 BMP 03/19/24 06:33 Sodium 133 L Potassium 3.6 Chloride 105 Carbon Dioxide 23 BUN 33 H Creatinine 1.30 H Glucose 121 H Calcium 8.4 Liver Function 03/19/24 Range/Units 06:33 Total Bilirubin 0.6 (0.2-1.3) mg/dL AST 39 H (14-36) U/L ALT 16 (6-35) U/L Alkaline Phosphatase 58 (38-126) U/L Albumin 2.8 L (3.5-5.1) g/dL
--- NOTE | 2024-03-19 10:33 | P.PNIM_ITS ---
Progress Note: A&P Assessment and Plan (1) Encephalitis due to human herpes simplex virus (HSV): Code(s): B00.4 - Herpesviral encephalitis Status: Acute (2) Dementia: Code(s): F03.90 - Unspecified dementia, unspecified severity, without behavioral disturbance, psychotic disturbance, mood disturbance, and anxiety Status: Acute (3) Hypertension: Code(s): I10 - Essential (primary) hypertension Status: Acute (4) Altered mental state: Code(s): R41.82 - Altered mental status, unspecified Status: Acute (5) Seizure: Code(s): R56.9 - Unspecified convulsions Status: Acute (6) Pneumonia: Code(s): J18.9 - Pneumonia, unspecified organism Status: Acute Plan (1) Seizure: Code(s): R56.9 - Unspecified convulsions Status: Acute Assessment and Plan: -- reported seizure activity on arrival requiring intubation for airway protection, initially on propofol for sedation and anticonvulsant. patient woke up while in the ED and was extubated on 2 L nasal cannula as she was also following commands and communicating. * head CT was negative for any acute intracranial findings * head/neck CTA showed 0% stenosis in bilateral carotid bulbs, prominent area in the anterior left cavernous sinus which may be an aneurysm, absent left A1 segment, no definite evidence of occlusion or significant stenosis in the intracerebral arteries although the distal branches of the posterior cerebral arteries were not clear on this examination * urine drug screen was positive for benzodiazepines, ETOH less than 10 * MRI of the brain and brainstem with and without contrast ordered * will also obtain echocardiogram with bubble study * neurology consulted * PT/OT/ speech therapy ordered * NPO except for ice chips for possible swallow study * loading dose of Keppra was given while in the ED * continue Keppra and aspirin * Continue seizure precautions * continue neuro checks * Keep section near by at vclxqaz77/26/24 * MRI brain showed: Swelling and signal abnormality involving anteromedial left temporal lobe suspicious for HSV encephalitis.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 * requesting transfer to [facility] /27/2024 * LP transfer TBD no need if no rupture can follow-up outpatient (4) Pneumonia: Code(s): J18.9 - Pneumonia, unspecified organism Status: Acute Assessment and Plan: * CTA of the chest revealed left lower lobe pneumonia, herniation of the stomach into the chest, negative for PE, prominent pulmonary artery which may indicate pulmonary hypertension * chest x-ray showing airspace opacities in the left mid and lower lung zones consistent with pneumonia * patient was given Rocephin, vancomycin, and ampicillin while in the ED * MRSA was negative and vancomycin was discontinued pt is on antibiotic to Rocephin and azithromycin Patient denies cough, shortness breath, no O2 discharged on room air (5) Non-ST elevation NV (NSTEMI): Code(s): I21.4 - Non-ST elevation (NSTEMI) myocardial infarction Status: Acute Assessment and Plan: Elevated troponin upon arrival, EKG showing sinus tachycardia with a rate of 100 with a QTC of : Echo no significant wall motion or valvular abnormalities Possible demand ischemia (6) Elevated d-dimer: Code(s): R79.89 - Other specified abnormal findings of blood chemistry Status: Acute Assessment and Plan: * D-dimer 3.21 * CTA of the chest was negative for PE RULED OUT Plan Code status: DNR/DNI DVT prophylaxis: SCD Stress ulcer prophylaxis: NA PT/OT notes: PT/OT pending Disposition: Patient continues admission to the medical unit for further evaluation and treatment of new onset seizures secondary to suspicious of HSV encephalitis. MRI with incidental finding as showing and 12 mm aneurysm in the left carotid there has been a call out for possible transfer to [facility] no need for transfer at this time awaiting on LP results. Patient will need group home acyclovir IV. Subjective Date/time seen: 03/19/24 10:33 Interval history: I saw examined patient today in presents of patient's family. Patient is afebrile, blood pressure stable, no O2 desaturation on room air, labs reviewed. Patient denies headache, focal weakness, vision change, lightheadedness, abdomen pain, nausea vomiting diarrhea dysuria. Labs reviewed. Exam Narrative: GENERAL: Pleasant, in no acute distress. Well-nourished. - EYES: EOMI. Anicteric. - HENT: Moist mucous membranes. - LUNGS: Clear to auscultation bilateral ly, no wheezing, rhonchi, or rales. - CARDIOVASCULAR: Regular rate and rhyth m. No murmur. No JVD. - ABDOMEN: Soft, non-tender and non-dist ended. No palpable masses. - EXTREMITIES: No edema. Peripheral puls es 2+. Non-tender. - NEUROLOGIC: No focal neurological defi cits. CN II-XII grossly intact. - PSYCHIATRIC: Awake, Alert and oriented x 3. Appropriate mood and affect. - SKIN: No rashes or lesions. Warm. - LYMPH: No cervical lymphadenopathy. Objective Data Vital Signs Vital Signs: Vital Signs - 24 hr 03/18/24 12:00 03/18/24 12:00 03/18/24 14:00 Temperature 98.6 F Pulse Rate 73 79 80 Respiratory Rate 20 Blood Pressure 108/36 L Pulse Oximetry 98 Oxygen Delivery Fraction of Inspired Oxygen 03/18/24 16:00 03/18/24 16:00 03/18/24 17:56 Temperature 98.5 F Pulse Rate 81 80 87 Respiratory Rate 16 Blood Pressure 94/40 L Pulse Oximetry 96 Oxygen Delivery Fraction of Inspired Oxygen 03/18/24 19:47 03/18/24 19:48 03/18/24 20:00 Temperature 98.5 F Pulse Rate 77 77 75 Respiratory Rate 24 H 24 H Blood Pressure 110/48 L Pulse Oximetry 97 97 Oxygen Delivery Room Air Fraction of Inspired Oxygen 70 03/19/24 00:00 03/19/24 00:00 03/18/24 22:00 Temperature 99 F Pulse Rate 75 80 72 Respiratory Rate 24 H 20 Blood Pressure 121/39 L Pulse Oximetry 97 96 Oxygen Delivery Room Air Fraction of Inspired Oxygen 03/19/24 00:00 03/19/24 02:00 03/19/24 04:00 Temperature Pulse Rate 79 71 Respiratory Rate Blood Pressure Pulse Oximetry Oxygen Delivery Room Air Fraction of Inspired Oxygen 03/19/24 04:00 03/19/24 04:00 03/19/24 06:00 Temperature 99.5 F Pulse Rate 76 75 70 Respiratory Rate 20 Blood Pressure 105/60 Pulse Oximetry 96 Oxygen Delivery Fraction of Inspired Oxygen 03/19/24 07:50 03/19/24 08:00 03/19/24 08:00 Temperature 98.5 F Pulse Rate 66 73 Respiratory Rate 20 Blood Pressure 104/51 L Pulse Oximetry 98 Oxygen Delivery Room Air Fraction of Inspired Oxygen 03/19/24 10:00 Temperature Pulse Rate 72 Respiratory Rate Blood Pressure Pulse Oximetry Oxygen Delivery Fraction of Inspired Oxygen Intake/Output Intake/Output: Intake & Output 03/16/24 03/17/24 03/18/24 03/19/24 23:59 23:59 23:59 23:59 Intake Total 1101.5 1875.0 1505.0 1177.5 Output Total 1150 430 Balance 1101.5 725.0 1075.0 1177.5 Meds/Results Medications: Active Medications Generic Name Dose Route Start Last Admin Trade Name Freq PRN Reason Stop Dose Admin Acetaminophen 650 mg 03/16/24 17:50 Acetaminophen 325 Mg Tablet PO Q4H PRN Mild Pain (1-3) or Fever Aspirin 81 mg 03/18/24 09:00 03/19/24 07:46 Aspirin 81 Mg Enteric Tablet PO 81 mg QAM OBDULIA Administration Atenolol 25 mg 03/18/24 09:00 03/19/24 07:46 Atenolol 25 Mg Tablet PO 25 mg DAILY OBDULIA Administration Atorvastatin Calcium 20 mg 03/18/24 09:00 03/19/24 07:47 Atorvastatin 20 Mg Tablet PO 20 mg DAILY OBDULIA Administration Celecoxib 200 mg 03/18/24 09:00 03/19/24 07:47 Celecoxib 200 Mg Capsule PO 200 mg DAILY OBDULIA Administration Dextrose 12.5 gm 03/16/24 17:52 Dextrose 50% 25 Gm/50 Ml Syringe IV PUSH PRN PRN Hypoglycemia Protocol Dextrose 12.5 gm 03/17/24 12:08 Dextrose 50% 25 Gm/50 Ml Syringe IV PUSH PRN PRN Hypoglycemia Protocol Enoxaparin Sodium 40 mg 03/17/24 09:00 03/19/24 07:47 Enoxaparin 40 Mg/0.4 Ml Syringe SUB-Q 40 mg DAILY OBDULIA Administration Glucagon 1 mg 03/16/24 17:52 Glucagon For Inj 1 Mg Vial IM PRN PRN Hypoglycemia Protocol Glucagon 1 mg 03/17/24 12:08 Glucagon For Inj 1 Mg Vial IM PRN PRN Hypoglycemia Protocol Glucose 15 gm 03/16/24 17:52 Glucose Oral Gel 15 Gm Of Glucse In 37.5 Gm Tube PO PRN PRN Hypoglycemia Protocol Glucose 15 gm 03/17/24 12:08 Glucose Oral Gel 15 Gm Of Glucse In 37.5 Gm Tube PO PRN PRN Hypoglycemia Protocol Dextrose 1,000 mls @ 100 mls/hr 03/16/24 17:52 Dextrose 5% 1,000 Ml IVPB PRN PRN Hypoglycemia Protocol Levetiracetam 750 mg/ Dextrose 107.5 mls @ 430 mls/hr 03/17/24 06:00 03/19/24 08:57 IVPB Infused Q12H OBDULIA Infusion Ceftriaxone Sodium 1 gm in 50 mls @ 100 mls/hr 03/17/24 18:00 03/18/24 18:29 Rocephin 1 Gm/Ns 50 Ml IVPB Infused Q24H OBDULIA Infusion Azithromycin 500 mg in 250 mls @ 250 mls/hr 03/16/24 21:00 03/19/24 08:56 Zithromax IVPB Infused Q24H OBDULIA Infusion Dextrose 1,000 mls @ 100 mls/hr 03/17/24 12:08 Dextrose 5% 1,000 Ml IVPB PRN PRN Hypoglycemia Protocol Acyclovir Sodium 1,000 mg/ 270 mls @ 250 mls/hr 03/18/24 05:00 03/19/24 07:38 Dextrose IVPB Infused Q12H OBDULIA Infusion Insulin Aspart 2 - 5 units 03/17/24 17:00 03/19/24 07:45 Insulin Aspart (*Bkc) 100 Units/Ml SUB-Q Not Given TIDWM OBDULIA Protocol Ondansetron HCl 4 mg 03/16/24 17:50 Ondansetron Inj 4 Mg/2 Ml Vial IV PUSH Q4H PRN Nausea Perflutren Lipid Microsphere 0 ml 03/16/24 20:30 Perflutren Lipid Microspheres 1.5 Ml Vial Diluted To 10 Ml Total Volume IV PUSH 03/19/24 20:30 ONCE PRN adequate visualization Protocol Sodium Chloride 6 ml 03/18/24 05:00 03/19/24 05:37 Sodium Chlor 3% 15 Ml Neb (Respiratory Therapy) INHALATION 03/20/24 05:01 6 ml DAILY@0500 OBDULIA Administration Sodium Chloride 10 ml 03/17/24 22:00 03/19/24 07:49 Saline Lock Flush IV PUSH 10 ml Q8HR OBDULIA Administration Sodium Chloride 10 ml 03/17/24 20:10 Saline Lock Flush IV PUSH PRN PRN Flush Radiology Results: ITS Impressions Head CT 03/16/24 10:24 IMPRESSION: 1. Normal aging brain. Chest CTA 03/16/24 16:42 IMPRESSION: 1. Left lower lobe pneumonia. 2. No pulmonary embolism. 3. Herniation of the stomach into the chest. 4. Prominent pulmonary artery which may indicate pulmonary hypertension. Head/Neck CTA 03/16/24 17:01 IMPRESSION: 1. CTA head and neck. Percent stenosis per NASCET criteria is 0%. 2. Prominent area in the anterior left cavernous sinus which may be an aneurysm. Further evaluation advised. 3. Absent left A1 segment. 4. Posterior communicating arteries continue otherwise posterior cerebral arteries. 5. No definite evidence of occlusion or significant stenosis in the intracerebral arteries although the distal branches of the posterior cerebral arteries are not very clear. Brain MRI 03/17/24 13:38 IMPRESSION: 1. Swelling and signal abnormality involving anteromedial left temporal lobe suspicious for HSV encephalitis. 2. 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 ADDENDUM: 03/17/24 1351 I discussed this result with Edie Stuart. Lumbar Puncture Fluoroscopy 03/18/24 12:35 IMPRESSION: 1. Successful fluoro-guided lumbar puncture. Chest X-Ray 03/19/24 10:01 IMPRESSION: 1. Mild atelectasis in left lower lung zone. 2. Large hiatal hernia. Labs Labs: Laboratory Results - last 24 hr 03/18/24 03/18/24 03/18/24 11:24 12:07 12:13 WBC RBC Hgb Hct MCV MCH MCHC RDW Plt Count MPV Immature Gran % (Auto) Neut % (Auto) Lymph % (Auto) Yates % (Auto) Eos % (Auto) Baso % (Auto) Lymph # (Auto) Yates # (Auto) Eos # (Auto) Baso # (Auto) Abs Immat Gran (auto) Absolute Neuts (auto) Absolute Nucleated RBC Nucleated RBC % Sodium Potassium Chloride Carbon Dioxide Anion Gap BUN Creatinine Estim Creat Clear Calc Estimated GFR Glucose POC Capillary Glucose 130 H Calcium Total Bilirubin AST ALT Alkaline Phosphatase Total Protein Albumin CSF Source Csf CSF Appearance Clear CSF Color Colorless CSF RBC 9 H CSF Tot Nucleated Cells 1 CSF Neutrophils 1 CSF Lymphocytes 47 CSF Monocytes 25 CSF Macrophages 2 CSF Other Cells 25 CSF Glucose 60 CSF Total Protein 61 H 03/18/24 03/18/24 03/19/24 15:59 20:37 06:33 WBC 6.7 RBC 3.27 L Hgb 10.6 L Hct 31.9 L MCV 97.6 MCH 32.4 MCHC 33.2 RDW 14.0 Plt Count 189 MPV 10.0 Immature Gran % (Auto) 0.4 Neut % (Auto) 66.9 Lymph % (Auto) 19.7 Yates % (Auto) 9.6 H Eos % (Auto) 2.8 Baso % (Auto) 0.6 Lymph # (Auto) 1.32 Yates # (Auto) 0.6 Eos # (Auto) 0.2 Baso # (Auto) 0.0 Abs Immat Gran (auto) 0.03 Absolute Neuts (auto) 4.5 Absolute Nucleated RBC 0.000 Nucleated RBC % 0.0 Sodium 133 L Potassium 3.6 Chloride 105 Carbon Dioxide 23 Anion Gap 5 BUN 33 H Creatinine 1.30 H Estim Creat Clear Calc 36 Estimated GFR 39 L Glucose 121 H POC Capillary Glucose 154 H 148 H Calcium 8.4 Total Bilirubin 0.6 AST 39 H ALT 16 Alkaline Phosphatase 58 Total Protein 5.0 L Albumin 2.8 L CSF Source CSF Appearance CSF Color CSF RBC CSF Tot Nucleated Cells CSF Neutrophils CSF Lymphocytes CSF Monocytes CSF Macrophages CSF Other Cells CSF Glucose CSF Total Protein 03/19/24 07:44 WBC RBC Hgb Hct MCV MCH MCHC RDW Plt Count MPV Immature Gran % (Auto) Neut % (Auto) Lymph % (Auto) Yates % (Auto) Eos % (Auto) Baso % (Auto) Lymph # (Auto) Yates # (Auto) Eos # (Auto) Baso # (Auto) Abs Immat Gran (auto) Absolute Neuts (auto) Absolute Nucleated RBC Nucleated RBC % Sodium Potassium Chloride Carbon Dioxide Anion Gap BUN Creatinine Estim Creat Clear Calc Estimated GFR Glucose POC Capillary Glucose 104 Calcium Total Bilirubin AST ALT Alkaline Phosphatase Total Protein Albumin CSF Source CSF Appearance CSF Color CSF RBC CSF Tot Nucleated Cells CSF Neutrophils CSF Lymphocytes CSF Monocytes CSF Macrophages CSF Other Cells CSF Glucose CSF Total Protein
--- NOTE | 2024-03-19 11:12 | WPDNEUROLOGY ---
Neurology EEG Report General Information Date of Study: 03/19/24 TEST Electroencephalogram DIAGNOSIS New onset seizure disorder CONDITION OF RECORDING Bedside recording EEG NUMBER [id number] CLINICAL HISTORY history of new onset seizure disorder. Patient found to have a lesion in the left temporal area EEG DESCRIPTION During wakefulness the background activity consists of posterior dominant alpha rhythm at 8 hertz an amplitude of 20-40 microvolts which appears moderately formed and reactive to eye opening. Anteriorly low amplitude mixed frequency activity was seen. There is a good anteroposterior gradient. Hyperventilation or photic stimulation were not performed. Patient did not progress to stage 2 sleep however was briefly drowsy during which superimposed intermittent rhythmic delta activity was seen. Patient did not progress to stage 2 sleep. Intermittent muscle tension artifacts were seen. IMPRESSION This is a normal EEG obtained during awake state.
--- NOTE | 2024-03-19 11:22 | P.PNNEUR_ITS ---
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 Spinal fluid showed only 1 white cell. Protein was 61. The PCR for herpes simplex is still awaited. The possibility of a nonenhancing tumor should be considered. I would suggest a neuro surgical consultation and she may require a biopsy in the meanwhile I would suggest continue the acyclovir and anticonvulsants. (3) Aneurysm of left internal carotid artery: Code(s): I67.1 - Cerebral aneurysm, nonruptured Status: Acute Assessment and Plan: This is most likely a coincidental finding since there does not appear to be have been any xanthochromia and the spinal fluid and there was no evidence for bleed noted on the CT scan of the brain without contrast here. Once again a neurosurgical opinion will be valuable. Plan Out suggest to continue with the Keppra and consider neurosurgical. And continue the acyclovir. Subjective Date/time seen: 03/19/24 11:22 Interval history: The patient is 78 years old with history of onset of seizure-like activity witnessed by her in early hours in the morning. Patient brought to the hospital and was initially intubated and then extubated. MRI of the brain shows a lesion in the left temporal area. Patient was suspected of herpes encephalitis and now on acyclovir and also on Keppra 750 mg twice a day. Attempts were made to transfer her to tertiary care center initially however she was made DNR and was subsequently extubated. However patient has for quite awake and alert and is doing fairly well at this time. She denies any headache. For last 1 month she has had some difficulty with memory and finding words. Review of Systems Review of Systems: No long-term memory problems however in the last 1 month she has had difficulty with word-finding difficulty and memory as described above. All systems reviewed & are unremarkable except as noted in HPI and below Exam Const: General: cooperative, well developed and alert Orientation/consciousness: patient oriented x3 HENMT: Head: atraumatic Mouth: Yes oropharynx normal Eyes: Alignment and Position: position normal Pupils: Equal, round and reactive pupils present EOM: EOMs intact bilaterally Neck: Neck: supple Resp: Effort & Inspection: normal respiratory effort Neuro: General: patient oriented x3 Cranial nerves: Yes CN's II-XII intact bilaterally, Yes facial sensation intact/muscles of mastication intact, Yes Equal, round and reactive pupils present, Yes facial symmetry and Yes Midline tongue present Cognition (Neuro): normal cognition Speech: normal speech Motor exam (neuro): 5/5 motor strength present throughout Coordination: [id number] test normal and Normal rapid alternating movements of the distal upper extremity present (Neuro) Objective Data Vital Signs Vital Signs: Vital Signs - 24 hr 03/18/24 12:00 03/18/24 12:00 03/18/24 14:00 Temperature 98.6 F Pulse Rate 73 79 80 Respiratory Rate 20 Blood Pressure 108/36 L Pulse Oximetry 98 Oxygen Delivery Fraction of Inspired Oxygen 03/18/24 16:00 03/18/24 16:00 03/18/24 17:56 Temperature 98.5 F Pulse Rate 81 80 87 Respiratory Rate 16 Blood Pressure 94/40 L Pulse Oximetry 96 Oxygen Delivery Fraction of Inspired Oxygen 03/18/24 19:47 03/18/24 19:48 03/18/24 20:00 Temperature 98.5 F Pulse Rate 77 77 75 Respiratory Rate 24 H 24 H Blood Pressure 110/48 L Pulse Oximetry 97 97 Oxygen Delivery Room Air Fraction of Inspired Oxygen 70 03/19/24 00:00 03/19/24 00:00 03/18/24 22:00 Temperature 99 F Pulse Rate 75 80 72 Respiratory Rate 24 H 20 Blood Pressure 121/39 L Pulse Oximetry 97 96 Oxygen Delivery Room Air Fraction of Inspired Oxygen 03/19/24 00:00 03/19/24 02:00 03/19/24 04:00 Temperature Pulse Rate 79 71 Respiratory Rate Blood Pressure Pulse Oximetry Oxygen Delivery Room Air Fraction of Inspired Oxygen 03/19/24 04:00 03/19/24 04:00 03/19/24 06:00 Temperature 99.5 F Pulse Rate 76 75 70 Respiratory Rate 20 Blood Pressure 105/60 Pulse Oximetry 96 Oxygen Delivery Fraction of Inspired Oxygen 03/19/24 07:50 03/19/24 08:00 03/19/24 08:00 Temperature 98.5 F Pulse Rate 66 73 Respiratory Rate 20 Blood Pressure 104/51 L Pulse Oximetry 98 Oxygen Delivery Room Air Fraction of Inspired Oxygen 03/19/24 10:00 Temperature Pulse Rate 72 Respiratory Rate Blood Pressure Pulse Oximetry Oxygen Delivery Fraction of Inspired Oxygen Intake/Output Intake/Output: Intake & Output 03/16/24 03/17/24 03/18/24 03/19/24 23:59 23:59 23:59 23:59 Intake Total 1101.5 1875.0 1505.0 1177.5 Output Total 1150 430 Balance 1101.5 725.0 1075.0 1177.5 Meds/Results Medications: Active Medications Generic Name Dose Route Start Last Admin Trade Name Freq PRN Reason Stop Dose Admin Acetaminophen 650 mg 03/16/24 17:50 Acetaminophen 325 Mg Tablet PO Q4H PRN Mild Pain (1-3) or Fever Aspirin 81 mg 03/18/24 09:00 03/19/24 07:46 Aspirin 81 Mg Enteric Tablet PO 81 mg QAM OBDULIA Administration Atenolol 25 mg 03/18/24 09:00 03/19/24 07:46 Atenolol 25 Mg Tablet PO 25 mg DAILY OBDULIA Administration Atorvastatin Calcium 20 mg 03/18/24 09:00 03/19/24 07:47 Atorvastatin 20 Mg Tablet PO 20 mg DAILY OBDULIA Administration Celecoxib 200 mg 03/18/24 09:00 03/19/24 07:47 Celecoxib 200 Mg Capsule PO 200 mg DAILY OBDULIA Administration Dextrose 12.5 gm 03/16/24 17:52 Dextrose 50% 25 Gm/50 Ml Syringe IV PUSH PRN PRN Hypoglycemia Protocol Dextrose 12.5 gm 03/17/24 12:08 Dextrose 50% 25 Gm/50 Ml Syringe IV PUSH PRN PRN Hypoglycemia Protocol Enoxaparin Sodium 40 mg 03/17/24 09:00 03/19/24 07:47 Enoxaparin 40 Mg/0.4 Ml Syringe SUB-Q 40 mg DAILY OBDULIA Administration Glucagon 1 mg 03/16/24 17:52 Glucagon For Inj 1 Mg Vial IM PRN PRN Hypoglycemia Protocol Glucagon 1 mg 03/17/24 12:08 Glucagon For Inj 1 Mg Vial IM PRN PRN Hypoglycemia Protocol Glucose 15 gm 03/16/24 17:52 Glucose Oral Gel 15 Gm Of Glucse In 37.5 Gm Tube PO PRN PRN Hypoglycemia Protocol Glucose 15 gm 03/17/24 12:08 Glucose Oral Gel 15 Gm Of Glucse In 37.5 Gm Tube PO PRN PRN Hypoglycemia Protocol Dextrose 1,000 mls @ 100 mls/hr 03/16/24 17:52 Dextrose 5% 1,000 Ml IVPB PRN PRN Hypoglycemia Protocol Levetiracetam 750 mg/ Dextrose 107.5 mls @ 430 mls/hr 03/17/24 06:00 03/19/24 08:57 IVPB Infused Q12H OBDULIA Infusion Ceftriaxone Sodium 1 gm in 50 mls @ 100 mls/hr 03/17/24 18:00 03/18/24 18:29 Rocephin 1 Gm/Ns 50 Ml IVPB Infused Q24H OBDULIA Infusion Azithromycin 500 mg in 250 mls @ 250 mls/hr 03/16/24 21:00 03/19/24 08:56 Zithromax IVPB Infused Q24H OBDULIA Infusion Dextrose 1,000 mls @ 100 mls/hr 03/17/24 12:08 Dextrose 5% 1,000 Ml IVPB PRN PRN Hypoglycemia Protocol Acyclovir Sodium 1,000 mg/ 270 mls @ 250 mls/hr 03/18/24 05:00 03/19/24 07:38 Dextrose IVPB Infused Q12H OBDULIA Infusion Insulin Aspart 2 - 5 units 03/17/24 17:00 03/19/24 07:45 Insulin Aspart (*Bkc) 100 Units/Ml SUB-Q Not Given TIDWM OBDULIA Protocol Ondansetron HCl 4 mg 03/16/24 17:50 Ondansetron Inj 4 Mg/2 Ml Vial IV PUSH Q4H PRN Nausea Perflutren Lipid Microsphere 0 ml 03/16/24 20:30 Perflutren Lipid Microspheres 1.5 Ml Vial Diluted To 10 Ml Total Volume IV PUSH 03/19/24 20:30 ONCE PRN adequate visualization Protocol Sodium Chloride 6 ml 03/18/24 05:00 03/19/24 05:37 Sodium Chlor 3% 15 Ml Neb (Respiratory Therapy) INHALATION 03/20/24 05:01 6 ml DAILY@0500 OBDULIA Administration Sodium Chloride 10 ml 03/17/24 22:00 03/19/24 07:49 Saline Lock Flush IV PUSH 10 ml Q8HR OBDULIA Administration Sodium Chloride 10 ml 03/17/24 20:10 Saline Lock Flush IV PUSH PRN PRN Flush Radiology Results: ITS Impressions Head CT 03/16/24 10:24 IMPRESSION: 1. Normal aging brain. Chest CTA 03/16/24 16:42 IMPRESSION: 1. Left lower lobe pneumonia. 2. No pulmonary embolism. 3. Herniation of the stomach into the chest. 4. Prominent pulmonary artery which may indicate pulmonary hypertension. Head/Neck CTA 03/16/24 17:01 IMPRESSION: 1. CTA head and neck. Percent stenosis per NASCET criteria is 0%. 2. Prominent area in the anterior left cavernous sinus which may be an aneurysm. Further evaluation advised. 3. Absent left A1 segment. 4. Posterior communicating arteries continue otherwise posterior cerebral arteries. 5. No definite evidence of occlusion or significant stenosis in the in tracerebral arteries although the distal branches of the posterior cerebral arteries are not very clear. Brain MRI 03/17/24 13:38 IMPRESSION: 1. Swelling and signal abnormality involving anteromedial left temporal lobe suspicious for HSV encephalitis. 2. 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 ADDENDUM: 03/17/24 1351 I discussed this result with Edie Stuart. Lumbar Puncture Fluoroscopy 03/18/24 12:35 IMPRESSION: 1. Successful fluoro-guided lumbar puncture. Chest X-Ray 03/19/24 10:01 IMPRESSION: 1. Mild atelectasis in left lower lung zone. 2. Large hiatal hernia. Labs Labs: Laboratory Results - last 24 hr 03/18/24 03/18/24 03/18/24 11:24 12:07 12:13 WBC RBC Hgb Hct MCV MCH MCHC RDW Plt Count MPV Immature Gran % (Auto) Neut % (Auto) Lymph % (Auto) [place] % (Auto) Eos % (Auto) Baso % (Auto) Lymph # (Auto) [place] # (Auto) Eos # (Auto) Baso # (Auto) Abs Immat Gran (auto) Absolute Neuts (auto) Absolute Nucleated RBC Nucleated RBC % Sodium Potassium Chloride Carbon Dioxide Anion Gap BUN Creatinine Estim Creat Clear Calc Estimated GFR Glucose POC Capillary Glucose 130 H Calcium Total Bilirubin AST ALT Alkaline Phosphatase Total Protein Albumin CSF Source Csf CSF Appearance Clear CSF Color Colorless CSF RBC 9 H CSF Tot Nucleated Cells 1 CSF Neutrophils 1 CSF Lymphocytes 47 CSF Monocytes 25 CSF Macrophages 2 CSF Other Cells 25 CSF Glucose 60 CSF Total Protein 61 H 03/18/24 03/18/24 03/19/24 15:59 20:37 06:33 WBC 6.7 RBC 3.27 L Hgb 10.6 L Hct 31.9 L MCV 97.6 MCH 32.4 MCHC 33.2 RDW 14.0 Plt Count 189 MPV 10.0 Immature Gran % (Auto) 0.4 Neut % (Auto) 66.9 Lymph % (Auto) 19.7 [place] % (Auto) 9.6 H Eos % (Auto) 2.8 Baso % (Auto) 0.6 Lymph # (Auto) 1.32 [place] # (Auto) 0.6 Eos # (Auto) 0.2 Baso # (Auto) 0.0 Abs Immat Gran (auto) 0.03 Absolute Neuts (auto) 4.5 Absolute Nucleated RBC 0.000 Nucleated RBC % 0.0 Sodium 133 L Potassium 3.6 Chloride 105 Carbon Dioxide 23 Anion Gap 5 BUN 33 H Creatinine 1.30 H Estim Creat Clear Calc 36 Estimated GFR 39 L Glucose 121 H POC Capillary Glucose 154 H 148 H Calcium 8.4 Total Bilirubin 0.6 AST 39 H ALT 16 Alkaline Phosphatase 58 Total Protein 5.0 L Albumin 2.8 L CSF Source CSF Appearance CSF Color CSF RBC CSF Tot Nucleated Cells CSF Neutrophils CSF Lymphocytes CSF Monocytes CSF Macrophages CSF Other Cells CSF Glucose CSF Total Protein 03/19/24 07:44 WBC RBC Hgb Hct MCV MCH MCHC RDW Plt Count MPV Immature Gran % (Auto) Neut % (Auto) Lymph % (Auto) [place] % (Auto) Eos % (Auto) Baso % (Auto) Lymph # (Auto) [place] # (Auto) Eos # (Auto) Baso # (Auto) Abs Immat Gran (auto) Absolute Neuts (auto) Absolute Nucleated RBC Nucleated RBC % Sodium Potassium Chloride Carbon Dioxide Anion Gap BUN Creatinine Estim Creat Clear Calc Estimated GFR Glucose POC Capillary Glucose 104 Calcium Total Bilirubin AST ALT Alkaline Phosphatase Total Protein Albumin CSF Source CSF Appearance CSF Color CSF RBC CSF Tot Nucleated Cells CSF Neutrophils CSF Lymphocytes CSF Monocytes CSF Macrophages CSF Other Cells CSF Glucose CSF Total Protein Imaging Attestation: I personally reviewed and interpreted this imaging study as follows: ( MRI of the brain) My impression: lesion noted in the left temporal area did not enhance with contrast
--- NOTE | 2024-03-19 11:29 | PCOTNOTE ---
Patient unavailable at this time. Patient is having an multi-disciplinary discussion with a team at this time. Will check back at a later time.
--- NOTE | 2024-03-19 12:56 | PC.NURSE ---
Called report to receiving nurseJanessa. Pt will be going to room 310.
[2024-03-19 15:18] LABS: Glucose Point of Care 144 mg/dl (65-105)
[2024-03-19 16:37] LABS: Glucose Point of Care 106 mg/dl (65-105)
[2024-03-19 16:41] LABS: Glucose Point of Care 109 mg/dl (65-105)
[2024-03-19] MEDS: AMOXICILLIN/CLAVULANATE K 875-125 MG TAB 1 TABLET PO (18:31)
[2024-03-19] MEDS: AZITHROMYCIN 250 MG TABLET 500 MG PO (20:32)
[2024-03-19 20:54] LABS: Glucose Point of Care 162 mg/dl (65-105)
[2024-03-20] VITALS (10 sets, daily range): BP systolic 111–130; BP diastolic 40–49; PULSE 66–82; RESP 16–20; TEMP 36.2–37.4; O2SAT 96–98
[2024-03-20] MEDS: levETIRAcetam IV 750 MG in DEXTROSE 5% 100 ML 430 MG IVPB ×2 (05:09→17:27)
[2024-03-20] MEDS: SALINE LOCK FLUSH 10 ML IV PUSH ×2 (05:10→23:02)
[2024-03-20] MEDS: ACYCLOVIR SODIUM IVPB 1,000 MG in DEXTROSE 5% IN WATER 250 ML 250 MG IVPB ×2 (05:11→17:27)
[2024-03-20] MEDS: SODIUM CHLOR 3% 15 ML NEB (RESPIRATORY THERAPY) 6 ML INHALATION (05:12)
--- NOTE | 2024-03-20 05:18 | PCRCNOTE ---
Pt produced sputum sample.
[2024-03-20 07:05] LABS: Basophils Absolute Auto 0.1 K/mm3 (0.0-0.1); Basophils Percent Auto 0.7 % (0.2-1.2); Eosinophils Absolute Auto 0.3 K/mm3 (0-0.3); Eosinophils Percent Auto 3.8 % (0-4.4); Hematocrit 30.6 % (37.0-47.0); Hemoglobin 10.3 g/dL (12.0-15.0); Immature Granulocyte Absolute 0.04 K/mm3 (0.00-0.031); Immature Granulocyte Percent A 0.6 % (0-0.5); Lymphocytes Percent Auto 19.6 % (18.3-44.2); Mean Corpuscular HGB Conc 33.7 g/dl (32-36); Mean Corpuscular Hemoglobin 32.6 pg (26-34); Mean Corpuscular Volume 96.8 fl (80-100); Mean Platelet Volume 9.9 fl (7.4-10.4); Monocytes Absolute Auto 0.8 K/mm3 (0.1-0.6); Monocytes Percent Auto 11.6 % (2.6-8.5); Neutrophils Absolute Auto 4.6 K/mm3 (1.3-6.7); Neutrophils Percent Auto 63.7 % (45.5-73.1); Platelet Count Result 195 k/mm3 (150-375); Red Blood Count 3.16 M/mm3 (4.2-5.4); Red Cell Distribution Width 14.1 % (11.5-14.5); White Blood Count 7.2 K/mm3 (4.5-10.0)
[2024-03-20 07:18] LABS: Alanine Aminotransferase 15 U/L (6-35); Albumin Level 2.7 g/dL (3.5-5.1); Alkaline Phosphatase 50 U/L (38-126); Anion Gap 7 mmol/L (4-12); Aspartate Amino Transferase 34 U/L (14-36); Bilirubin,Total 0.6 mg/dL (0.2-1.3); Blood Urea Nitrogen 26 mg/dL (7-17); Calcium 8.5 mg/dL (8.4-10.2); Carbon Dioxide 26 mmol/L (22-30); Chloride 106 mmol/L (98-107); Estimated CRCL calculation 52 ml/min; Estimated Glomerular Filt Rate 60; Glucose 104 mg/dL (65-110); Potassium 3.6 mmol/L (3.4-5.0); Sodium 139 mmol/L (137-145)
[2024-03-20 08:06] LABS: Glucose Point of Care 96 mg/dl (65-105)
[2024-03-20] MEDS: ATORVASTATIN 20 MG TABLET PO (08:36)
[2024-03-20] MEDS: ASPIRIN 81 MG ENTERIC TABLET PO (08:36)
[2024-03-20] MEDS: atenoloL 25 MG TABLET PO (08:36)
[2024-03-20] MEDS: CELECOXIB 200 MG CAPSULE PO (08:36)
[2024-03-20] MEDS: ENOXAPARIN 40 MG/0.4 ML SYRINGE SUB-Q (08:36)
[2024-03-20] MEDS: AMOXICILLIN/CLAVULANATE K 875-125 MG TAB 1 TABLET PO ×2 (08:36→19:50)
[2024-03-20 11:51] LABS: Glucose Point of Care 118 mg/dl (65-105)
--- NOTE | 2024-03-20 13:50 | P.PNIM_ITS ---
Progress Note: A&P Assessment and Plan (1) Seizure: Code(s): R56.9 - Unspecified convulsions Status: Acute Assessment and Plan: -- reported seizure activity on arrival requiring intubation for airway protection, initially on propofol for sedation and anticonvulsant. patient woke up while in the ED and was extubated on 2 L nasal cannula as she was also following commands and communicating. * head CT was negative for any acute intracranial findings * head/neck CTA showed 0% stenosis in bilateral carotid bulbs, prominent area in the anterior left cavernous sinus which may be an aneurysm, absent left A1 segment, no definite evidence of occlusion or significant stenosis in the intracerebral arteries although the distal branches of the posterior cerebral arteries were not clear on this examination * urine drug screen was positive for benzodiazepines, ETOH less than 10 * MRI of the brain and brainstem with and without contrast ordered * will also obtain echocardiogram with bubble study * neurology consulted * PT/OT/ speech therapy ordered * NPO except for ice chips for possible swallow study * loading dose of Keppra was given while in the ED * continue Keppra and aspirin * Continue seizure precautions * continue neuro checks * Keep section near by at bedside 03/17/24 * MRI brain showed: Swelling and signal abnormality involving anteromedial left temporal lobe suspicious for HSV encephalitis. 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 * Likely cause of patient seizures * started on IV acyclovir * Order LP 03/18/24: * LP scheduled 12:00 evaluate for xanthochromia and HSV PCR * Symptoms improving * will need superintendent terminal IV acyclovir if positive HSV 03/20/2024: * LP clear, colorless and appropriate pressure * HS the culture sent could take up to 7 more days for results * Patient responding well to IV acyclovir * Renal function continue to improve and stable can transition back to acyclovir IV Q 8 hours and take her off renal dosing * PICC in place for superintendent terminal will need 21 days due to immunocompromised with rheumatoid arthritis (3) 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 * requesting transfer to [facility] 03/18/2024 * LP transfer TBD no need if no rupture can follow-up outpatient 03/20/24: * Spoke with neuro surgery, neurologist and vascular services at [facility] no need for transfer at this time can follow up outpatient LP showed no Xanthochromia clear and colorless with appropriate pressure (4) Pneumonia: Code(s): J18.9 - Pneumonia, unspecified organism Status: Acute Assessment and Plan: * CTA of the chest revealed left lower lobe pneumonia, herniation of the stomach into the chest, negative for PE, prominent pulmonary artery which may indicate pulmonary hypertension * chest x-ray showing airspace opacities in the left mid and lower lung zones consistent with pneumonia * patient was given Rocephin, vancomycin, and ampicillin while in the ED * MRSA was negative and vancomycin was discontinued * will change antibiotic to Rocephin and azithromycin * White blood cell count 9.6 * blood cultures NGTD (5) Non-ST elevation [place] (NSTEMI): Code(s): I21.4 - Non-ST elevation (NSTEMI) myocardial infarction Status: Acute Assessment and Plan: * troponin 0.361 at 11:02 a.m. today * will repeat troponin now * cardiology consulted * EKG showing sinus tachycardia with a rate of 100 with a QTC of 429 03/17/24: * Troponin trending up 1.110 peaked trending down * Cardiology recommendations appreciated * Echo pending 03/18/24: * Echo no significant wall motion or valvular abnormalities (6) Elevated d-dimer: Code(s): R79.89 - Other specified abnormal findings of blood chemistry Status: Acute Assessment and Plan: * D-dimer 3.21 * CTA of the chest was negative for PE RULED OUT Plan Code status: DNR/DNI DVT prophylaxis: SCD Stress ulcer prophylaxis: NA PT/OT notes: PT/OT pending Disposition: Patient continues admission to the medical unit for further evaluation and treatment of new onset seizures secondary to suspicious of HSV encephalitis. MRI with incidental finding as showing and 12 mm aneurysm in the left carotid there has been a I had spoken with Neurology, Neurosurgery, and vascular at [facility] no need for transfer at this time. Patient wanting to return home with home health services will need 21 total days of IV acyclovir results still pending could take up to 7 days, PICC line already placed. Time Spent With Patient Time with patient: 15 - 25 minutes Subjective Date/time seen: 03/20/24 13:50 Interval history: Patient is 78 year old female admitted for new onset seizures with need for airway protection who was intubated then extubated after regaining consciousness. 03/20/2024: Patient doing well today confusion and mental status close to baseline. She is working with PT/OT limited assistance. Patient with no complaints wanting to go home. Denied any CP, SOB, dizziness, visual disturbances, nausea, or vomiting. No further seizure events Review of Systems Review of Systems: All systems reviewed & are unremarkable except as noted in HPI and below Exam Narrative: * GENERAL: [place]se[place] Alert and oriented x3 mild loss of memory at times * HEENT: Moist mucous membranes. * LUNGS: Clear to auscultation bilaterally. No accessory muscle use. * CARDIOVASCULAR: Regular rate and rhythm. No murmur. No JVD. S1-S2 * ABDOMEN: Soft, non tenderness and non-distended. No palpable masses. * EXTREMITIES: No edema. Non-tender * SKIN: No rashes or lesions. Skin warm, dry. * NEUROLOGIC: No focal neurological deficits. CN II-XII grossly intact * PSYCHIATRIC: Good mood and appropriate affect Objective Data Vital Signs Vital Signs: Vital Signs - 24 hr 03/19/24 16:00 03/19/24 21:19 03/19/24 20:00 Temperature 99.1 F 98.1 F Pulse Rate 74 79 76 Respiratory Rate 18 13 Blood Pressure 118/43 L 97/44 L Pulse Oximetry 100 94 Oxygen Delivery Fraction of Inspired Oxygen 03/19/24 20:00 03/20/24 00:00 03/20/24 04:00 Temperature Pulse Rate 80 75 Respiratory Rate Blood Pressure Pulse Oximetry Oxygen Delivery Room Air Fraction of Inspired Oxygen 03/20/24 05:44 03/20/24 08:00 03/20/24 08:00 Temperature 97.1 F L Pulse Rate 76 76 76 Respiratory Rate 16 16 Blood Pressure 113/40 L Pulse Oximetry 98 98 Oxygen Delivery Room Air Fraction of Inspired Oxygen 70 03/20/24 08:02 03/20/24 12:02 Temperature Pulse Rate 66 68 Respiratory Rate Blood Pressure Pulse Oximetry Oxygen Delivery Fraction of Inspired Oxygen Intake/Output Intake/Output: Intake & Output 03/17/24 03/18/24 03/19/24 03/20/24 23:59 23:59 23:59 23:59 Intake Total 1875.0 1505.0 2295.0 1077.5 Output Total 1150 430 Balance 725.0 1075.0 2295.0 1077.5 Meds/Results Medications: Active Medications Generic Name Dose Route Start Last Admin Trade Name Freq PRN Reason Stop Dose Admin Acetaminophen 650 mg 03/16/24 17:50 Acetaminophen 325 Mg Tablet PO Q4H PRN Mild Pain (1-3) or Fever Amoxicillin/Clavulanate Potassium 1 tablet 03/19/24 19:00 03/20/24 08:36 Amoxicillin/Clavulanate K 875-125 Mg Tab PO 03/21/24 09:01 1 tablet Q12HR OBDULIA Administration Aspirin 81 mg 03/18/24 09:00 03/20/24 08:36 Aspirin 81 Mg Enteric Tablet PO 81 mg QAM OBDULIA Administration Atenolol 25 mg 03/18/24 09:00 03/20/24 08:36 Atenolol 25 Mg Tablet PO 25 mg DAILY OBDULIA Administration Atorvastatin Calcium 20 mg 03/18/24 09:00 03/20/24 08:36 Atorvastatin 20 Mg Tablet PO 20 mg DAILY OBDULIA Administration Azithromycin 500 mg 03/19/24 21:00 03/19/24 20:32 Azithromycin 250 Mg Tablet PO 03/20/24 21:01 500 mg DAILY@2100 OBDULIA Administration Celecoxib 200 mg 03/18/24 09:00 03/20/24 08:36 Celecoxib 200 Mg Capsule PO 200 mg DAILY OBDULIA Administration Dextrose 12.5 gm 03/16/24 17:52 Dextrose 50% 25 Gm/50 Ml Syringe IV PUSH PRN PRN Hypoglycemia Protocol Dextrose 12.5 gm 03/17/24 12:08 Dextrose 50% 25 Gm/50 Ml Syringe IV PUSH PRN PRN Hypoglycemia Protocol Enoxaparin Sodium 40 mg 03/17/24 09:00 03/20/24 08:36 Enoxaparin 40 Mg/0.4 Ml Syringe SUB-Q 40 mg DAILY OBDULIA Administration Glucagon 1 mg 03/16/24 17:52 Glucagon For Inj 1 Mg Vial IM PRN PRN Hypoglycemia Protocol Glucagon 1 mg 03/17/24 12:08 Glucagon For Inj 1 Mg Vial IM PRN PRN Hypoglycemia Protocol Glucose 15 gm 03/16/24 17:52 Glucose Oral Gel 15 Gm Of Glucse In 37.5 Gm Tube PO PRN PRN Hypoglycemia Protocol Glucose 15 gm 03/17/24 12:08 Glucose Oral Gel 15 Gm Of Glucse In 37.5 Gm Tube PO PRN PRN Hypoglycemia Protocol Dextrose 1,000 mls @ 100 mls/hr 03/16/24 17:52 Dextrose 5% 1,000 Ml IVPB PRN PRN Hypoglycemia Protocol Levetiracetam 750 mg/ Dextrose 107.5 mls @ 430 mls/hr 03/17/24 06:00 03/20/24 06:26 IVPB Infused Q12H OBDULIA Infusion Dextrose 1,000 mls @ 100 mls/hr 03/17/24 12:08 Dextrose 5% 1,000 Ml IVPB PRN PRN Hypoglycemia Protocol Acyclovir Sodium 1,000 mg/ 270 mls @ 250 mls/hr 03/18/24 05:00 03/20/24 06:26 Dextrose IVPB Infused Q12H OBDULIA Infusion Insulin Aspart 2 - 5 units 03/17/24 17:00 03/20/24 12:16 Insulin Aspart (*Bkc) 100 Units/Ml SUB-Q Not Given [facility] Protocol Ondansetron HCl 4 mg 03/16/24 17:50 Ondansetron Inj 4 Mg/2 Ml Vial IV PUSH Q4H PRN Nausea Sodium Chloride 10 ml 03/17/24 22:00 03/20/24 05:10 Saline Lock Flush IV PUSH 10 ml Q8HR OBDULIA Administration Sodium Chloride 10 ml 03/17/24 20:10 Saline Lock Flush IV PUSH PRN PRN Flush Radiology Results: ITS Impressions Head CT 03/16/24 10:24 IMPRESSION: 1. Normal aging brain. Chest CTA 03/16/24 16:42 IMPRESSION: 1. Left lower lobe pneumonia. 2. No pulmonary embolism. 3. Herniation of the stomach into the chest. 4. Prominent pulmonary artery which may indicate pulmonary hypertension. Head/Neck CTA 03/16/24 17:01 IMPRESSION: 1. CTA head and neck. Percent stenosis per NASCET criteria is 0%. 2. Prominent area in the anterior left cavernous sinus which may be an aneurysm. Further evaluation advised. 3. Absent left A1 segment. 4. Posterior communicating arteries continue otherwise posterior cerebral arteries. 5. No definite evidence of occlusion or significant stenosis in the intracerebral arteries although the distal branches of the posterior cerebral arteries are not very clear. Brain MRI 03/17/24 13:38 IMPRESSION: 1. Swelling and signal abnormality involving anteromedial left temporal lobe suspicious for HSV encephalitis. 2. 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 ADDENDUM: 03/17/24 [id number] I discussed this result with Edie Stuart. Lumbar Puncture Fluoroscopy 03/18/24 12:35 IMPRESSION: 1. Successful fluoro-guided lumbar puncture. Chest X-Ray 03/19/24 10:01 IMPRESSION: 1. Mild atelectasis in left lower lung zone. 2. Large hiatal hernia. Labs Labs: Laboratory Results - last 24 hr 03/16/24 03/17/24 03/19/24 09:46 14:10 11:24 WBC RBC Hgb Hct MCV MCH MCHC RDW Plt Count MPV Immature Gran % (Auto) Neut % (Auto) Lymph % (Auto) [place] % (Auto) Eos % (Auto) Baso % (Auto) Lymph # (Auto) [place] # (Auto) Eos # (Auto) Baso # (Auto) Abs Immat Gran (auto) Absolute Neuts (auto) Absolute Nucleated RBC Nucleated RBC % Sodium Potassium Chloride Carbon Dioxide Anion Gap BUN Creatinine Estim Creat Clear Calc Estimated GFR Glucose POC Capillary Glucose 144 H 106 H Calcium Total Bilirubin AST ALT Alkaline Phosphatase Total Protein Albumin HSV I Specific Ab <0.90 HSV II Specific Ab <0.90 03/19/24 03/19/24 03/20/24 16:38 20:44 06:54 WBC 7.2 RBC 3.16 L Hgb 10.3 L Hct 30.6 L MCV 96.8 MCH 32.6 MCHC 33.7 RDW 14.1 Plt Count 195 MPV 9.9 Immature Gran % (Auto) 0.6 H Neut % (Auto) 63.7 Lymph % (Auto) 19.6 [place] % (Auto) 11.6 H Eos % (Auto) 3.8 Baso % (Auto) 0.7 Lymph # (Auto) 1.40 [place] # (Auto) 0.8 H Eos # (Auto) 0.3 Baso # (Auto) 0.1 Abs Immat Gran (auto) 0.04 H Absolute Neuts (auto) 4.6 Absolute Nucleated RBC 0.000 Nucleated RBC % 0.0 Sodium 139 Potassium 3.6 Chloride 106 Carbon Dioxide 26 Anion Gap 7 BUN 26 H Creatinine 0.90 Estim Creat Clear Calc 52 Estimated GFR 60 Glucose 104 POC Capillary Glucose 109 H 162 H Calcium 8.5 Total Bilirubin 0.6 AST 34 ALT 15 Alkaline Phosphatase 50 Total Protein 5.0 L Albumin 2.7 L HSV I Specific Ab HSV II Specific Ab 03/20/24 03/20/24 08:00 11:33 WBC RBC Hgb Hct MCV MCH MCHC RDW Plt Count MPV Immature Gran % (Auto) Neut % (Auto) Lymph % (Auto) [place] % (Auto) Eos % (Auto) Baso % (Auto) Lymph # (Auto) [place] # (Auto) Eos # (Auto) Baso # (Auto) Abs Immat Gran (auto) Absolute Neuts (auto) Absolute Nucleated RBC Nucleated RBC % Sodium Potassium Chloride Carbon Dioxide Anion Gap BUN Creatinine Estim Creat Clear Calc Estimated GFR Glucose POC Capillary Glucose 96 118 H Calcium Total Bilirubin AST ALT Alkaline Phosphatase Total Protein Albumin HSV I Specific Ab HSV II Specific Ab Quality VTE Prophylaxis VTE prophylaxis: pharmacologic ordered -Patient's previous records reviewed on admission -ER notes reviewed in detail on admission -discussed all findings and current treatment plan with patient/Family/POA -Consultations reviewed for recommendations -Patient's disposition for safe discharge discussed with case hardener Dictation performed by [employer] direct speech recognition software, therefore wheel fitter variants and typographical errors may occur. Hospitalist MIPS Advance Care Plan I have confirmed that the patient's Advanced Care Plan is present, code status is documented, or surrogate decision maker is listed in patient medical record.: Yes Medication Reconciliation I have utilized all available resources to obtain, update and review the patients current medications (includes all prescriptions, OTC, herbals, cannabis, and nutritional supplements).: Yes The patient is not eligible for med reconciliation; the patient is in a emergent medical situation where delaying treatment would jeopardize the patients health.: No
[2024-03-20 16:03] LABS: Glucose Point of Care 145 mg/dl (65-105)
[2024-03-20] MEDS: AZITHROMYCIN 250 MG TABLET 500 MG PO (19:50)
[2024-03-21] VITALS (9 sets, daily range): BP systolic 105–138; BP diastolic 42–50; PULSE 64–92; RESP 18; TEMP 36.7–37.5; O2SAT 92–97
[2024-03-21 03:03] LABS: Glucose Point of Care 114 mg/dl (65-105)
[2024-03-21] MEDS: ACYCLOVIR SODIUM IVPB 1,000 MG in DEXTROSE 5% IN WATER 250 ML 250 MG IVPB ×3 (04:14→23:38)
[2024-03-21] MEDS: SALINE LOCK FLUSH 10 ML IV PUSH ×3 (05:37→20:52)
[2024-03-21] MEDS: levETIRAcetam IV 750 MG in DEXTROSE 5% 100 ML 430 MG IVPB (05:43)
--- NOTE | 2024-03-21 07:08 | P.PNIM_ITS ---
Progress Note: A&P Assessment and Plan (1) Seizure: Code(s): R56.9 - Unspecified convulsions Status: Acute Assessment and Plan: -- reported seizure activity on arrival requiring intubation for airway protection, initially on propofol for sedation and anticonvulsant. patient woke up while in the ED and was extubated on 2 L nasal cannula as she was also following commands and communicating. * head CT was negative for any acute intracranial findings * head/neck CTA showed 0% stenosis in bilateral carotid bulbs, prominent area in the anterior left cavernous sinus which may be an aneurysm, absent left A1 segment, no definite evidence of occlusion or significant stenosis in the intracerebral arteries although the distal branches of the posterior cerebral arteries were not clear on this examination * urine drug screen was positive for benzodiazepines, ETOH less than 10 * MRI of the brain and brainstem with and without contrast ordered * will also obtain echocardiogram with bubble study * neurology consulted * PT/OT/ speech therapy ordered * NPO except for ice chips for possible swallow study * loading dose of Keppra was given while in the ED * continue Keppra and aspirin * Continue seizure precautions * continue neuro checks * Keep section near by at bedside 03/17/24 * MRI brain showed: Swelling and signal abnormality involving anteromedial left temporal lobe suspicious for HSV encephalitis. 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 03/20/2024: * LP clear, colorless and appropriate pressure * HS the culture sent could take up to 7 more days for results * Patient responding well to IV acyclovir * Renal function continue to improve if stable can transition back to acyclovir IV Q 8 hours in take her off renal dosing : * No recurrent seizure since admission * Will discharge on keppra 750 mg PO BID * IV changed to PO (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 * Likely cause of patient seizures * started on IV acyclovir * Order LP 03/18/24: * LP scheduled 12:00 evaluate for xanthochromia and HSV PCR * Symptoms improving * will need intermission coordinator IV acyclovir if positive HSV 03/20/2024: * LP clear, colorless and appropriate pressure * HS the culture sent could take up to 7 more days for results * Patient responding well to IV acyclovir * Renal function continue to improve and stable can transition back to acyclovir IV Q 8 hours and take her off renal dosing * PICC in place for nursing home will need 21 days due to immunocompromised with rheumatoid arthritis 03/21/24: * CSF cytology shows no malignancy, scattered mononuclear cells * Gram stain final, no organism seen * CSF culture moderate WBC, no organisms seen. No AFB seen. * HSV PCR pending * Planning for Acyclovir 1 gram TID IVPB for a total of 21 days. End of treatment on 04/07/24. Patient is planning on going home with home health. 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 * requesting transfer to tertiary hospital 03/18/2024 * LP transfer TBD no need if no rupture can follow-up outpatient 03/20/24: * Spoke with neuro surgery, neurologist and vascular services at [facility] no need for transfer at this time can follow up outpatient LP showed no Xanthochromia clear and colorless with appropriate pressure 03/21/24: * Spoke with Dr Paul, neurosurgery here at [facility] and she would agree with neurosurgery outpatient follow up for saccular aneurysm. She cannot appreciate an obvious mass on imaging but would recommend repeat MRI after anti-viral treatment and follow up with neurosurgery as an outpatient. (4) Pneumonia: Code(s): J18.9 - Pneumonia, unspecified organism Status: Acute Assessment and Plan: * CTA of the chest revealed left lower lobe pneumonia, herniation of the stomach into the chest, negative for PE, prominent pulmonary artery which may indicate pulmonary hypertension * chest x-ray showing airspace opacities in the left mid and lower lung zones consistent with pneumonia * patient was given Rocephin, vancomycin, and ampicillin while in the ED * MRSA was negative and vancomycin was discontinued * will change antibiotic to Rocephin and azithromycin * White blood cell count 9.6 * blood cultures NGTD * 03/21/24 completed 5 days of Augmentin and Azithromycin for pneumonia (5) Non-ST elevation [place] (NSTEMI): Code(s): I21.4 - Non-ST elevation (NSTEMI) myocardial infarction Status: Acute Assessment and Plan: * troponin 0.361 at 11:02 a.m. today * will repeat troponin now * cardiology consulted * EKG showing sinus tachycardia with a rate of 100 with a QTC of 429 03/17/24: * Troponin trending up 1.110 peaked trending down * Cardiology recommendations appreciated * Echo pending 03/18/24: * Echo no significant wall motion or valvular abnormalities 03/21/24: * possibly NSTEMI vs demand from seizure. * Continue ASA 81 mg daily, atorvastatin 40 mg daily * Continue atenolol and lisinopril (6) Elevated d-dimer: Code(s): R79.89 - Other specified abnormal findings of blood chemistry Status: Acute Assessment and Plan: * D-dimer 3.21 * CTA of the chest was negative for PE RULED OUT Plan Code status: DNR/DNI DVT prophylaxis: SCD Stress ulcer prophylaxis: NA PT/OT notes: PT/OT pending Disposition: Patient continues admission to the medical unit for further evaluation and treatment of new onset seizures secondary to suspicious of HSV encephalitis. MRI with incidental finding as showing and 12 mm aneurysm in the left carotid. Previous clinician had spoken with Neurology, Neurosurgery, and vascular at [facility] no need for transfer at this time. Patient wanting to return home with home health services will need 21 total days of IV acyclovir through 04/07/24 PICC line already placed. Subjective Date/time seen: 03/21/24 07:08 Interval history: No acute events overnight. She is alert and orientated x 4 with slow recall of date. She reports she has been in her usual state of health overall but since the beginning of the month she was noticing she was having difficulty with loss of short term memory. She reported this to her PCP who had scheduled her an outpatient MRI for next month 04/07/24. Overall she is doing well and has no recurrence of seizure since admission. She is wanting to go home with home health and antibiotics. Review of Systems Review of Systems: All systems reviewed & are unremarkable except as noted in HPI and below Exam Narrative: General: appears comfortable, in no acute distress Respiratory: breathing is unlabored with even chest rise/fall, lungs are clear without wheezing, rhonchi, and crackles Cardiovascular: Rate and rhythm regular, normal s1s2, no murmur Abdomen: Soft, round, non-tender, active bowel sounds Extremities: No cyanosis, edema, clubbing. Pulses 2/2 Neuro: A&O x 4, slow recall, right lateral gaze nystagmus. Skin: Warm, dry, intact Objective Data Vital Signs Vital Signs: Vital Signs - 24 hr 03/20/24 08:00 03/20/24 08:00 03/20/24 08:02 Temperature Pulse Rate 76 76 66 Respiratory Rate 16 Blood Pressure Pulse Oximetry 98 Oxygen Delivery Room Air Fraction of Inspired Oxygen 70 03/20/24 12:02 03/20/24 14:00 03/20/24 16:02 Temperature 99.4 F Pulse Rate 68 82 71 Respiratory Rate 20 Blood Pressure 130/40 L Pulse Oximetry 96 Oxygen Delivery Fraction of Inspired Oxygen 03/20/24 21:03 03/20/24 20:00 03/21/24 00:00 Temperature 98.5 F Pulse Rate 73 73 67 Respiratory Rate 18 Blood Pressure 111/49 L Pulse Oximetry 97 Oxygen Delivery Fraction of Inspired Oxygen 03/21/24 04:00 03/21/24 05:40 Temperature 98.4 F Pulse Rate 67 70 Respiratory Rate 18 Blood Pressure 105/42 L Pulse Oximetry 92 Oxygen Delivery Fraction of Inspired Oxygen Intake/Output Intake/Output: Intake & Output 03/18/24 03/19/24 03/20/24 03/21/24 23:59 23:59 23:59 23:59 Intake Total 1505.0 2295.0 2315.0 370 Output Total 430 Balance 1075.0 2295.0 2315.0 370 Meds/Results Medications: Active Medications Generic Name Dose Route Start Last Admin Trade Name Freq PRN Reason Stop Dose Admin Acetaminophen 650 mg 03/16/24 17:50 Acetaminophen 325 Mg Tablet PO Q4H PRN Mild Pain (1-3) or Fever Amoxicillin/Clavulanate Potassium 1 tablet 03/19/24 19:00 03/20/24 19:50 Amoxicillin/Clavulanate K 875-125 Mg Tab PO 03/21/24 09:01 1 tablet Q12HR OBDULIA Administration Aspirin 81 mg 03/18/24 09:00 03/20/24 08:36 Aspirin 81 Mg Enteric Tablet PO 81 mg QAM OBDULIA Administration Atenolol 25 mg 03/18/24 09:00 03/20/24 08:36 Atenolol 25 Mg Tablet PO 25 mg DAILY OBDULIA Administration Atorvastatin Calcium 20 mg 03/18/24 09:00 03/20/24 08:36 Atorvastatin 20 Mg Tablet PO 20 mg DAILY OBDULIA Administration Celecoxib 200 mg 03/18/24 09:00 03/20/24 08:36 Celecoxib 200 Mg Capsule PO 200 mg DAILY OBDULIA Administration Dextrose 12.5 gm 03/16/24 17:52 Dextrose 50% 25 Gm/50 Ml Syringe IV PUSH PRN PRN Hypoglycemia Protocol Dextrose 12.5 gm 03/17/24 12:08 Dextrose 50% 25 Gm/50 Ml Syringe IV PUSH PRN PRN Hypoglycemia Protocol Enoxaparin Sodium 40 mg 03/17/24 09:00 03/20/24 08:36 Enoxaparin 40 Mg/0.4 Ml Syringe SUB-Q 40 mg DAILY OBDULIA Administration Glucagon 1 mg 03/16/24 17:52 Glucagon For Inj 1 Mg Vial IM PRN PRN Hypoglycemia Protocol Glucagon 1 mg 03/17/24 12:08 Glucagon For Inj 1 Mg Vial IM PRN PRN Hypoglycemia Protocol Glucose 15 gm 03/16/24 17:52 Glucose Oral Gel 15 Gm Of Glucse In 37.5 Gm Tube PO PRN PRN Hypoglycemia Protocol Glucose 15 gm 03/17/24 12:08 Glucose Oral Gel 15 Gm Of Glucse In 37.5 Gm Tube PO PRN PRN Hypoglycemia Protocol Dextrose 1,000 mls @ 100 mls/hr 03/16/24 17:52 Dextrose 5% 1,000 Ml IVPB PRN PRN Hypoglycemia Protocol Levetiracetam 750 mg/ Dextrose 107.5 mls @ 430 mls/hr 03/17/24 06:00 03/21/24 05:43 IVPB 430 mls/hr Q12H OBDULIA Administration Dextrose 1,000 mls @ 100 mls/hr 03/17/24 12:08 Dextrose 5% 1,000 Ml IVPB PRN PRN Hypoglycemia Protocol Acyclovir Sodium 1,000 mg/ 270 mls @ 250 mls/hr 03/18/24 05:00 03/21/24 05:20 Dextrose IVPB Infused Q12H OBDULIA Infusion Insulin Aspart 2 - 5 units 03/17/24 17:00 03/20/24 17:26 Insulin Aspart (*Bkc) 100 Units/Ml SUB-Q Not Given TIDWM [facility] Protocol Ondansetron HCl 4 mg 03/16/24 17:50 Ondansetron Inj 4 Mg/2 Ml Vial IV PUSH Q4H PRN Nausea Sodium Chloride 10 ml 03/17/24 22:00 03/21/24 05:37 Saline Lock Flush IV PUSH 10 ml Q8HR OBDULIA Administration Sodium Chloride 10 ml 03/17/24 20:10 Saline Lock Flush IV PUSH PRN PRN Flush Radiology Results: ITS Impressions Head CT 03/16/24 10:24 IMPRESSION: 1. Normal aging brain. Chest CTA 03/16/24 16:42 IMPRESSION: 1. Left lower lobe pneumonia. 2. No pulmonary embolism. 3. Herniation of the stomach into the chest. 4. Prominent pulmonary artery which may indicate pulmonary hypertension. Head/Neck CTA 03/16/24 17:01 IMPRESSION: 1. CTA head and neck. Percent stenosis per NASCET criteria is 0%. 2. Prominent area in the anterior left cavernous sinus which may be an aneurysm. Further evaluation advised. 3. Absent left A1 segment. 4. Posterior communicating arteries continue otherwise posterior cerebral arteries. 5. No definite evidence of occlusion or significant stenosis in the intracerebral arteries although the distal branches of the posterior cerebral arteries are not very clear. Brain MRI 03/17/24 13:38 IMPRESSION: 1. Swelling and signal abnormality involving anteromedial left temporal lobe suspicious for HSV encephalitis. 2. 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 ADDENDUM: 03/17/24 1351 I discussed this result with Edie Stuart. Lumbar Puncture Fluoroscopy 03/18/24 12:35 IMPRESSION: 1. Successful fluoro-guided lumbar puncture. Chest X-Ray 03/19/24 10:01 IMPRESSION: 1. Mild atelectasis in left lower lung zone. 2. Large hiatal hernia. Labs Labs: Laboratory Results - last 24 hr 03/20/24 03/20/24 03/20/24 06:54 08:00 11:33 WBC 7.2 RBC 3.16 L Hgb 10.3 L Hct 30.6 L MCV 96.8 MCH 32.6 MCHC 33.7 RDW 14.1 Plt Count 195 MPV 9.9 Immature Gran % (Auto) 0.6 H Neut % (Auto) 63.7 Lymph % (Auto) 19.6 [place] % (Auto) 11.6 H Eos % (Auto) 3.8 Baso % (Auto) 0.7 Lymph # (Auto) 1.40 [place] # (Auto) 0.8 H Eos # (Auto) 0.3 Baso # (Auto) 0.1 Abs Immat Gran (auto) 0.04 H Absolute Neuts (auto) 4.6 Absolute Nucleated RBC 0.000 Nucleated RBC % 0.0 Sodium 139 Potassium 3.6 Chloride 106 Carbon Dioxide 26 Anion Gap 7 BUN 26 H Creatinine 0.90 Estim Creat Clear Calc 52 Estimated GFR 60 Glucose 104 POC Capillary Glucose 96 118 H Calcium 8.5 Total Bilirubin 0.6 AST 34 ALT 15 Alkaline Phosphatase 50 Total Protein 5.0 L Albumin 2.7 L 03/20/24 03/20/24 16:00 20:53 WBC RBC Hgb Hct MCV MCH MCHC RDW Plt Count MPV Immature Gran % (Auto) Neut % (Auto) Lymph % (Auto) [place] % (Auto) Eos % (Auto) Baso % (Auto) Lymph # (Auto) [place] # (Auto) Eos # (Auto) Baso # (Auto) Abs Immat Gran (auto) Absolute Neuts (auto) Absolute Nucleated RBC Nucleated RBC % Sodium Potassium Chloride Carbon Dioxide Anion Gap BUN Creatinine Estim Creat Clear Calc Estimated GFR Glucose POC Capillary Glucose 145 H 114 H Calcium Total Bilirubin AST ALT Alkaline Phosphatase Total Protein Albumin Quality VTE Prophylaxis VTE prophylaxis: pharmacologic ordered
[2024-03-21 07:24] LABS: Basophils Absolute Auto 0.1 K/mm3 (0.0-0.1); Basophils Percent Auto 0.7 % (0.2-1.2); Eosinophils Absolute Auto 0.4 K/mm3 (0-0.3); Eosinophils Percent Auto 5.2 % (0-4.4); Hematocrit 32.5 % (37.0-47.0); Immature Granulocyte Absolute 0.06 K/mm3 (0.00-0.031); Immature Granulocyte Percent A 0.8 % (0-0.5); Lymphocytes Absolute Auto 1.12 K/mm3 (0.9-3.2); Lymphocytes Percent Auto 14.9 % (18.3-44.2); Mean Corpuscular HGB Conc 33.8 g/dl (32-36); Mean Corpuscular Hemoglobin 33.2 pg (26-34); Mean Corpuscular Volume 98.2 fl (80-100); Mean Platelet Volume 9.9 fl (7.4-10.4); Monocytes Absolute Auto 0.8 K/mm3 (0.1-0.6); Monocytes Percent Auto 10.4 % (2.6-8.5); Neutrophils Absolute Auto 5.1 K/mm3 (1.3-6.7); Platelet Count Result 183 k/mm3 (150-375); Red Blood Count 3.31 M/mm3 (4.2-5.4); Red Cell Distribution Width 14.4 % (11.5-14.5); White Blood Count 7.5 K/mm3 (4.5-10.0)
[2024-03-21 07:49] LABS: Alanine Aminotransferase 15 U/L (6-35); Albumin Level 2.8 g/dL (3.5-5.1); Alkaline Phosphatase 59 U/L (38-126); Anion Gap 5 mmol/L (4-12); Aspartate Amino Transferase 32 U/L (14-36); Bilirubin,Total 0.6 mg/dL (0.2-1.3); Blood Urea Nitrogen 18 mg/dL (7-17); Calcium 8.4 mg/dL (8.4-10.2); Carbon Dioxide 27 mmol/L (22-30); Chloride 106 mmol/L (98-107); Estimated CRCL calculation 52 ml/min; Estimated Glomerular Filt Rate 60; Glucose 93 mg/dL (65-110); Potassium 3.5 mmol/L (3.4-5.0); Sodium 138 mmol/L (137-145)
[2024-03-21 08:10] LABS: Glucose Point of Care 93 mg/dl (65-105)
[2024-03-21] MEDS: AMOXICILLIN/CLAVULANATE K 875-125 MG TAB 1 TABLET PO (08:26)
[2024-03-21] MEDS: CELECOXIB 200 MG CAPSULE PO (08:26)
[2024-03-21] MEDS: ASPIRIN 81 MG ENTERIC TABLET PO (08:26)
[2024-03-21] MEDS: ATORVASTATIN 20 MG TABLET PO (08:26)
[2024-03-21] MEDS: atenoloL 25 MG TABLET PO (08:26)
[2024-03-21] MEDS: ENOXAPARIN 40 MG/0.4 ML SYRINGE SUB-Q (08:26)
[2024-03-21 11:35] LABS: Glucose Point of Care 106 mg/dl (65-105)
--- NOTE | 2024-03-21 15:26 | P.PNINF_ITS ---
Pharmacy ID Consult - Stewardship Interventions Type of Interventions: Discharge Recommendation Pharmacy ID Note: Subjective Pharmacy was consulted by Carissa Osborne regarding infectious diseases for Colette Espino. Colette Espino is a 78 year old F with concerns regarding HSV enceph alitis. Background The patient is currently receiving Acyclovir IV 10 mg/kg q12h - D4. Patient underwent LP on 03/18 with bcx on 03/16 - all are still preliminary and showing NGTD. All relevant serology in LP regarding HSV encephalitis is still pending. Imaging shows high likelihood of encephalitis Microbiology 03/18/24 12:13 Cerebral Spinal Fluid Acid Fast Bacilli Culture - Preliminary 03/16/24 14:49 Blood Blood Culture - Preliminary 03/16/24 13:44 Blood Blood Culture - Preliminary 03/18/24 12:13 Cerebral Spinal Fluid Gram Stain - Final Laboratory Tests 03/18/24 03/18/24 03/18/24 12:07 12:07 12:13 CSF RBC 9 H CSF Tot Nucleated Cells 1 CSF Lymphocytes 47 CSF Monocytes CSF Macrophages 2 CSF Other Cells 25 CSF Glucose 60 CSF Total Protein 61 H 03/18/24 12:13 CSF RBC CSF Tot Nucleated Cells CSF Lymphocytes CSF Monocytes 25 CSF Macrophages CSF Other Cells CSF Glucose CSF Total Protein Assessment/Recommendation/Discussion Spoke briefly with provider, continue to follow as LP results and serology like HSV PCR come back - current treatment plan for HSV Encephalitis will be acyclovir 10 mg/kg q8h (adjusted for pt. eCrCl coming to 52 mL/min above the threshold of 50 mL/min). This course can be for 14-21 days, however given the patient's immunocompromise with RA per previous provider - 21 day course seems desirable. Will continue to follow peripherally for renal function and serologies, but will sign off at this time. Please reconsult should additional information come to light. Thank you for the interesting consult. Best Levine, PharmD Infectious Disease/Antimicrobial Stewardship Pharmacist 03/21/24; 1526 WBC 7.5 K/mm3 (4.5-10.0) 03/21/24 06:45 Creatinine 0.90 mg/dL (0.7-1.0) 03/21/24 06:45 Estim Creat Clear Calc 52 ml/min 03/21/24 06:45
[2024-03-21 16:40] LABS: Glucose Point of Care 108 mg/dl (65-105)
[2024-03-21 20:46] LABS: Glucose Point of Care 106 mg/dl (65-105)
[2024-03-21] MEDS: levETIRAcetam Tablet 250 MG, levETIRAcetam Tablet 500 MG 750 MG PO (20:52)
[2024-03-22] VITALS (7 sets, daily range): BP systolic 106–130; BP diastolic 60–90; PULSE 62–78; RESP 16–20; TEMP 36.5–36.9; O2SAT 96
[2024-03-22] MEDS: SALINE LOCK FLUSH 10 ML IV PUSH ×2 (06:05→15:48)
[2024-03-22] MEDS: ACYCLOVIR SODIUM IVPB 1,000 MG in DEXTROSE 5% IN WATER 250 ML 250 MG IVPB ×2 (07:33→15:48)
[2024-03-22 07:53] LABS: Basophils Absolute Auto 0.1 K/mm3 (0.0-0.1); Basophils Percent Auto 0.7 % (0.2-1.2); Eosinophils Absolute Auto 0.3 K/mm3 (0-0.3); Eosinophils Percent Auto 3.7 % (0-4.4); Hematocrit 31.3 % (37.0-47.0); Hemoglobin 10.2 g/dL (12.0-15.0); Immature Granulocyte Absolute 0.08 K/mm3 (0.00-0.031); Immature Granulocyte Percent A 0.9 % (0-0.5); Lymphocytes Absolute Auto 1.16 K/mm3 (0.9-3.2); Lymphocytes Percent Auto 12.8 % (18.3-44.2); Mean Corpuscular HGB Conc 32.6 g/dl (32-36); Mean Corpuscular Hemoglobin 32.3 pg (26-34); Mean Corpuscular Volume 99.1 fl (80-100); Mean Platelet Volume 10.3 fl (7.4-10.4); Monocytes Absolute Auto 0.8 K/mm3 (0.1-0.6); Monocytes Percent Auto 8.6 % (2.6-8.5); Neutrophils Absolute Auto 6.6 K/mm3 (1.3-6.7); Neutrophils Percent Auto 73.3 % (45.5-73.1); Platelet Count Result 187 k/mm3 (150-375); Red Blood Count 3.16 M/mm3 (4.2-5.4); Red Cell Distribution Width 14.3 % (11.5-14.5)
[2024-03-22 08:07] LABS: Alanine Aminotransferase 15 U/L (6-35); Albumin Level 2.8 g/dL (3.5-5.1); Alkaline Phosphatase 53 U/L (38-126); Anion Gap 6 mmol/L (4-12); Aspartate Amino Transferase 29 U/L (14-36); Bilirubin,Total 0.7 mg/dL (0.2-1.3); Blood Urea Nitrogen 16 mg/dL (7-17); Calcium 8.5 mg/dL (8.4-10.2); Carbon Dioxide 27 mmol/L (22-30); Chloride 105 mmol/L (98-107); Estimated CRCL calculation 47 ml/min; Estimated Glomerular Filt Rate 53; Glucose 79 mg/dL (65-110); Potassium 3.6 mmol/L (3.4-5.0); Sodium 138 mmol/L (137-145)
[2024-03-22] MEDS: atenoloL 25 MG TABLET PO (08:14)
[2024-03-22] MEDS: ATORVASTATIN 20 MG TABLET PO (08:14)
[2024-03-22] MEDS: ASPIRIN 81 MG ENTERIC TABLET PO (08:14)
[2024-03-22] MEDS: levETIRAcetam Tablet 250 MG, levETIRAcetam Tablet 500 MG 750 MG PO (08:15)
[2024-03-22] MEDS: CELECOXIB 200 MG CAPSULE PO (08:15)
[2024-03-22] MEDS: ENOXAPARIN 40 MG/0.4 ML SYRINGE SUB-Q (08:16)
[2024-03-22 08:28] LABS: Glucose Point of Care 107 mg/dl (65-105)
[2024-03-22 11:32] LABS: Source NOT GIVEN
--- NOTE | 2024-03-22 13:53 | P.DS_ITS ---
DS: Admitting Diagnosis Discharge Date 03/22/24 Admitting Diagnosis Seizure DS: Discharge Diagnosis Discharge Diagnosis (1) Seizure: Code(s): R56.9 - Unspecified convulsions Status: Acute Assessment and Plan: -- reported seizure activity on arrival requiring intubation for airway prot ection, initially on propofol for sedation and anticonvulsant. patient woke up while in the ED and was extubated on 2 L nasal cannula as she was also following commands and communicating. * head CT was negative for any acute intracranial findings * head/neck CTA showed 0% stenosis in bilateral carotid bulbs, prominent area in the anterior left cavernous sinus which may be an aneurysm, absent left A1 segment, no definite evidence of occlusion or significant stenosis in the intracerebral arteries although the distal branches of the posterior cerebral arteries were not clear on this examination * urine drug screen was positive for benzodiazepines, ETOH less than 10 * MRI of the brain and brainstem with and without contrast ordered * will also obtain echocardiogram with bubble study * neurology consulted * PT/OT/ speech therapy ordered * NPO except for ice chips for possible swallow study * loading dose of Keppra was given while in the ED * continue Keppra and aspirin * Continue seizure precautions * continue neuro checks * Keep section near by at bedside 03/17/24 * MRI brain showed: Swelling and signal abnormality involving anteromedial left temporal lobe suspicious for HSV encephalitis. 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 03/20/2024: * LP clear, colorless and appropriate pressure * HS the culture sent could take up to 7 more days for results * Patient responding well to IV acyclovir * Renal function continue to improve if stable can transition back to acyclovir IV Q 8 hours in take her off renal dosing : * No recurrent seizure since admission * Will discharge on keppra 750 mg PO BID * IV changed to PO (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 * Likely cause of patient seizures * started on IV acyclovir * Order LP 03/18/24: * LP scheduled 12:00 evaluate for xanthochromia and HSV PCR * Symptoms improving * will need intermediate frame tender IV acyclovir if positive HSV 03/20/2024: * LP clear, colorless and appropriate pressure * HS the culture sent could take up to 7 more days for results * Patient responding well to IV acyclovir * Renal function continue to improve and stable can transition back to acyclovir IV Q 8 hours and take her off renal dosing * PICC in place for halfway will need 21 days due to immunocompromised with rheumatoid arthritis 03/21/24: * CSF cytology shows no malignancy, scattered mononuclear cells * Gram stain final, no organism seen * CSF culture moderate WBC, no organisms seen. No AFB seen. * HSV PCR pending * Planning for Acyclovir 1 gram TID IVPB for a total of 21 days. End of treatment on 04/07/24. Patient is planning on going home with home health. 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 * requesting transfer to [facility] 03/18/2024 * LP transfer TBD no need if no rupture can follow-up outpatient 03/20/24: * Spoke with neuro surgery, neurologist and vascular services at [facility] no need for transfer at this time can follow up outpatient LP showed no Xanthochromia clear and colorless with appropriate pressure 03/21/24: * Spoke with Dr Humberto, neurosurgery here at [place] and she would agree with neurosurgery outpatient follow up for saccular aneurysm. She cannot appreciate an obvious mass on imaging but would recommend repeat MRI after anti-viral treatment and follow up with neurosurgery as an outpatient. (4) Pneumonia: Code(s): J18.9 - Pneumonia, unspecified organism Status: Acute Assessment and Plan: * CTA of the chest revealed left lower lobe pneumonia, herniation of the stomach into the chest, negative for PE, prominent pulmonary artery which may indicate pulmonary hypertension * chest x-ray showing airspace opacities in the left mid and lower lung zones consistent with pneumonia * patient was given Rocephin, vancomycin, and ampicillin while in the ED * MRSA was negative and vancomycin was discontinued * will change antibiotic to Rocephin and azithromycin * White blood cell count 9.6 * blood cultures NGTD * 03/21/24 completed 5 days of Augmentin and Azithromycin for pneumonia (5) Non-ST elevation [place] (NSTEMI): Code(s): I21.4 - Non-ST elevation (NSTEMI) myocardial infarction Status: Acute Assessment and Plan: * troponin 0.361 at 11:02 a.m. today * will repeat troponin now * cardiology consulted * EKG showing sinus tachycardia with a rate of 100 with a QTC of 429 03/17/24: * Troponin trending up 1.110 peaked trending down * Cardiology recommendations appreciated * Echo pending 03/18/24: * Echo no significant wall motion or valvular abnormalities 03/21/24: * possibly NSTEMI vs demand from seizure. * Continue ASA 81 mg daily, atorvastatin 40 mg daily * Continue atenolol and lisinopril (6) Elevated d-dimer: Code(s): R79.89 - Other specified abnormal findings of blood chemistry Status: Acute Assessment and Plan: * D-dimer 3.21 * CTA of the chest was negative for PE RULED OUT Plan Code status: DNR/DNI DVT prophylaxis: SCD Stress ulcer prophylaxis: NA PT/OT notes: PT/OT pending Disposition: Patient continues admission to the medical unit for further evaluation and treatment of new onset seizures secondary to suspicious of HSV encephalitis. MRI with incidental finding as showing and 12 mm aneurysm in the left carotid. Previous clinician had spoken with Neurology, Neurosurgery, and vascular at [facility] no need for transfer at this time. Patient wanting to return home with home health services will need 21 total days of IV acyclovir through 04/07/24 PICC line already placed. DS: Summary Hospital Course Reason for hospitalization: Seizure, encephalitis Hospital Course: This is an 78-year-old female with a past medical history significant for rheumatoid arthritis, gout, hypertension, vitamin-D deficiency who presented to the emergency room with reported seizure activity. EMS found her unresponsive and was transporting her to the emergency room when she had another seizure while in the EMS rig. Upon arrival to the hospital patient was not responsive with concerns for airway protection and then was intubated. She was started on propofol for sedative as this has anticonvulsant properties. A code stroke was initiated. Patient was sent for a CT of the head which was negative for any acute intracranial process, showed normal aging brain. Chest x-ray after intubation shown endotracheal tube tip in the right main stem bronchus, airspace opacities in left mid and lower lung zone, blunting of left lateral closer phrenic angle, large hiatal hernia. Chest CTA showed left lower lobe pneumonia, was negative for PE, herniation of the stomach into the chest, prominent pulmonary artery which may indicate pulmonary hypertension. Head and neck CTA showed prominent area in the anterior left cavernous sinus which may be an aneurysm, absent left A1 segment, no definite evidence of occlusion or significant stenosis in the intracerebral arteries although the distal branches of the posterior cerebral arteries are not very clear. Initial labs showed a normal white blood cell count of 9.6, bicarb 21, anion gap 13, EGFR 53, lactic acid was 1.5, troponin 0.361, TSH 0.910. A UA was obtained and showed 1+ urine protein, 3+ urine glucose, trace urine ketone, 11-20 urine cast. MRSA was obtained and was negative. Urine drug screen was positive for benzodiazepines. considering we did not have neurology coverage here at [place] today the ED physician called neurologist on-call at [facility] who states that the patient would likely need a continuous EEG and that would not be possible at their facility. The ED physician then called [place] and did get an accepting physician Dr. Harris however there would be a delay in availability of a bed. Patient then reportedly woke up on the ventilator, was trying to communicate, and was following commands. Sedation was turned off and patient was extubated. The ED physician spoke with the and the patient and it was agreed to make her DNR/ DNI status as this was originally the patient's wishes before admission. NIH stroke scale after extubation was 8. considering the patient was no longer on the ventilator they then canceled to transfer to [place] for an ICU bed. Patient was then given a dose of aspirin and a loading dose of Keppra. She was admitted to IMU status for further workup. During her hospitalization neurology was consulted for new onset of seizure. She was started on Keppra 750 mg p.o. b.i.d.. MRI was performed and showed swelling and signal abnormality involving anteromedial left temporal lobe suspicious for HSV encephalitis. As well as a 12 mm saccular aneurysm of the supraclinoid left ICA. The patient was started on IV acyclovir 1 g b.i.d., renally dosed. Lumbar puncture was performed. CSF Gram stain with no organisms seen, CSF culture with no organisms seen, and AFB culture and smear preliminary with no AFB seen. CSF was clear, colorless without xanthochromia. Plethora of of CSF studies remain in process. CSF cytology showed scattered mononuclear cells and negative for malignancy. Blood cultures were negative. A midline IV was placed for her to receive acyclovir 1 g IV piggyback t.i.d. through 04/07/2024. Her creatinine clearance improved during her hospitalization and her acyclovir was able to be increased to t.i.d. dosing. Her family friend Mitzy, and neighbor was agreeable to learn how to administer IV antibiotics with home health services. Her methotrexate was held on discharge until follow up with neurology, neurosurgery, and PCP. She had an EEG performed which was normal. Neurology mentioned consideration possibility of a nonenhancing tumor and suggested a neuro surgical consultation as an outpatient. They recommended continuing acyclovir and anticonvulsants at discharge. Patient was also found to have an incidental finding of a 12 mm saccular aneurysm of supraclinoid left ICA. This should also be followed by Neurosurgery. Neurosurgery, Neurology, and vascular services at [facility] were contacted by previous provider and there was no need for transfer at this time as the patient continued to improve with IV acyclovir and stable cerebral aneurysm. Patient was asked to follow-up with neurology in the next few weeks. I called and requested a referral to neurosurgeon at [facility] as this is where the patient prefers to receive her care, her son also wanted her to see a neurosurgeon within the [facility] system. Hospital information was faxed during this admission to [facility] neuro surgery at fax [phone]. I contacted her PCP office as well and requested a formal referral be sent from their office to Neurosurgery as well. She did have an VALENTIN on admission which was thought to be related to low blood pressures on admission. Her blood pressure medications were held and her creatinine improved. Cardiology was consulted due to elevated troponin without chest pain. Cardiology felt the troponin was likely a type 2 infarction versus demand from seizure. They recommended aspirin 81 mg daily and atorvastatin 40 mg daily. Echocardiogram was performed and showed no significant wall motion abnormalities and a preserved ejection fraction. He also recommended continuing her atenolol and lisinopril. Her triamterene-hydrochlorothiazide was held at discharge until follow up with PCP. PT and OT saw her while she was inpatient and recommended home health therapy. Speech therapy also was ordered and recommended continued therapy as an outpatient 3-5 days a week. The patient difficult word finding and recent short-term memory loss. Overall she did well and was discharged in stable condition with strict instructions to call 911 for symptoms of stroke or seizure. Plan of care was discussed with her son, Colton. Time Spent with Patient Time attestation: Total time spent providing and/or coordinating discharge services:90 Exam Narrative: General: appears comfortable, in no acute distress Respiratory: breathing is unlabored with even chest rise/fall, lungs are clear without wheezing, rhonchi, and crackles Cardiovascular: Rate and rhythm regular, normal s1s2, no murmur Abdomen: Soft, round, non-tender, active bowel sounds Extremities: No cyanosis, edema, clubbing. Pulses 2/2 Neuro: A&O x 4, slow recall, right lateral gaze nystagmus. Skin: Warm, dry, intact DS: Data Data Completed and Pending Completed studies during hospitalization: Pending at discharge 03/17/24 16:20 Cytology [PTH] Routine Labs on day of discharge: Labs from last 24 hours 03/22/24 03/22/24 03/21/24 08:24 07:17 20:32 WBC 9.0 RBC 3.16 L Hgb 10.2 L Hct 31.3 L MCV 99.1 MCH 32.3 MCHC 32.6 RDW 14.3 Plt Count 187 MPV 10.3 Immature Gran % (Auto) 0.9 H Neut % (Auto) 73.3 H Lymph % (Auto) 12.8 L Garfield % (Auto) 8.6 H Eos % (Auto) 3.7 Baso % (Auto) 0.7 Lymph # (Auto) 1.16 Garfield # (Auto) 0.8 H Eos # (Auto) 0.3 Baso # (Auto) 0.1 Abs Immat Gran (auto) 0.08 H Absolute Neuts (auto) 6.6 Absolute Nucleated RBC 0.000 Nucleated RBC % 0.0 Sodium 138 Potassium 3.6 Chloride 105 Carbon Dioxide 27 Anion Gap 6 BUN 16 Creatinine 1.00 Estim Creat Clear Calc 47 Estimated GFR 53 L Glucose 79 POC Capillary Glucose 107 H 106 H Calcium 8.5 Total Bilirubin 0.7 AST 29 ALT 15 Alkaline Phosphatase 53 Total Protein 5.0 L Albumin 2.8 L CSF Lactic Acid Herpes Virus Source Herpes Simplex Culture 03/21/24 03/18/24 03/18/24 16:38 12:13 12:07 WBC RBC Hgb Hct MCV MCH MCHC RDW Plt Count MPV Immature Gran % (Auto) Neut % (Auto) Lymph % (Auto) Garfield % (Auto) Eos % (Auto) Baso % (Auto) Lymph # (Auto) Garfield # (Auto) Eos # (Auto) Baso # (Auto) Abs Immat Gran (auto) Absolute Neuts (auto) Absolute Nucleated RBC Nucleated RBC % Sodium Potassium Chloride Carbon Dioxide Anion Gap BUN Creatinine Estim Creat Clear Calc Estimated GFR Glucose POC Capillary Glucose 108 H Calcium Total Bilirubin AST ALT Alkaline Phosphatase Total Protein Albumin CSF Lactic Acid 17.5 Herpes Virus Source Not given Herpes Simplex Culture Not isolated Preliminary micro results at discharge 03/18/24 12:13 Acid Fast Bacilli Culture - Preliminary Cerebral Spinal Fluid Discharge Plan Discharge Attending physician on discharge: Sobeida Augustin Consulting providers: Prashant Castellanos; Janusz Danielle; Oscar More Discharging Clinician: Shirin Osborne Anticipated Discharge Date/Time: 03/22/24 13:12 Patient Disposition: Home Health Service Activity: september shower Diet: regular Discharge Instructions: Per Care Coordination RN please fax discharge instructions to Dr. Telma John office. Fax number [phone] Per Care Coordination Patient has a scheduled follow up appointment with Dr. John on April 04 at 11:15 am. Please inquire about continuing with speech therapy, PT, and OT with home health. You were admitted after having a seizure. An MRI was performed and showed swelling and abnormality concerning for HSV encephalitis. Neurology was consulted and you were started on Keppra for seizure prevention. Your also started on IV acyclovir for presumed encephalitis. You underwent a lumbar puncture and studies are still pending. There is a concern for possibility of a nonenhancing tumor that could have caused your seizure. Neurology recommends follow-up with neuro surgery and repeating an MRI and 6 weeks. I have called her primary care's office and left a message on the referral line requesting that your records be sent to [facility] neurosurgery at [facility] to fax [phone]. We also had to fill out a release of records while hospitalized and sent your records from this admission to both your primary care provider's office and neurosurgery office. Your renal function was elevated on admission. We held your triamterene- hydrochlorothiazide and your renal function has improved. Your blood pressures are within a desired range. You can continue with your atenolol, lisinopril, and Jardiance. Please hold the triamterene-hydrochlorothiazide until you see your doctor at follow up. If you notice that you are having increased swelling in your lower extremities this is likely from holding this medication. Please notify your home health nurse or call your doctor. Home health has been established and will be seeing you within 24 hours of discharge. If you have any issues with your IV antibiotics please contact home health care company. Please monitor for signs and symptoms of infection including fever, chills, general weakness, chest pain, shortness a breath, or abdominal pain. Should monitor for symptoms of stroke including difficulty with word finding (worse than now), slurred speech, vision changes, unilateral weakness, or extreme headache. Or recurrent seizure. Should you experience he symptoms please call 911. You have a follow-up appointment with Dr. John on April 04 at 11:15 a.m.. If you do not hear back from neuro surgeries office with a follow-up appointment in the next 1-2 weeks please contact your primary care provider's office to make sure the referral was sent. Brain MRI IMPRESSION: 1. Swelling and signal abnormality involving anteromedial left temporal lobe suspicious for HSV encephalitis. 2. 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 Patient Instructions: Antibiotic Form, Aspirin (By mouth), Atorvastatin (By mouth), Levetiracetam (By mouth), Viral Encephalitis (DC), New-Onset Seizure in Adults (GEN) Stand Alone Forms: General Discharge Information Follow-up/Referrals: DanielaTelma MD [Primary Care Provider] - Janusz Danielle MD [Physician] - Call for Appointment Cely Langley MD [Physician] - Discharge Medications: New aspirin 81 mg Tablet,Delayed Release (Dr/Ec) 81 mg PO QAM Qty: 90 0RF atorvastatin 20 mg Tablet 20 mg PO DAILY Qty: 90 0RF levetiracetam 750 mg Tablet 750 mg PO Q12HR Qty: 180 0RF Continued atenolol 25 mg tablet 25 mg PO DAILY allopurinol 100 mg tablet 100 mg PO DAILY [id number] Tablet 1 tablet PO DAILY lisinopril 40 mg tablet 40 mg PO DAILY Jardiance 10 mg tablet 10 mg PO DAILY celecoxib [Celebrex] 200 mg Capsule 200 mg PO DAILY coQ10 (ubiquinol) 200 mg Capsule 200 mg PO DAILY Alive Women's Multivitamin 4.5 mg iron- 120 mcg-60 mcg Tablet 1 tablet PO DAILY esomeprazole magnesium 40 mg capsule,delayed release(DR/EC) 40 mg PO DAILY Held methotrexate sodium 2.5 mg tablet 2.5 mg PO DAILY Hold Instructions: Resume on 05/10/24. Please hold until you have been seen with neurology at follow up triamterene-hydrochlorothiazid 75-50 mg tablet 1 tablet PO DAILY Hold Instructions: Resume on 04/04/24. hold until seeing your PCP. This may not need to be resumed. Date of admission: 03/17/24 07:18 Primary Care Provider: DanielaTelma Admitting Provider: Primo Thomas Attending physician on admission: Shirin Osborne Condition: Stable Quality VTE Prophylaxis VTE prophylaxis: pharmacologic ordered Hospitalist MIPS Heart Failure (Exclusion) Patient has history of Heart Transplant or Left Ventricular Assistive Device?: No IF YES, STOP HERE Heart Failure (Qualifier) Patient has current or prior documentation of LVEF less than or equal to 40%, or mod/servere depressed LVSF?: No IF NO, STOP HERE
[2024-03-22 18:37] LABS: West Nile Virus, IgM <0.90 index
[2024-03-22 22:29] LABS: VDRL Quantitative CSF NON-REACTIVE
[2024-03-23 16:53] LABS: Lyme Disease Ab (IgM), Blot NEGATIVE (NEGATIVE); Lyme Disease Ab(IgG), Blot NEGATIVE (NEGATIVE)
[2024-03-24 18:49] LABS: Varicella IgM Antibody 0.39
[2024-03-24 20:08] LABS: CMV DNA Quant PCR IU/mL Not Detected (Not Detected); Cytomegalovirus DNA Quant PCR Not Detected Log IU/mL (Not Detected); Cytomegalovirus DNA Source Plasma
[2024-03-26 19:24] LABS: Coccidioides Ab to F Ag (IgG) NEGATIVE; Coccidioides Ab to TP Ag (IgM) NEGATIVE
[2024-03-27 11:39] LABS: Albumin, Serum 3.2; Immunoglobulin G, Serum 633
[2024-03-27 11:40] LABS: IgG Index, CSF 0.57; Synthesis Rate IgG, CSF -0.4
[2024-03-27 11:41] LABS: IgG, CSF 1.8; Oligoclonal Bands (IgG), CSF Absent
== END 2024-03-22 17:15 | disposition home health service (06) | DRG 97 ==
LOC: ANHED 11:29 → ANHIMU 18:22 → ANH3MEDSUR 03-19 13:54
PROVIDERS: Internal Medicine Cardiovascular Disease; Nurse Practitioner Acute Care; Nurse Practitioner Family; Admitting Provider Internal Medicine; Emergency Provider Student in an Organized Health Care Education/Training Program; PCP Family Medicine; Visit Provider Nurse Practitioner Acute Care
DX: B00.4 Herpesviral encephalitis (principal); I21.A1 Myocardial infarction type 2; J18.9 Pneumonia, unspecified organism; N17.9 Acute kidney failure, unspecified; E55.9 Vitamin D deficiency, unspecified; I10 Essential (primary) hypertension; M06.9 Rheumatoid arthritis, unspecified; M10.9 Gout, unspecified; Z66 Do not resuscitate; Z79.84 Long term (current) use of oral hypoglycemic drugs; Z87.891 Personal history of nicotine dependence; R79.89 Other specified abnormal findings of blood chemistry; I67.1 Cerebral aneurysm, nonruptured; F03.90 Unspecified dementia, unspecified severity, without behavioral disturbance, psychotic disturbance, mood disturbance, and anxiety
CPT/HCPCS: 31500; 36415; 36569; 36600; 62328; 70450; 70496; 70498; 70553; 71045; 71275; 80053; 80061; 80143; 80179; 80307; 81001; 82040; 82042; 82077; 82375; 82550; 82784; 82805; 82945; 82948; 83036; 83050; 83605; 83735; 83873; 83916; 84157; 84443; 84484; 85018; 85025; 85380; 85610; 85730; 86403; 86592; 86617; 86635; 86695; 86696; 86787; 86788; 87015; 87040; 87070; 87102; 87116; 87206; 87255; 87497; 87529; 87641; 87798; 88108; 89051; 92507; 92523; 93005; 93306; 94002; 94640; 95816; 96365; 96366; 96367; 96375; 96376; 97110; 97116; 97161; 97165; 97530; 97535; 99291; A9270; A9577; C1751; G0378; J0133; J0290; J0456; J0696; J1650; J1953; J2250; J2310; J2470; J2704; J3370; J7060; Q9967

== ENCOUNTER 2024-03-28 17:18 | Emergency (ER) | payer MEDICARE, OTHER, SELFPAY ==
[2024-03-28 17:34] VITALS: BP 160/96; PULSE 85; O2SAT 96
--- NOTE | 2024-03-28 18:04 | ED_ITS ---
HPI - General Adult General Chief complaint: Unspecified Stated complaint: leaking PICC line? Time Seen by Provider: 03/28/24 17:34 History of Present Illness HPI narrative: patient presents here due to leaking around her PICC line. She is on acyclovir, receiving every 8 hours. Denies any other complaints. Related Data Home Medications Medication Instructions Recorded Confirmed allopurinol 100 mg tablet 100 mg PO DAILY 03/16/24 03/16/24 atenolol 25 mg tablet 25 mg PO DAILY 03/16/24 03/16/24 fyntimd-orjcwgahi-evdo tablet 1 tablet PO DAILY 03/16/24 03/16/24 celecoxib 200 mg capsule (Celebrex) 200 mg PO DAILY 03/16/24 03/16/24 coQ10 (ubiquinol) 200 mg capsule 200 mg PO DAILY 03/16/24 03/16/24 empagliflozin 10 mg tablet 10 mg PO DAILY 03/16/24 03/16/24 (Jardiance) lisinopril 40 mg tablet 40 mg PO DAILY 03/16/24 03/16/24 methotrexate sodium 2.5 mg tablet 2.5 mg PO DAILY 03/16/24 03/16/24 mv-min-iron 4.5 mg-folic ac 120 1 tablet PO DAILY 03/16/24 03/16/24 mcg-vit K1 60 mcg-herbal no.352 tablet (Alive Women's Multivitamin) triamterene 75 1 tablet PO DAILY 03/16/24 03/16/24 mg-hydrochlorothiazide 50 mg tablet esomeprazole magnesium 40 mg 40 mg PO DAILY 03/17/24 03/17/24 capsule,delayed release Allergies Allergy/AdvReac Type Severity Reaction Status Date / Time No Known Allergies Allergy Verified 03/28/24 17:18 Review of Systems Review of Systems: All systems reviewed & are unremarkable except as noted in HPI and below PMFSH Past Medical History Medical History Arthritis Former smoker Gout Hypertension Rheumatoid arthritis Vitamin D deficiency Surgical History Surgical History H/O foot surgery History of back surgery Family History Family History Mother Dementia Father Bone cancer Sibling Myocardial infarct Social History Social History Social History: Has a son who lives in [place] Smoking packs per day: 0.5 Smoking cigarettes per day: 10.0 Years smoked: 10 Smoking pack-years: 5.00 Smoking status: Former smoker Tobacco type: cigarettes Alcohol intake: never Substance use: never Do You Feel Safe in your Home?: Yes Lack of Transportation: YES Lack of Food: Never True Current Housing: I Have Housing Concerned About Future Housing: No Difficulty Paying Gas/Electric Bills: No Difficulty Paying for Meds: No Currently Unemployed: No Education: High School Diploma/GED Difficulty w/ Childcare or Family Care: No Living arrangements: with family Additional living arrangements comments: , 61 years Spiritual care concerns: No Exam Narrative: EXAMINATION OF ORGAN SYSTEMS/BODY AREAS: Constitutional: Vital signs per nursing GENERAL:[No acute distress, non-toxic appearing.] HEAD: Normal with no signs of head trauma. EYES: EOMI, conjunctiva normal ENT: Hearing grossly intact LUNGS: Nonlabored breathing. HEART: [Regular rate and rhythm] EXT: Normal range of motion SKIN: [No rashes or lesions.] NEURO: [Alert and oriented x 3. No gross focal sensory or strength deficits.] PSYCH: Normal affect Course Vital Signs Vital signs: Vital Signs Pulse Rate 85 03/28/24 17:34 Blood Pressure 160/96 H 03/28/24 17:34 Pulse Oximetry 96 03/28/24 17:34 Pulse Rate 85 03/28/24 17:34 Blood Pressure 160/96 H 03/28/24 17:34 Pulse Oximetry 96 03/28/24 17:34 Medical Decision Making MDM Narrative Medical decision making narrative: Patient presents with PICC line malfunction. I did try to trouble shoot the line, notice that when I flushed it, fluids came out from around the insertion site, raising concern that it may not be in place. Given this, will just give patient acyclovir dose here and have her follow back up tomorrow at 8am when the PICC nurse returns. Patient and family agreeable to this plan Vital Signs Vital Signs: Vital Signs Pulse Rate 85 03/28/24 17:34 Blood Pressure 160/96 H 03/28/24 17:34 Pulse Oximetry 96 03/28/24 17:34 Pulse Rate 85 03/28/24 17:34 Blood Pressure 160/96 H 03/28/24 17:34 Pulse Oximetry 96 03/28/24 17:34 Discharge Plan Discharge Clinical Impression: PIC line (peripherally inserted central catheter) flush Patient Disposition: Home, Self-Care Condition: Stable Additional Instructions: Your PICC line is no longer working correctly. Please come back tomorrow at 8:00 a.m. to have it checked out as it may need to be replaced. You can always return to the emergency room sooner for any further issues. Prescriptions: No Action atenolol 25 mg tablet 25 mg PO DAILY allopurinol 100 mg tablet 100 mg PO DAILY [id number]-ltdcwpmdb-zvhy Tablet 1 tablet PO DAILY methotrexate sodium 2.5 mg tablet 2.5 mg PO DAILY Hold Instructions: Resume on 05/10/24. Please hold until you have been seen with neurology at follow up triamterene-hydrochlorothiazid 75-50 mg tablet 1 tablet PO DAILY Hold Instructions: Resume on 04/04/24. hold until seeing your PCP. This may not need to be resumed. lisinopril 40 mg tablet 40 mg PO DAILY Jardiance 10 mg tablet 10 mg PO DAILY celecoxib [Celebrex] 200 mg Capsule 200 mg PO DAILY coQ10 (ubiquinol) 200 mg Capsule 200 mg PO DAILY Alive Women's Multivitamin 4.5 mg iron- 120 mcg-60 mcg Tablet 1 tablet PO DAILY esomeprazole magnesium 40 mg capsule,delayed release(DR/EC) 40 mg PO DAILY aspirin 81 mg Tablet,Delayed Release (Dr/Ec) 81 mg PO QAM Qty: 90 0RF atorvastatin 20 mg Tablet 20 mg PO DAILY Qty: 90 0RF levetiracetam 750 mg Tablet 750 mg PO Q12HR Qty: 180 0RF Follow-up/Referrals: Alvaro,Telma Hamilton MD [Primary Care Provider] -
[2024-03-28] MEDS: ACYCLOVIR SODIUM IVPB (18:42)
[2024-03-28] MEDS: DEXTROSE 5% IVPB (18:42)
[2024-03-28] MEDS: WATER IVPB (18:42)
[2024-03-28 19:40] VITALS: BP 160/75; PULSE 80; RESP 16; O2SAT 95
== END 2024-03-28 20:00 | disposition home or self-care (01) ==
LOC: ANHED 18:09
PROVIDERS: Emergency Provider Emergency Medicine; PCP Family Medicine
DX: T82.534A Leakage of infusion catheter, initial encounter (principal); M19.90 Unspecified osteoarthritis, unspecified site; Z87.891 Personal history of nicotine dependence; M10.9 Gout, unspecified; I10 Essential (primary) hypertension; M06.9 Rheumatoid arthritis, unspecified; E55.9 Vitamin D deficiency, unspecified; Z79.84 Long term (current) use of oral hypoglycemic drugs; Z79.899 Other long term (current) drug therapy; Y84.8 Other medical procedures as the cause of abnormal reaction of the patient, or of later complication, without mention of misadventure at the time of the procedure
CPT/HCPCS: 96365; 99284; J0133; J7060

== ENCOUNTER 2024-03-29 07:55 | Emergency (ER) | payer MEDICARE, OTHER, SELFPAY ==
[2024-03-29 08:00] VITALS: BP 144/57; PULSE 70; RESP 18; TEMP 37; O2SAT 97
--- NOTE | 2024-03-29 08:01 | ED.GENADULT ---
HPI - General Adult General Chief complaint: Unspecified Stated complaint: PICC line leaking Time Seen by Provider: 03/29/24 07:57 History of Present Illness HPI narrative: Patient presenting with PICC line malfunction, was here yesterday, line found to be leaking, asked to come back here this morning for PICC line nurse to likely replace. No other issues Related Data Home Medications Medication Instructions Recorded Confirmed allopurinol 100 mg tablet 100 mg PO DAILY 03/16/24 03/16/24 atenolol 25 mg tablet 25 mg PO DAILY 03/16/24 03/16/24 liwemph-hqfziccvi-jyih tablet 1 tablet PO DAILY 03/16/24 03/16/24 celecoxib 200 mg capsule (Celebrex) 200 mg PO DAILY 03/16/24 03/16/24 coQ10 (ubiquinol) 200 mg capsule 200 mg PO DAILY 03/16/24 03/16/24 empagliflozin 10 mg tablet 10 mg PO DAILY 03/16/24 03/16/24 (Jardiance) lisinopril 40 mg tablet 40 mg PO DAILY 03/16/24 03/16/24 methotrexate sodium 2.5 mg tablet 2.5 mg PO DAILY 03/16/24 03/16/24 mv-min-iron 4.5 mg-folic ac 120 1 tablet PO DAILY 03/16/24 03/16/24 mcg-vit K1 60 mcg-herbal no.352 tablet (Alive Women's Multivitamin) triamterene 75 1 tablet PO DAILY 03/16/24 03/16/24 mg-hydrochlorothiazide 50 mg tablet esomeprazole magnesium 40 mg 40 mg PO DAILY 03/17/24 03/17/24 capsule,delayed release Allergies Allergy/AdvReac Type Severity Reaction Status Date / Time No Known Allergies Allergy Verified 03/28/24 17:18 Review of Systems Review of Systems: All systems reviewed & are unremarkable except as noted in HPI and below PMFSH Past Medical History Medical History Arthritis Former smoker Gout Hypertension Rheumatoid arthritis Vitamin D deficiency Surgical History Surgical History H/O foot surgery History of back surgery Family History Family History Mother Dementia Father Bone cancer Sibling Myocardial infarct Social History Social History Social History: Has a son who lives in [place] Smoking packs per day: 0.5 Smoking cigarettes per day: 10.0 Years smoked: 10 Smoking pack-years: 5.00 Smoking status: Former smoker Tobacco type: cigarettes Alcohol intake: never Substance use: never Do You Feel Safe in your Home?: Yes Lack of Transportation: YES Lack of Food: Never True Current Housing: I Have Housing Concerned About Future Housing: No Difficulty Paying Gas/Electric Bills: No Difficulty Paying for Meds: No Currently Unemployed: No Education: High School Diploma/GED Difficulty w/ Childcare or Family Care: No Living arrangements: with family Additional living arrangements comments: , 61 years Spiritual care concerns: No Exam Narrative: EXAMINATION OF ORGAN SYSTEMS/BODY AREAS: Constitutional: Vital signs per nursing GENERAL:[No acute distress, non-toxic appearing.] HEAD: Normal with no signs of head trauma. EYES: EOMI, conjunctiva normal ENT: Hearing grossly intact LUNGS: Nonlabored breathing. HEART: [Regular rate and rhythm] ABD: [Soft], [nontender to palpation] EXT: Normal range of motion SKIN: [No rashes or lesions.] NEURO: [Alert. No gross focal sensory or strength deficits.] PSYCH: Normal affect Course Vital Signs Vital signs: Vital Signs Temperature 98.6 F 03/29/24 08:00 Pulse Rate 70 03/29/24 08:00 Respiratory Rate 18 03/29/24 08:00 Blood Pressure 144/57 H 03/29/24 08:00 Pulse Oximetry 97 03/29/24 08:00 Temperature 98.6 F 03/29/24 08:00 Pulse Rate 70 03/29/24 08:00 Respiratory Rate 18 03/29/24 08:00 Blood Pressure 144/57 H 03/29/24 08:00 Pulse Oximetry 97 03/29/24 08:00 Medical Decision Making MDM Narrative Medical decision making narrative: Patient presents with PICC line malfunction. PICC line nurse contacted, will replace PICC line with midline. Patient will be stable for discharge so she can have the remainder of her antiviral medication. Return precautions provided. Can follow-up with PCP Vital Signs Vital Signs: Vital Signs Temperature 98.6 F 03/29/24 08:00 Pulse Rate 70 03/29/24 08:00 Respiratory Rate 18 03/29/24 08:00 Blood Pressure 144/57 H 03/29/24 08:00 Pulse Oximetry 97 03/29/24 08:00 Temperature 98.6 F 03/29/24 08:00 Pulse Rate 70 03/29/24 08:00 Respiratory Rate 18 03/29/24 08:00 Blood Pressure 144/57 H 03/29/24 08:00 Pulse Oximetry 97 03/29/24 08:00 Discharge Plan Discharge Clinical Impression: PIC line (peripherally inserted central catheter) removal Patient Disposition: Home, Self-Care Condition: Stable Instructions: Midline Catheter (DC) Additional Instructions: Please follow up with your doctor; you can always return for any further issues. Prescriptions: No Action atenolol 25 mg tablet 25 mg PO DAILY allopurinol 100 mg tablet 100 mg PO DAILY kqscpns-scofdwtby-yxvc Tablet 1 tablet PO DAILY methotrexate sodium 2.5 mg tablet 2.5 mg PO DAILY Hold Instructions: Resume on 05/10/24. Please hold until you have been seen with neurology at follow up triamterene-hydrochlorothiazid 75-50 mg tablet 1 tablet PO DAILY Hold Instructions: Resume on 04/04/24. hold until seeing your PCP. This may not need to be resumed. lisinopril 40 mg tablet 40 mg PO DAILY Jardiance 10 mg tablet 10 mg PO DAILY celecoxib [Celebrex] 200 mg Capsule 200 mg PO DAILY coQ10 (ubiquinol) 200 mg Capsule 200 mg PO DAILY Alive Women's Multivitamin 4.5 mg iron- 120 mcg-60 mcg Tablet 1 tablet PO DAILY esomeprazole magnesium 40 mg capsule,delayed release(DR/EC) 40 mg PO DAILY aspirin 81 mg Tablet,Delayed Release (Dr/Ec) 81 mg PO QAM Qty: 90 0RF atorvastatin 20 mg Tablet 20 mg PO DAILY Qty: 90 0RF levetiracetam 750 mg Tablet 750 mg PO Q12HR Qty: 180 0RF Follow-up/Referrals: Alvaro,Telma Hamilton MD [Primary Care Provider] -
[2024-03-29] MEDS: LIDOCAINE HCL 1% LOCAL INJ 2 ML AMPUL 5 ML INFILTRATE (09:00)
[2024-03-29 09:35] VITALS: BP 145/58; PULSE 66; RESP 18; O2SAT 99
== END 2024-03-29 09:35 | disposition home or self-care (01) ==
PROVIDERS: Emergency Provider Emergency Medicine; PCP Family Medicine
DX: T82.534A Leakage of infusion catheter, initial encounter (principal); I10 Essential (primary) hypertension; E55.9 Vitamin D deficiency, unspecified; M06.9 Rheumatoid arthritis, unspecified; M10.9 Gout, unspecified; M19.90 Unspecified osteoarthritis, unspecified site; Z87.891 Personal history of nicotine dependence; Z79.84 Long term (current) use of oral hypoglycemic drugs; Z79.899 Other long term (current) drug therapy; Z79.82 Long term (current) use of aspirin; Y84.8 Other medical procedures as the cause of abnormal reaction of the patient, or of later complication, without mention of misadventure at the time of the procedure
CPT/HCPCS: 99282; C1751; J2003

== ENCOUNTER 2024-03-29 11:39 | Emergency (ER) | payer MEDICARE, OTHER, SELFPAY ==
[2024-03-29 12:10] VITALS: BP 144/86; PULSE 81; RESP 20; TEMP 36.9; O2SAT 96
--- NOTE | 2024-03-29 12:25 | ED.GENADULT ---
HPI - General Adult General Chief complaint: Skin/Abscess/Foreign Body Stated complaint: IV site leaking again Time Seen by Provider: 03/29/24 11:41 History of Present Illness HPI narrative: Patient just had midline replaced this morning; home health nurse noticed some leaking around it. Related Data Home Medications Medication Instructions Recorded Confirmed allopurinol 100 mg tablet 100 mg PO DAILY 03/16/24 03/16/24 atenolol 25 mg tablet 25 mg PO DAILY 03/16/24 03/16/24 vxelhfc-ehdpgfdob-gisb tablet 1 tablet PO DAILY 03/16/24 03/16/24 celecoxib 200 mg capsule (Celebrex) 200 mg PO DAILY 03/16/24 03/16/24 coQ10 (ubiquinol) 200 mg capsule 200 mg PO DAILY 03/16/24 03/16/24 empagliflozin 10 mg tablet 10 mg PO DAILY 03/16/24 03/16/24 (Jardiance) lisinopril 40 mg tablet 40 mg PO DAILY 03/16/24 03/16/24 methotrexate sodium 2.5 mg tablet 2.5 mg PO DAILY 03/16/24 03/16/24 mv-min-iron 4.5 mg-folic ac 120 1 tablet PO DAILY 03/16/24 03/16/24 mcg-vit K1 60 mcg-herbal no.352 tablet (Alive Women's Multivitamin) triamterene 75 1 tablet PO DAILY 03/16/24 03/16/24 mg-hydrochlorothiazide 50 mg tablet esomeprazole magnesium 40 mg 40 mg PO DAILY 03/17/24 03/17/24 capsule,delayed release Allergies Allergy/AdvReac Type Severity Reaction Status Date / Time No Known Allergies Allergy Verified 03/28/24 17:18 Review of Systems Review of Systems: All systems reviewed & are unremarkable except as noted in HPI and below PMFSH Past Medical History Medical History Arthritis Former smoker Gout Hypertension Rheumatoid arthritis Vitamin D deficiency Surgical History Surgical History H/O foot surgery History of back surgery Family History Family History Mother Dementia Father Bone cancer Sibling Myocardial infarct Social History Social History Social History: Has a son who lives in [place] Smoking packs per day: 0.5 Smoking cigarettes per day: 10.0 Years smoked: 10 Smoking pack-years: 5.00 Smoking status: Former smoker Tobacco type: cigarettes Alcohol intake: never Substance use: never Do You Feel Safe in your Home?: Yes Lack of Transportation: YES Lack of Food: Never True Current Housing: I Have Housing Concerned About Future Housing: No Difficulty Paying Gas/Electric Bills: No Difficulty Paying for Meds: No Currently Unemployed: No Education: High School Diploma/GED Difficulty w/ Childcare or Family Care: No Living arrangements: with family Additional living arrangements comments: , 61 years Spiritual care concerns: No Exam Narrative: EXAMINATION OF ORGAN SYSTEMS/BODY AREAS: Constitutional: Vital signs per nursing GENERAL:[No acute distress, non-toxic appearing.] HEAD: Normal with no signs of head trauma. EYES: EOMI, conjunctiva normal ENT: Hearing grossly intact LUNGS: Nonlabored breathing. HEART: [Regular rate and rhythm] ABD: [Soft], [nontender to palpation] EXT: Normal range of motion SKIN: [No rashes or lesions.] NEURO: [Alert and oriented x 3. No gross focal sensory or strength deficits.] PSYCH: Normal affect Medical Decision Making MDM Narrative Medical decision making narrative: Patient presents with concern for midline malfunction. My line nurse has reassessed it, noted that it flushes well, draws back fine, is in place. Dressing replaced. Stable for discharge with return precautions. Discharge Plan Discharge Clinical Impression: Leakage of infusion catheter Patient Disposition: Home, Self-Care Condition: Stable Additional Instructions: You can always return to the ER for any further issues. Prescriptions: No Action atenolol 25 mg tablet 25 mg PO DAILY allopurinol 100 mg tablet 100 mg PO DAILY [id number]-uysjnexvw-oseh Tablet 1 tablet PO DAILY methotrexate sodium 2.5 mg tablet 2.5 mg PO DAILY Hold Instructions: Resume on 05/10/24. Please hold until you have been seen with neurology at follow up triamterene-hydrochlorothiazid 75-50 mg tablet 1 tablet PO DAILY Hold Instructions: Resume on 04/04/24. hold until seeing your PCP. This may not need to be resumed. lisinopril 40 mg tablet 40 mg PO DAILY Jardiance 10 mg tablet 10 mg PO DAILY celecoxib [Celebrex] 200 mg Capsule 200 mg PO DAILY coQ10 (ubiquinol) 200 mg Capsule 200 mg PO DAILY Alive Women's Multivitamin 4.5 mg iron- 120 mcg-60 mcg Tablet 1 tablet PO DAILY esomeprazole magnesium 40 mg capsule,delayed release(DR/EC) 40 mg PO DAILY aspirin 81 mg Tablet,Delayed Release (Dr/Ec) 81 mg PO QAM Qty: 90 0RF atorvastatin 20 mg Tablet 20 mg PO DAILY Qty: 90 0RF levetiracetam 750 mg Tablet 750 mg PO Q12HR Qty: 180 0RF Follow-up/Referrals: Alvaro,Telma Hamilton MD [Primary Care Provider] -
== END 2024-03-29 12:37 | disposition home or self-care (01) ==
PROVIDERS: Emergency Provider Emergency Medicine; PCP Family Medicine
DX: T82.534A Leakage of infusion catheter, initial encounter (principal); I10 Essential (primary) hypertension; E55.9 Vitamin D deficiency, unspecified; M06.9 Rheumatoid arthritis, unspecified; M10.9 Gout, unspecified; M19.90 Unspecified osteoarthritis, unspecified site; Z87.891 Personal history of nicotine dependence; Z79.84 Long term (current) use of oral hypoglycemic drugs; Z79.899 Other long term (current) drug therapy; Z79.82 Long term (current) use of aspirin; Y84.8 Other medical procedures as the cause of abnormal reaction of the patient, or of later complication, without mention of misadventure at the time of the procedure
CPT/HCPCS: 99282

== ENCOUNTER 2024-03-29 13:53 | Inpatient (IN) | payer MEDICARE, OTHER, SELFPAY ==
[2024-03-29 13:59] VITALS: BP 127/74; PULSE 78; RESP 20; TEMP 36.4; O2SAT 96
[2024-03-29 14:06] VITALS: BP 110/51; PULSE 78; RESP 16; TEMP 36.4; O2SAT 95
[2024-03-29] MEDS: SODIUM CHLORIDE 0.9% IV 1,000 ML 999 ML IV CONT (14:38)
[2024-03-29] MEDS: PANTOPRAZOLE SODIUM IV 40 MG VIAL IV PUSH ×2 (14:38→17:28)
[2024-03-29] MEDS: ONDANSETRON INJ 4 MG/2 ML VIAL IV PUSH ×2 (14:38→17:28)
[2024-03-29 15:16] LABS: Basophils Absolute Auto 0.1 K/mm3 (0.0-0.1); Basophils Percent Auto 0.8 % (0.2-1.2); Eosinophils Absolute Auto 0.1 K/mm3 (0-0.3); Eosinophils Percent Auto 0.9 % (0-4.4); Hematocrit 34.4 % (37.0-47.0); Hemoglobin 11.6 g/dL (12.0-15.0); Immature Granulocyte Absolute 0.07 K/mm3 (0.00-0.031); Immature Granulocyte Percent A 0.6 % (0-0.5); Lymphocytes Absolute Auto 1.15 K/mm3 (0.9-3.2); Mean Corpuscular HGB Conc 33.7 g/dl (32-36); Mean Platelet Volume 9.9 fl (7.4-10.4); Monocytes Absolute Auto 1.1 K/mm3 (0.1-0.6); Monocytes Percent Auto 9.6 % (2.6-8.5); Neutrophils Percent Auto 78.1 % (45.5-73.1); Platelet Count Result 222 k/mm3 (150-375); Red Blood Count 3.51 M/mm3 (4.2-5.4); Red Cell Distribution Width 15.7 % (11.5-14.5); White Blood Count 11.5 K/mm3 (4.5-10.0)
[2024-03-29 15:25] LABS: Lactic Acid Reflex 1.9 mmol/L (0.7-2.0)
[2024-03-29 15:27] LABS: Alanine Aminotransferase 14 U/L (6-35); Albumin Level 3.4 g/dL (3.5-5.1); Alkaline Phosphatase 71 U/L (38-126); Anion Gap 8 mmol/L (4-12); Aspartate Amino Transferase 29 U/L (14-36); Bilirubin,Total 0.9 mg/dL (0.2-1.3); Blood Urea Nitrogen 14 mg/dL (7-17); Calcium 8.6 mg/dL (8.4-10.2); Carbon Dioxide 30 mmol/L (22-30); Chloride 102 mmol/L (98-107); Estimated Glomerular Filt Rate 48; Glucose 129 mg/dL (65-110); Lipase 171 U/L (23-300); Potassium 3.2 mmol/L (3.4-5.0); Sodium 140 mmol/L (137-145)
--- NOTE | 2024-03-29 17:07 | PC.NURSE ---
Sanju from pharmacy states it is ok to run ordered protonix drip with pts acyclovir infusion
--- NOTE | 2024-03-29 17:10 | ED.NAVMDI ---
HPI - Nausea/Vomiting/Diarrhea General Chief complaint: Nausea/Vomiting/Diarrhea Stated complaint: n/v Time Seen by Provider: 03/29/24 14:15 History of Present Illness HPI Narrative: Patient is an 78-year-old female who presents ER with nausea vomiting. Patient recently hospitalized for encephalitis. She is receiving acyclovir through PICC line. She was here earlier today for PICC line management. Since returning home she began vomiting in the blood has a coffee-ground appearance to it. She denies any gross blood in the vomit and has had no dark black stools. She does report having diarrhea since starting her acyclovir treatments. No abdominal pain was having frequent belching with her vomiting. Related Data Home Medications Medication Instructions Recorded Confirmed allopurinol 100 mg tablet 100 mg PO DAILY 03/16/24 03/16/24 atenolol 25 mg tablet 25 mg PO DAILY 03/16/24 03/16/24 fsmfbfp-imznhejmv-idzx tablet 1 tablet PO DAILY 03/16/24 03/16/24 celecoxib 200 mg capsule (Celebrex) 200 mg PO DAILY 03/16/24 03/16/24 coQ10 (ubiquinol) 200 mg capsule 200 mg PO DAILY 03/16/24 03/16/24 empagliflozin 10 mg tablet 10 mg PO DAILY 03/16/24 03/16/24 (Jardiance) lisinopril 40 mg tablet 40 mg PO DAILY 03/16/24 03/16/24 methotrexate sodium 2.5 mg tablet 2.5 mg PO DAILY 03/16/24 03/16/24 mv-min-iron 4.5 mg-folic ac 120 1 tablet PO DAILY 03/16/24 03/16/24 mcg-vit K1 60 mcg-herbal no.352 tablet (Alive Women's Multivitamin) triamterene 75 1 tablet PO DAILY 03/16/24 03/16/24 mg-hydrochlorothiazide 50 mg tablet esomeprazole magnesium 40 mg 40 mg PO DAILY 03/17/24 03/17/24 capsule,delayed release Allergies Allergy/AdvReac Type Severity Reaction Status Date / Time No Known Allergies Allergy Verified 03/28/24 17:18 Review of Systems Review of Systems: All systems reviewed & are unremarkable except as noted in HPI and below Constitutional: Constitutional: Reports no additional constitutional complaints Cardiovascular: Cardiovascular: Reports no additional cardiovascular complaints Respiratory: Respiratory: Reports no additional respiratory complaints Gastrointestinal: Gastrointestinal: Denies abdominal pain, Denies heartburn, Reports diarrhea, Reports nausea and Reports vomiting Musculoskeletal: Musculoskeletal: Reports no additional musculoskeletal complaints [facility] Past Medical History Medical History Arthritis Former smoker Gout Hypertension Rheumatoid arthritis Vitamin D deficiency Surgical History Surgical History H/O foot surgery History of back surgery Family History Family History Mother Dementia Father Bone cancer Sibling Myocardial infarct Social History Social History Social History: Has a son who lives in [place] Smoking packs per day: 0.5 Smoking cigarettes per day: 10.0 Years smoked: 10 Smoking pack-years: 5.00 Smoking status: Former smoker Tobacco type: cigarettes Alcohol intake: never Substance use: never Do You Feel Safe in your Home?: Yes Lack of Transportation: YES Lack of Food: Never True Current Housing: I Have Housing Concerned About Future Housing: No Difficulty Paying Gas/Electric Bills: No Difficulty Paying for Meds: No Currently Unemployed: No Education: High School Diploma/GED Difficulty w/ Childcare or Family Care: No Living arrangements: with family Additional living arrangements comments: , 61 years Spiritual care concerns: No Exam Narrative: GENERAL: Vomiting, overweight, and in no acute distress. HEAD: Normocephalic, atraumatic. ENT: Mucous membranes moist. NECK: Supple. CHEST: Clear to auscultation. No respiratory distress. HEART: Regular rate and rhythm. Normal peripheral pulses. ABDOMEN: Soft, nontender, nondistended. Hemoccult-positive stool. EXTREMITIES: Normal range of motion. No edema. SKIN: Warm, dry, no rash. NEURO: Alert and oriented x3. PSYCH: Normal mood and affect. Course Course Emergency Course: discussed treatment plan with patient. She does not wish to have endoscopy or cautery if she is bleeding more. She would prefer to only treat her possible gastric ulcer or hemorrhagic gastritis with IV medications. Patient accepted by hospitalist. Protonix IV started. Vital Signs Vital signs: Vital Signs Temperature 97.6 F 03/29/24 13:59 Pulse Rate 78 03/29/24 13:59 Respiratory Rate 20 03/29/24 13:59 Blood Pressure 127/74 03/29/24 13:59 Pulse Oximetry 96 03/29/24 13:59 Oxygen Delivery Room Air 03/29/24 13:59 Temperature 97.6 F 03/29/24 14:06 Pulse Rate 76 03/29/24 18:35 Respiratory Rate 18 03/29/24 18:35 Blood Pressure 135/58 L 03/29/24 18:35 Pulse Oximetry 97 03/29/24 18:35 Oxygen Delivery Room Air 03/29/24 14:06 MDM - Nausea/Vomiting/Diarrhea Lab Data 03/29/24 15:07 03/29/24 15:07 Labs: Lab Results 03/29/24 Range/Units 15:07 WBC 11.5 H (4.5-10.0) K/mm3 RBC 3.51 L (4.2-5.4) M/mm3 Hgb 11.6 L (12.0-15.0) g/dL Hct 34.4 L (37.0-47.0) % MCV 98.0 (80-100) fl MCH 33.0 (26-34) pg MCHC 33.7 (32-36) g/dl RDW 15.7 H (11.5-14.5) % Plt Count 222 (150-375) k/mm3 MPV 9.9 (7.4-10.4) fl Immature Gran % (Auto) 0.6 H (0-0.5) % Neut % (Auto) 78.1 H (45.5-73.1) % Lymph % (Auto) 10.0 L (18.3-44.2) % Mineral % (Auto) 9.6 H (2.6-8.5) % Eos % (Auto) 0.9 (0-4.4) % Baso % (Auto) 0.8 (0.2-1.2) % Lymph # (Auto) 1.15 (0.9-3.2) K/mm3 Mineral # (Auto) 1.1 H (0.1-0.6) K/mm3 Eos # (Auto) 0.1 (0-0.3) K/mm3 Baso # (Auto) 0.1 (0.0-0.1) K/mm3 Abs Immat Gran (auto) 0.07 H (0.00-0.031) K/mm3 Absolute Neuts (auto) 9.0 H (1.3-6.7) K/mm3 Absolute Nucleated RBC 0.000 (0.0-0.012) K/mm3 Nucleated RBC % 0.0 (0.0-0.2) % Sodium 140 (137-145) mmol/L Potassium 3.2 L (3.4-5.0) mmol/L Chloride 102 (98-107) mmol/L Carbon Dioxide 30 (22-30) mmol/L Anion Gap 8 (4-12) mmol/L BUN 14 (7-17) mg/dL Creatinine 1.10 H (0.7-1.0) mg/dL Estim Creat Clear Calc Not Reportable Estimated GFR 48 L (59 - ) Glucose 129 H (65-110) mg/dL Lactic Acid 1.9 (0.7-2.0) mmol/L Calcium 8.6 (8.4-10.2) mg/dL Total Bilirubin 0.9 (0.2-1.3) mg/dL AST 29 (14-36) U/L ALT 14 (6-35) U/L Alkaline Phosphatase 71 (38-126) U/L Total Protein 6.0 L (6.3-8.2) g/dL Albumin 3.4 L (3.5-5.1) g/dL Lipase 171 (23-300) U/L Discharge Plan Discharge Clinical Impression: Acute upper GI bleed Patient Disposition: Still a Patient Condition: Stable Prescriptions: No Action atenolol 25 mg tablet 25 mg PO DAILY allopurinol 100 mg tablet 100 mg PO DAILY pvixgvz-tnqtbpeup-unwn Tablet 1 tablet PO DAILY methotrexate sodium 2.5 mg tablet 2.5 mg PO DAILY Hold Instructions: Resume on 05/10/24. Please hold until you have been seen with neurology at follow up triamterene-hydrochlorothiazid 75-50 mg tablet 1 tablet PO DAILY Hold Instructions: Resume on 04/04/24. hold until seeing your PCP. This may not need to be resumed. lisinopril 40 mg tablet 40 mg PO DAILY Jardiance 10 mg tablet 10 mg PO DAILY celecoxib [Celebrex] 200 mg Capsule 200 mg PO DAILY coQ10 (ubiquinol) 200 mg Capsule 200 mg PO DAILY Alive Women's Multivitamin 4.5 mg iron- 120 mcg-60 mcg Tablet 1 tablet PO DAILY esomeprazole magnesium 40 mg capsule,delayed release(DR/EC) 40 mg PO DAILY aspirin 81 mg Tablet,Delayed Release (Dr/Ec) 81 mg PO QAM Qty: 90 0RF atorvastatin 20 mg Tablet 20 mg PO DAILY Qty: 90 0RF levetiracetam 750 mg Tablet 750 mg PO Q12HR Qty: 180 0RF Follow-up/Referrals: Alvaro,Telma Hamilton MD [Primary Care Provider] -
[2024-03-29] MEDS: PANTOPRAZOLE SODIUM IV 80 MG in SODIUM CHLORIDE 0.9% IV 500 ML 50 MG IV CONT (17:28)
[2024-03-29] MEDS: SODIUM CHLORIDE 0.9% IV 1,000 ML 125 ML IV CONT (17:31)
[2024-03-29 18:35] VITALS: BP 135/58; PULSE 76; RESP 18; O2SAT 97
--- NOTE | 2024-03-29 19:57 | PM.IMHP ---
H&P: HPI History of Present Illness Date/Time: 03/29/24 19:57 Chief Complaint: COFFEE-GROUND EMESIS Narrative: This is an 78-year-old female with past medical history significant for arthritis, gout, hypertension, rheumatoid arthritis. Patient recently diagnosed with HSV encephalitis discharge home with PICC line and acyclovir. Comes to the emergency room after having several episodes of coffee-ground emesis, patient denies melena, denies bright red blood per rectum. patient denies any abdominal pain. patient has been admitted for further evaluation management and treatment. Review of Systems Review of Systems: Coffee-ground emesis [facility] Past Medical History Medical History (Updated 03/30/24 @ 00:03 by David Sainz MD) Arthritis Former smoker Gout Hypertension Rheumatoid arthritis Vitamin D deficiency Surgical History Surgical History H/O foot surgery History of back surgery Family History Family History Mother Dementia Father Bone cancer Sibling Myocardial infarct Social History Social History Social History: Has a son who lives in [place] Smoking packs per day: 0.5 Smoking cigarettes per day: 10.0 Years smoked: 10 Smoking pack-years: 5.00 Smoking status: Former smoker Tobacco type: cigarettes Alcohol intake: never Substance use: never Do You Feel Safe in your Home?: Yes Lack of Transportation: No Lack of Food: Never True Current Housing: I Have Housing Concerned About Future Housing: No Difficulty Paying Gas/Electric Bills: No Difficulty Paying for Meds: No Currently Unemployed: No Education: High School Diploma/GED Difficulty w/ Childcare or Family Care: No Living arrangements: with family Additional living arrangements comments: , 63 years Spiritual care concerns: No Meds Home Medications and Allergies Home Medications Medication Instructions Recorded Confirmed Type allopurinol 100 mg tablet 100 mg PO DAILY 03/16/24 03/29/24 History atenolol 25 mg tablet 25 mg PO DAILY 03/16/24 03/29/24 History dmsobsb-tpzffavmn-dihv tablet 1 tablet PO DAILY 03/16/24 03/29/24 History celecoxib 200 mg capsule (Celebrex) 200 mg PO DAILY 03/16/24 03/29/24 History coQ10 (ubiquinol) 200 mg capsule 200 mg PO DAILY 03/16/24 03/29/24 History empagliflozin 10 mg tablet 10 mg PO DAILY 03/16/24 03/29/24 History (Jardiance) lisinopril 40 mg tablet 40 mg PO DAILY 03/16/24 03/29/24 History methotrexate sodium 2.5 mg tablet 2.5 mg PO DAILY 03/16/24 03/29/24 History mv-min-iron 4.5 mg-folic ac 120 1 tablet PO DAILY 03/16/24 03/29/24 History mcg-vit K1 60 mcg-herbal no.352 tablet (Alive Women's Multivitamin) triamterene 75 1 tablet PO DAILY 03/16/24 03/29/24 History mg-hydrochlorothiazide 50 mg tablet esomeprazole magnesium 40 mg 40 mg PO DAILY 03/17/24 03/29/24 History capsule,delayed release aspirin 81 mg tablet,delayed 81 mg PO QAM #90 tabs 03/22/24 03/29/24 Rx release atorvastatin 20 mg tablet 20 mg PO DAILY #90 tabs 03/22/24 03/29/24 Rx levetiracetam 750 mg tablet 750 mg PO Q12HR #180 tabs 03/22/24 03/29/24 Rx acyclovir in 0.9 % sodium chlr See Rx Instructions .Route .COMPLEX 03/29/24 03/29/24 History Allergies Allergy/AdvReac Type Severity Reaction Status Date / Time No Known Allergies Allergy Verified 03/28/24 17:18 Vital Signs Vital Signs - 24 hr 03/29/24 13:59 03/29/24 14:06 03/29/24 18:35 Temperature 97.6 F 97.6 F Pulse Rate 78 78 76 Respiratory Rate 20 16 18 Blood Pressure 127/74 110/51 L 135/58 L Pulse Oximetry 96 95 97 Oxygen Delivery Room Air Room Air Exam Narrative: LYING IN STRETCHER Const: General: comfortable, no acute distress, well developed, alert, awake and obese Nutritional Appearance: obese Orientation/consciousness: patient oriented x3 HENMT: Head: normal to inspection, normocephalic and atraumatic Ears: hearing grossly normal bilaterally Face/Nose/Sinus: normal facial exam Face and sinus: normal facial exam Eyes: General: appearance normal, both eyes and all related structures Pupils: Equal, round and reactive pupils present EOM: EOMs intact bilaterally Neck: Neck: full ROM, no lymphadenopathy and no JVD Thyroid: thyroid normal Lymphatic: no lymphadenopathy noted Resp: Effort & Inspection: normal respiratory effort and able to speak in complete sentences Auscultation: clear to auscultation bilaterally Cardio: Jugular venous distension: no JVD Rate: regular rate Rhythm: regular rhythm Heart sounds: S1 normal heart sound present and S2 normal heart sound present GI: GI Palp: Yes Soft to palpation and Yes No hepatosplenomegaly present : General: Yes deferred Skin: Rashes: no rashes Wounds: no wounds Neuro: General: patient oriented x3 and CN's II-XI intact bilaterally Cranial nerves: Yes CN's II-XII intact bilaterally and Yes Equal, round and reactive pupils present Cognition (Neuro): normal cognition Speech: normal speech Gait exam (Neuro): Normal gait present Motor exam (neuro): 5/5 motor strength present throughout Extrem: General: normal to inspection, full ROM, no joint enlargement and no pedal edema H&P: Results Labs Labs: Short CBC 03/29/24 Range/Units 15:07 WBC 11.5 H (4.5-10.0) K/mm3 Hgb 11.6 L (12.0-15.0) g/dL Hct 34.4 L (37.0-47.0) % Plt Count 222 (150-375) k/mm3 BMP 03/29/24 15:07 Sodium 140 Potassium 3.2 L Chloride 102 Carbon Dioxide 30 BUN 14 Creatinine 1.10 H Glucose 129 H Calcium 8.6 Liver Function 03/29/24 Range/Units 15:07 Total Bilirubin 0.9 (0.2-1.3) mg/dL AST 29 (14-36) U/L ALT 14 (6-35) U/L Alkaline Phosphatase 71 (38-126) U/L Albumin 3.4 L (3.5-5.1) g/dL Assessment and Plan Assessment and plan (1) Acute upper GI bleed: Code(s): K92.2 - Gastrointestinal hemorrhage, unspecified Status: Acute Assessment and Plan: admit to [facility] on pantoprazole drip continue to monitor (2) Encephalitis due to human herpes simplex virus (HSV): Code(s): B00.4 - Herpesviral encephalitis Status: Acute Assessment and Plan: continue acyclovir (3) Dementia: Code(s): F03.90 - Unspecified dementia, unspecified severity, without behavioral disturbance, psychotic disturbance, mood disturbance, and anxiety Status: Acute (4) Hypertension: Code(s): I10 - Essential (primary) hypertension Status: Acute (5) Seizure: Code(s): R56.9 - Unspecified convulsions Status: Acute (6) Rheumatoid arthritis: Code(s): M06.9 - Rheumatoid arthritis, unspecified Status: Acute (7) Former smoker: Code(s): Z87.891 - Personal history of nicotine dependence Status: Acute (8) Gout: Code(s): M10.9 - Gout, unspecified Status: Acute Hospitalist MIPS Advance Care Plan I have confirmed that the patient's Advanced Care Plan is present, code status is documented, or surrogate decision maker is listed in patient medical record.: Yes Medication Reconciliation I have utilized all available resources to obtain, update and review the patients current medications (includes all prescriptions, OTC, herbals, cannabis, and nutritional supplements).: Yes
[2024-03-29 21:15] VITALS: BP 140/68; PULSE 83; RESP 20; TEMP 36.9; O2SAT 100
--- NOTE | 2024-03-29 21:36 | ADMGEN ---
This patient, Colette Espino, was admitted to [facility] Surg Room 329-01. Patient/family oriented to hospital policies and general routines including ID bracelet, bed and alarms, visiting hours, pain management, procedures, bathroom and other care routines, personal items, smoking policy, room service/diet, and visiting hours. Information on how to activate the Rapid Response Team has been discussed. Patient/Family are encouraged to report perceived risks to care and to ask questions if they do not understand what they are told or what they should do.
[2024-03-29 22:34] VITALS: BMI 42.1
--- NOTE | 2024-03-30 00:36 | PC.NURSE ---
Pt came in with a CURLIN pump for her prescribed acyclovir. Pt currently receives 3 grams in 560 ml continuously daily with a bag change every 24 hours. Order was placed for pharmacy to review, pharmacy called me questioning the order and how we should order her antibiotic. Called dr wilson to clarify that we can do 1 gram acyclovir every [address] wilson confirmed that that is the appropriate replacement order for her pump.
[2024-03-30] MEDS: SODIUM CHLORIDE 0.9% IV 1,000 ML 125 ML IV CONT ×3 (01:45→18:51)
[2024-03-30] MEDS: PANTOPRAZOLE SODIUM IV 80 MG in SODIUM CHLORIDE 0.9% IV 500 ML 50 MG IV CONT ×2 (04:10→15:01)
[2024-03-30 04:55] VITALS: BP 125/46; PULSE 72; RESP 20; TEMP 37.4; O2SAT 95
[2024-03-30] MEDS: ACYCLOVIR SODIUM IVPB 1,000 MG in DEXTROSE 5% IN WATER 250 ML 250 MG IVPB ×3 (08:48→21:53)
[2024-03-30 08:54] LABS: Basophils Absolute Auto 0.1 K/mm3 (0.0-0.1); Basophils Percent Auto 0.5 % (0.2-1.2); Eosinophils Absolute Auto 0.1 K/mm3 (0-0.3); Eosinophils Percent Auto 0.5 % (0-4.4); Hematocrit 30.8 % (37.0-47.0); Hemoglobin 10.2 g/dL (12.0-15.0); Immature Granulocyte Absolute 0.14 K/mm3 (0.00-0.031); Immature Granulocyte Percent A 0.9 % (0-0.5); Lymphocytes Absolute Auto 1.33 K/mm3 (0.9-3.2); Lymphocytes Percent Auto 8.6 % (18.3-44.2); Mean Corpuscular HGB Conc 33.1 g/dl (32-36); Mean Corpuscular Hemoglobin 34.2 pg (26-34); Mean Corpuscular Volume 103.4 fl (80-100); Mean Platelet Volume 10.1 fl (7.4-10.4); Monocytes Absolute Auto 1.4 K/mm3 (0.1-0.6); Monocytes Percent Auto 9.2 % (2.6-8.5); Neutrophils Absolute Auto 12.4 K/mm3 (1.3-6.7); Neutrophils Percent Auto 80.3 % (45.5-73.1); Platelet Count Result 233 k/mm3 (150-375); Red Blood Count 2.98 M/mm3 (4.2-5.4); Red Cell Distribution Width 16.1 % (11.5-14.5); White Blood Count 15.4 K/mm3 (4.5-10.0)
[2024-03-30] MEDS: levETIRAcetam IV 750 MG in DEXTROSE 5% 100 ML 430 MG IVPB ×2 (10:00→21:26)
[2024-03-30] MEDS: POTASSIUM CHLORIDE INJ 40 MEQ in SODIUM CHLORIDE 0.9% IV 500 ML 130 MEQ IVPB (10:20)
[2024-03-30 10:28] LABS: Alanine Aminotransferase 13 U/L (6-35); Albumin Level 2.7 g/dL (3.5-5.1); Alkaline Phosphatase 60 U/L (38-126); Anion Gap 4 mmol/L (4-12); Aspartate Amino Transferase 35 U/L (14-36); Bilirubin,Total 0.9 mg/dL (0.2-1.3); Blood Urea Nitrogen 22 mg/dL (7-17); Calcium 7.7 mg/dL (8.4-10.2); Carbon Dioxide 25 mmol/L (22-30); Chloride 109 mmol/L (98-107); Estimated CRCL calculation 39 ml/min; Estimated Glomerular Filt Rate 43; Glucose 87 mg/dL (65-110); Potassium 3.5 mmol/L (3.4-5.0); Sodium 138 mmol/L (137-145)
[2024-03-30 12:33] LABS: Add Urine Microscopic? NO; Appearance Urine Clear (Clear); Bilirubin Urine Negative (Negative); Blood Urine Negative (Negative); Color Urine Yellow (Yellow); Glucose Urine UA 3+ mg/dL (Negative); Ketones Urine Negative (Negative); Leukocyte Esterase Ur Negative LEU/UL (Negative); Nitrate Urine Negative (Negative); Protein Urine Negative (Negative); Specific Grav Ur 1.014 (1.001-1.035); Urobilinogen Urine 0.2 mg/dL (<2.0)
[2024-03-30 14:00] VITALS: BP 100/50; PULSE 67; RESP 20; TEMP 36.4; O2SAT 94
--- NOTE | 2024-03-30 14:41 | P.PNIM_ITS ---
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 * PPI gtt * clear liquid diet advancing to general * Hgb stable minimal drop 11.6-10.2 likely dilution receiving IV fluids * Patient would like conservative treatment at this time unless unable to tolerate oral intake or significant drop in hgb * Hgb daily * if needed will consult GI for EGD however at this time patient just wants conservative TX * Hemodynamically stable (2) Encephalitis due to human herpes simplex virus (HSV): Code(s): B00.4 - Herpesviral encephalitis Status: Acute Assessment and Plan: * Recent diagnosis spinal fluid studies still pending for final results * will continue IV acyclovir * PICC in place (3) Dementia: Code(s): F03.90 - Unspecified dementia, unspecified severity, without behavioral disturbance, psychotic disturbance, mood disturbance, and anxiety Status: Acute Assessment and Plan: * Stable * Alert and oriented x 3 (4) Hypertension: Code(s): I10 - Essential (primary) hypertension Status: Acute Assessment and Plan: * BP stable * will resume home medications once tolerating oral intake * BP soft * can add hydralazine IVP PRN if needed (5) Seizure: Code(s): R56.9 - Unspecified convulsions Status: Acute Assessment and Plan: * IV Keppra 750 BID * Transition back to home PO once tolerating oral intake (6) Rheumatoid arthritis: Code(s): M06.9 - Rheumatoid arthritis, unspecified Status: Acute Assessment and Plan: * Resumed home medication when tolerating oral intake Plan Code Status: DNR DVT prophylaxis: SCD's Stress ulcer Prophylaxis: PPI gtt Disposition: Patient continues admission for possible GI bleed secondary to gastric ulcer will continue with PPI gtt and advance diet if tolerating oral intake and HGB remains stable patient does not want EGD and can likely discharge to home tomorrow. She is still receiving IV acyclovir and that will continue at discharge PICC in place and set-up. Time Spent With Patient Time with patient: 15 - 25 minutes Subjective Date/time seen: 03/30/24 14:41 Interval history: Patient is a 78 year old female admitted for N/V with coffee ground emesis and possible GI bleed. 03/30/2024: Assumed Care Patient denied any N/V overnight after zofran and PPI gtt, she is tolerating clear liquids. Denied any ABD pain, SOB, Dizziness, CP, fever or chills. Patient stated she does have HX of gastric stress ulcers. Hgb stable minimal drop likely dilution from IV fluids. Patient and family requested information about conservative therapy vs EGD, I explained EGD could give better direct visualization and rule in or out any bleeding vs conservative treatment with PPI, advancing diet as tolerated, and monitor for any significant drop in Hgb. At this time the would prefer conservative treatment unless unable to tolerate advance diet, N/V returns or there is a significant drop in HGb. Review of Systems Review of Systems: All systems reviewed & are unremarkable except as noted in HPI and below Exam Narrative: * GENERAL: Pleasant Alert and oriented x 3 female. No acute distress. * EYES: EOMI. No scleral icterus. PERRLA. * HEENT: Moist mucous membranes. * LUNGS: Clear to auscultation bilaterally. No accessory muscle use. * CARDIOVASCULAR: Regular rate and rhythm. No murmur. No JVD. S1-S2 * ABDOMEN: Soft, non tenderness and non-distended. No palpable masses. * EXTREMITIES: No edema. Non-tender * SKIN: No rashes or lesions. Skin warm, dry. * NEUROLOGIC: No focal neurological deficits. CN II-XII grossly intact * PSYCHIATRIC: Appropriate mood and affect. Good judgement and insight. N Objective Data Vital Signs Vital Signs: Vital Signs - 24 hr 03/29/24 18:35 03/29/24 21:15 03/29/24 22:50 Temperature 98.5 F Pulse Rate 76 83 Respiratory Rate 18 20 Blood Pressure 135/58 L 140/68 Pulse Oximetry 97 100 Oxygen Delivery Room Air 03/30/24 04:55 03/30/24 10:00 Temperature 99.4 F Pulse Rate 72 Respiratory Rate 20 Blood Pressure 125/46 L Pulse Oximetry 95 Oxygen Delivery Room Air Intake/Output Intake/Output: Intake & Output 03/27/24 03/28/24 03/29/24 03/30/24 23:59 23:59 23:59 23:59 Intake Total 1000 3557.5 Balance 1000 3557.5 Meds/Results Medications: Active Medications Generic Name Dose Route Start Last Admin Trade Name Freq PRN Reason Stop Dose Admin Sodium Chloride 1,000 mls @ 125 mls/hr 03/29/24 17:15 03/30/24 09:56 Normal Saline Iv IV CONT 125 mls/hr .Q8H OBDULIA Administration Acyclovir Sodium 1,000 mg/ 270 mls @ 250 mls/hr 03/30/24 08:00 03/30/24 09:53 Dextrose IVPB Infused Q8HR OBDULIA Infusion Pantoprazole Sodium 80 mg/ 500 mls @ 50 mls/hr 03/30/24 04:00 03/30/24 04:10 Sodium Chloride IV CONT 50 mls/hr .Q10H OBDULIA Administration Levetiracetam 750 mg/ Dextrose 107.5 mls @ 430 mls/hr 03/30/24 09:00 03/30/24 10:15 IVPB Infused Q12HR OBDULIA Infusion Ondansetron HCl 4 mg 03/29/24 17:11 Ondansetron Inj 4 Mg/2 Ml Vial IV PUSH Q4H PRN Nausea Sodium Chloride 10 ml 03/30/24 14:00 Saline Lock Flush IV PUSH Q8HR OBDULIA Sodium Chloride 10 ml 03/30/24 06:33 Saline Lock Flush IV PUSH PRN PRN Flush Sodium Chloride 20 ml 03/30/24 06:33 Saline Lock Flush IV PUSH PRN PRN after blood draws Labs Labs: Laboratory Results - last 24 hr 03/29/24 03/30/24 03/30/24 15:07 08:23 12:26 WBC 11.5 H 15.4 H RBC 3.51 L 2.98 L Hgb 11.6 L 10.2 L Hct 34.4 L 30.8 L MCV 98.0 103.4 H D MCH 33.0 34.2 H MCHC 33.7 33.1 RDW 15.7 H 16.1 H Plt Count 222 233 MPV 9.9 10.1 Immature Gran % (Auto) 0.6 H 0.9 H Neut % (Auto) 78.1 H 80.3 H Lymph % (Auto) 10.0 L 8.6 L Kay % (Auto) 9.6 H 9.2 H Eos % (Auto) 0.9 0.5 Baso % (Auto) 0.8 0.5 Lymph # (Auto) 1.15 1.33 Kay # (Auto) 1.1 H 1.4 H Eos # (Auto) 0.1 0.1 Baso # (Auto) 0.1 0.1 Abs Immat Gran (auto) 0.07 H 0.14 H Absolute Neuts (auto) 9.0 H 12.4 H Absolute Nucleated RBC 0.000 0.000 Nucleated RBC % 0.0 0.0 Sodium 140 138 Potassium 3.2 L 3.5 Chloride 102 109 H Carbon Dioxide 30 25 Anion Gap 8 4 BUN 14 22 H Creatinine 1.10 H 1.20 H Estim Creat Clear Calc Not Reportable 39 Estimated GFR 48 L 43 L Glucose 129 H 87 Lactic Acid 1.9 Calcium 8.6 7.7 L Total Bilirubin 0.9 0.9 AST 29 35 ALT 14 13 Alkaline Phosphatase 71 60 Total Protein 6.0 L 5.0 L Albumin 3.4 L 2.7 L Lipase 171 Urine Color Yellow Urine Appearance Clear Urine pH 5.0 Ur Specific [place] 1.014 Urine Protein Negative Urine Glucose (UA) 3+ H Urine Ketones Negative Ur Blood (Man) Negative Urine Nitrate Negative Urine Bilirubin Negative Urine Urobilinogen 0.2 Leukocyte Esterase Rfl Negative Quality VTE Prophylaxis VTE prophylaxis: mechanical ordered -Patient's previous records reviewed on admission -ER notes reviewed in detail on admission -discussed all findings and current treatment plan with patient/Family/POA -Consultations reviewed for recommendations -Patient's disposition for safe discharge discussed with case investigator Dictation performed by [employer] at work direct speech recognition software, therefore prosthetic lab technician variants and typographical errors may occur. Hospitalist MIPS Advance Care Plan I have confirmed that the patient's Advanced Care Plan is present, code status is documented, or surrogate decision maker is listed in patient medical record.: Yes Medication Reconciliation I have utilized all available resources to obtain, update and review the patients current medications (includes all prescriptions, OTC, herbals, cannabis, and nutritional supplements).: Yes The patient is not eligible for med reconciliation; the patient is in a emergent medical situation where delaying treatment would jeopardize the patients health.: No
[2024-03-30] MEDS: SALINE LOCK FLUSH 10 ML IV PUSH ×2 (15:01→21:53)
[2024-03-30 20:35] VITALS: BP 96/54; PULSE 75; RESP 18; TEMP 36.4; O2SAT 95
[2024-03-31] MEDS: PANTOPRAZOLE SODIUM IV 80 MG in SODIUM CHLORIDE 0.9% IV 500 ML 50 MG IV CONT (03:26)
[2024-03-31 04:45] VITALS: BP 111/41; PULSE 80; RESP 24; TEMP 37.1; O2SAT 94
[2024-03-31] MEDS: ACYCLOVIR SODIUM IVPB 1,000 MG in DEXTROSE 5% IN WATER 250 ML 250 MG IVPB ×3 (05:31→20:57)
[2024-03-31] MEDS: SALINE LOCK FLUSH 10 ML IV PUSH ×3 (05:32→22:00)
[2024-03-31 05:55] LABS: Hematocrit 25.2 % (37.0-47.0); Hemoglobin 8.4 g/dL (12.0-15.0); Mean Corpuscular HGB Conc 33.3 g/dl (32-36); Mean Corpuscular Hemoglobin 33.7 pg (26-34); Mean Corpuscular Volume 101.2 fl (80-100); Mean Platelet Volume 9.5 fl (7.4-10.4); Platelet Count Result 179 k/mm3 (150-375); Red Blood Count 2.49 M/mm3 (4.2-5.4); Red Cell Distribution Width 16.2 % (11.5-14.5); White Blood Count 9.9 K/mm3 (4.5-10.0)
[2024-03-31 05:59] LABS: Alanine Aminotransferase 10 U/L (6-35); Albumin Level 2.2 g/dL (3.5-5.1); Alkaline Phosphatase 56 U/L (38-126); Anion Gap 1 mmol/L (4-12); Aspartate Amino Transferase 23 U/L (14-36); Bilirubin,Total 0.7 mg/dL (0.2-1.3); Blood Urea Nitrogen 16 mg/dL (7-17); Calcium 7.1 mg/dL (8.4-10.2); Carbon Dioxide 22 mmol/L (22-30); Chloride 113 mmol/L (98-107); Estimated CRCL calculation 39 ml/min; Estimated Glomerular Filt Rate 43; Glucose 92 mg/dL (65-110); Potassium 3.5 mmol/L (3.4-5.0); Sodium 136 mmol/L (137-145)
[2024-03-31] MEDS: levETIRAcetam IV 750 MG in DEXTROSE 5% 100 ML 430 MG IVPB ×2 (09:06→20:05)
[2024-03-31 10:31] VITALS: O2SAT 94
[2024-03-31 14:00] VITALS: BP 123/50; PULSE 81; RESP 18; TEMP 37.1; O2SAT 96
[2024-03-31 14:59] LABS: Hematocrit 26.1 % (37.0-47.0); Hemoglobin 8.7 g/dL (12.0-15.0)
--- NOTE | 2024-03-31 15:23 | P.PNIM_ITS ---
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 * PPI gtt * clear liquid diet advancing to general * Hgb stable minimal drop 11.6-10.2 likely dilution receiving IV fluids * Patient would like conservative treatment at this time unless unable to tolerate oral intake or significant drop in hgb * Hgb daily * if needed will consult GI for EGD however at this time patient just wants conservative [place] * Hemodynamically stable 03/31/2024: * Hgb dropped 8.4 but patient tolerating oral intake and no N/V * Will continue to with PPI and follow-up Hgb in the am * if HGB trends up can go home if downtrend will consult GI for EGD (2) Encephalitis due to human herpes simplex virus (HSV): Code(s): B00.4 - Herpesviral encephalitis Status: Acute Assessment and Plan: * Recent diagnosis spinal fluid studies still pending for final results * will continue IV acyclovir * PICC in place (3) Dementia: Code(s): F03.90 - Unspecified dementia, unspecified severity, without behavioral disturbance, psychotic disturbance, mood disturbance, and anxiety Status: Acute Assessment and Plan: * Stable * Alert and oriented x 3 (4) Hypertension: Code(s): I10 - Essential (primary) hypertension Status: Acute Assessment and Plan: * BP stable * will resume home medications once tolerating oral intake * BP soft * can add hydralazine IVP PRN if needed (5) Seizure: Code(s): R56.9 - Unspecified convulsions Status: Acute Assessment and Plan: * IV Keppra 750 BID * Transition back to home PO once tolerating oral intake (6) Rheumatoid arthritis: Code(s): M06.9 - Rheumatoid arthritis, unspecified Status: Acute Assessment and Plan: * Resumed home medication when tolerating oral intake Plan Code Status: DNR DVT prophylaxis: SCD's Stress ulcer Prophylaxis: PPI gtt Disposition: Patient continues admission for possible GI bleed secondary to gastric ulcer will continue with PPI gtt and advance diet if tolerating oral intake and HGB remains stable patient does not want EGD and can likely discharge to home tomorrow. She is still receiving IV acyclovir and that will continue at discharge PICC in place and set-up. Time Spent With Patient Time with patient: 15 - 25 minutes Subjective Date/time seen: 03/31/24 15:23 Interval history: Patient is a 78 year old female admitted for N/V with coffee ground emesis and possible GI bleed. 03/31/2024: Assumed Care Patient tolerating oral intake at this time HGB was 10.2 dropped to 8.4 overnight however no further N/V. Patient denied CP, Dizziness, or SOB. Will continue with conservative measures and IV PPI if Hgb trends up can likely disc harge home tomorrow. Review of Systems Review of Systems: All systems reviewed & are unremarkable except as noted in HPI and below Exam Narrative: * GENERAL: Pleasant Alert and oriented x 3 female. No acute distress. * EYES: EOMI. No scleral icterus. PERRLA. * HEENT: Moist mucous membranes. * LUNGS: Clear to auscultation bilaterally. No accessory muscle use. * CARDIOVASCULAR: Regular rate and rhythm. No murmur. No JVD. S1-S2 * ABDOMEN: Soft, non tenderness and non-distended. No palpable masses. * EXTREMITIES: No edema. Non-tender * SKIN: No rashes or lesions. Skin warm, dry. * NEUROLOGIC: No focal neurological deficits. CN II-XII grossly intact * PSYCHIATRIC: Appropriate mood and affect. Good judgement and insight. N Objective Data Vital Signs Vital Signs: Vital Signs - 24 hr 03/30/24 20:35 03/30/24 20:00 03/31/24 04:45 Temperature 97.6 F 98.8 F Pulse Rate 75 80 Respiratory Rate 18 24 H Blood Pressure 96/54 L 111/41 L Pulse Oximetry 95 94 Oxygen Delivery Room Air 03/31/24 10:31 03/31/24 14:00 Temperature 98.7 F Pulse Rate 81 Respiratory Rate 18 Blood Pressure 123/50 L Pulse Oximetry 94 96 Oxygen Delivery Room Air Intake/Output Intake/Output: Intake & Output 03/28/24 03/29/24 03/30/24 03/31/24 23:59 23:59 23:59 23:59 Intake Total 1000 7165.0 2707.5 Output Total 1675 Balance 1000 7165.0 1032.5 Meds/Results Medications: Active Medications Generic Name Dose Route Start Last Admin Trade Name Freq PRN Reason Stop Dose Admin Acyclovir Sodium 1,000 mg/ 270 mls @ 250 mls/hr 03/30/24 08:00 03/31/24 14:20 Dextrose IVPB 250 mls/hr Q8HR OBDULIA Administration Levetiracetam 750 mg/ Dextrose 107.5 mls @ 430 mls/hr 03/30/24 09:00 03/31/24 09:21 IVPB Infused Q12HR OBDULIA Infusion Ondansetron HCl 4 mg 03/29/24 17:11 Ondansetron Inj 4 Mg/2 Ml Vial IV PUSH Q4H PRN Nausea Pantoprazole Sodium 40 mg 03/31/24 21:00 Pantoprazole Sodium Iv 40 Mg Vial IV PUSH Q12HR OBDULIA Sodium Chloride 10 ml 03/30/24 14:00 03/31/24 14:20 Saline Lock Flush IV PUSH 10 ml Q8HR OBDULIA Administration Sodium Chloride 10 ml 03/30/24 06:33 Saline Lock Flush IV PUSH PRN PRN Flush Sodium Chloride 20 ml 03/30/24 06:33 Saline Lock Flush IV PUSH PRN PRN after blood draws Labs Labs: Laboratory Results - last 24 hr 03/31/24 03/31/24 05:40 14:34 WBC 9.9 RBC 2.49 L Hgb 8.4 L 8.7 L Hct 25.2 L 26.1 L MCV 101.2 H MCH 33.7 MCHC 33.3 RDW 16.2 H Plt Count 179 MPV 9.5 Sodium 136 L Potassium 3.5 Chloride 113 H Carbon Dioxide 22 Anion Gap 1 L BUN 16 Creatinine 1.20 H Estim Creat Clear Calc 39 Estimated GFR 43 L Glucose 92 Calcium 7.1 L Total Bilirubin 0.7 AST 23 ALT 10 Alkaline Phosphatase 56 Total Protein 5.0 L Albumin 2.2 L Quality VTE Prophylaxis VTE prophylaxis: mechanical ordered -Patient's previous records reviewed on admission -ER notes reviewed in detail on admission -discussed all findings and current treatment plan with patient/Family/POA -Consultations reviewed for recommendations -Patient's disposition for safe discharge discussed with casework specialist Dictation performed by [employer] direct speech recognition software, therefore business planning manager variants and typographical errors may occur. Hospitalist MIPS Advance Care Plan I have confirmed that the patient's Advanced Care Plan is present, code status is documented, or surrogate decision maker is listed in patient medical record.: Yes Medication Reconciliation I have utilized all available resources to obtain, update and review the patients current medications (includes all prescriptions, OTC, herbals, carlos abis, and nutritional supplements).: Yes The patient is not eligible for med reconciliation; the patient is in a emergent medical situation where delaying treatment would jeopardize the patients health.: No
[2024-03-31] MEDS: ACETAMINOPHEN 325 MG TABLET 650 MG PO (17:32)
[2024-03-31 20:05] VITALS: BP 102/46; PULSE 83; RESP 24; TEMP 37.2; O2SAT 93
[2024-03-31] MEDS: PANTOPRAZOLE SODIUM IV 40 MG VIAL IV PUSH (20:05)
[2024-04-01 05:05] VITALS: BP 129/43; PULSE 79; RESP 20; TEMP 36.6; O2SAT 96
[2024-04-01] MEDS: ACYCLOVIR SODIUM IVPB 1,000 MG in DEXTROSE 5% IN WATER 250 ML 250 MG IVPB (05:06)
[2024-04-01] MEDS: SALINE LOCK FLUSH 10 ML IV PUSH (05:07)
[2024-04-01 05:09] LABS: Hematocrit 25.4 % (37.0-47.0); Hemoglobin 8.7 g/dL (12.0-15.0); Mean Corpuscular HGB Conc 34.3 g/dl (32-36); Mean Corpuscular Hemoglobin 34.1 pg (26-34); Mean Corpuscular Volume 99.6 fl (80-100); Mean Platelet Volume 9.7 fl (7.4-10.4); Platelet Count Result 193 k/mm3 (150-375); Red Blood Count 2.55 M/mm3 (4.2-5.4); Red Cell Distribution Width 16.2 % (11.5-14.5); White Blood Count 8.4 K/mm3 (4.5-10.0)
[2024-04-01 05:27] LABS: Alanine Aminotransferase 12 U/L (6-35); Albumin Level 2.4 g/dL (3.5-5.1); Alkaline Phosphatase 65 U/L (38-126); Anion Gap 3 mmol/L (4-12); Aspartate Amino Transferase 27 U/L (14-36); Bilirubin,Total 0.6 mg/dL (0.2-1.3); Blood Urea Nitrogen 11 mg/dL (7-17); Calcium 7.6 mg/dL (8.4-10.2); Carbon Dioxide 24 mmol/L (22-30); Chloride 111 mmol/L (98-107); Estimated CRCL calculation 43 ml/min; Estimated Glomerular Filt Rate 48; Glucose 83 mg/dL (65-110); Potassium 3.3 mmol/L (3.4-5.0); Sodium 138 mmol/L (137-145)
[2024-04-01] MEDS: POTASSIUM CHLORIDE 20 MEQ ER TABLET 40 MEQ PO (08:24)
[2024-04-01] MEDS: PANTOPRAZOLE SODIUM IV 40 MG VIAL IV PUSH (08:24)
[2024-04-01] MEDS: levETIRAcetam 250 MG TABLET 750 MG PO (08:24)
--- NOTE | 2024-04-01 11:15 | P.DS_ITS ---
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): Code(s): B00.4 - Herpesviral encephalitis Status: Acute (3) Dementia: Code(s): F03.90 - Unspecified dementia, unspecified severity, without behavioral disturbance, psychotic disturbance, mood disturbance, and anxiety Status: Acute (4) Hypertension: Code(s): I10 - Essential (primary) hypertension Status: Acute (5) Seizure: Code(s): R56.9 - Unspecified convulsions Status: Acute (6) Rheumatoid arthritis: Code(s): M06.9 - Rheumatoid arthritis, unspecified Status: Acute Plan disposition: patient discharged home with PICC and home health DS: Summary Hospital Course Reason for hospitalization: acute upper GI bleed Hospital Course: patient was a 78-year-old female who presented to the emergency department initially for nausea and vomiting with coffee-ground emesis patient had reported she has history of gastric ulcers, RA and recent hospitalization for HSV encephalitis. patient's initial hemoglobin was 11.6 upon admission she was started on a pantoprazole drip and IV fluids with clear liquids. both emergency department and myself had discussions with patient regarding EGD for direct visualization which at that time patient family requested continue with conservative management unless significant drop in hemoglobin or continued nausea and vomiting. patient had resolution of nausea and vomiting the following day was able to advance diet as tolerated in no further episodes hemoglobin initially had dropped to 8.4 then stabilized at 8.7 with no further drop. patient with overall improvement in no further emesis with stabilization of hemoglobin requested no EGD during admission however was aware if symptoms return she would need EGD for direct visualization. Patient was discharged to home with home health and started on pantoprazole p.o. b.i.d.. she was provided with an order for follow-up CBC to monitor her blood counts and I encouraged referral and follow-up with GI. she was informed to limit her NSAID use currently holding her Celebrex and methotrexate. Status at Discharge Functional status at discharge: uses cane/walker Overall status at discharge: patient is back to baseline Time Spent with Patient Time attestation: Total time spent providing and/or coordinating discharge services: Time spent: Greater than 30 minutes Exam Narrative: * GENERAL: Pleasant Alert and oriented x 3 female. No acute distress. * EYES: EOMI. No scleral icterus. PERRLA. * HEENT: Moist mucous membranes. * LUNGS: Clear to auscultation bilaterally. No accessory muscle use. * CARDIOVASCULAR: Regular rate and rhythm. No murmur. No JVD. S1-S2 * ABDOMEN: Soft, non tenderness and non-distended. No palpable masses. * EXTREMITIES: No edema. Non-tender * SKIN: No rashes or lesions. Skin warm, dry. * NEUROLOGIC: No focal neurological deficits. CN II-XII grossly intact * PSYCHIATRIC: Appropriate mood and affect. Good judgement and insight. N DS: Data Data Completed and Pending Labs on day of discharge: Labs from last 24 hours 04/01/24 03/31/24 05:02 14:34 WBC 8.4 RBC 2.55 L Hgb 8.7 L 8.7 L Hct 25.4 L 26.1 L MCV 99.6 MCH 34.1 H MCHC 34.3 RDW 16.2 H Plt Count 193 MPV 9.7 Sodium 138 Potassium 3.3 L Chloride 111 H Carbon Dioxide 24 Anion Gap 3 L BUN 11 D Creatinine 1.10 H Estim Creat Clear Calc 43 Estimated GFR 48 L Glucose 83 Calcium 7.6 L Total Bilirubin 0.6 AST 27 ALT 12 Alkaline Phosphatase 65 Total Protein 5.0 L Albumin 2.4 L Discharge Plan Discharge Attending physician on discharge: Primo Thomas Discharging Clinician: Edie Stuart Anticipated Discharge Date/Time: 04/01/24 11:04 Patient Disposition: Home Health Service Activity: may shower and as tolerated Diet: heart healthy Discharge Instructions: Per Care Coordination Patient was current with [facility] for IV Acyclovir every 8 hrs. to continue through Apr 08. [phone] Please resume services at discharge. RN please fax completed discharge instructions to [phone] Infusion through [facility] [phone] You are being discharged to home with home health following evaluation and treatment for possible upper GI bleed/gastric ulcer. During your stay it was agreed on conservative treatment with medications. Your blood counts did stabilize while you were here and there was no further evidence bleeding. If symptoms return would consider a consult to GI with possible EGD for direct visualization. At this time I will finish driving pantoprazole please take as directed and limit NSAID use. if symptoms return you experience nausea vomiting with blood in your sputum hypotension (Low blood Pressure), dizziness I recommend seeking medical treatment. I have also provided an order for a CBC for follow-up blood counts to ensure stabilization this can be drawn next week and sent to your primary care physician I recommend a follow-up with your primary care within the next 2 weeks. You are still under the treatment of IV acyclovir please continue with medication as prescribed and follow-up with neurology as scheduled your lower extremities did experience some swelling during your admission likely due to aggressive IV fluid resuscitation I have provided a prescription for Lasix 20 mg daily just for 5 days this will increase your urine frequency monitor daily weights, may stop when swelling improved. I also recommend elevating lower extremities when rest as well increasing activity. How can you care for yourself at home? ? Keep track of any new symptoms or changes in your symptoms. ? Rest until you feel better. ? Be safe with medicines. Take your medicines exactly as prescribed. Call your doctor if you think you are having a problem with your medicine. ? Do not drive after taking a prescription pain medicine. ? Ensure to follow-up with primary care physician as indicated and provide updated medication list provided to you at discharge. When should you call for help? Call 911 anytime you think you may need emergency care. For example, call if: ? You passed out (lost consciousness). Call your doctor now or seek immediate medical care if: ? You have new symptoms like fever, difficulty breathing, Chest pain, vomiting, or rash. ? You have new or different pain. ? You are confused and are having trouble thinking clearly. ? Your symptoms are getting worse. Watch closely for changes in your health, and be sure to contact your doctor if: ? You do not get better as expected. Patient Instructions: Antibiotic Form, Peptic Ulcer (DC), Gastritis (DC), Diet for Stomach Ulcers and Gastritis (GEN) Patient Language: Czech Stand Alone Forms: General Discharge Information Follow-up/Referrals: Alvaro,Telma Hamilton MD [Primary Care Provider] - 2 Weeks (CBC completed before hand) Discharge Medications: New pantoprazole 40 mg tablet,delayed release (DR/EC) 40 mg PO BID Qty: 60 0RF furosemide 20 mg tablet 20 mg PO DAILY Qty: 5 0RF Continued atenolol 25 mg tablet 25 mg PO DAILY allopurinol 100 mg tablet 100 mg PO DAILY [id number] Tablet 1 tablet PO DAILY triamterene-hydrochlorothiazid 75-50 mg tablet 1 tablet PO DAILY Hold Instructions: Resume on 04/04/24. hold until seeing your PCP. This may not need to be resumed. lisinopril 40 mg tablet 40 mg PO DAILY Jardiance 10 mg tablet 10 mg PO DAILY coQ10 (ubiquinol) 200 mg Capsule 200 mg PO DAILY Alive Women's Multivitamin 4.5 mg iron- 120 mcg-60 mcg Tablet 1 tablet PO DAILY esomeprazole magnesium 40 mg capsule,delayed release(DR/EC) 40 mg PO DAILY aspirin 81 mg Tablet,Delayed Release (Dr/Ec) 81 mg PO QAM Qty: 90 0RF atorvastatin 20 mg Tablet 20 mg PO DAILY Qty: 90 0RF levetiracetam 750 mg Tablet 750 mg PO Q12HR Qty: 180 0RF acyclovir in 0.9 % sodium chlr See Rx Instructions .ROUTE .COMPLEX Rx Instructions: Acyclovir IV 3gm/560mL 1gram Q8HR 183mL/hour bag change every 24HR Administration IV through midline with CURLIN pump change due [id number] Held celecoxib [Celebrex] 200 mg Capsule 200 mg PO DAILY Hold Instructions: Resume on 04/15/24. Hold until seen by primary and follow- up CBC completed Discontinued methotrexate sodium 2.5 mg tablet 2.5 mg PO DAILY Hold Instructions: Resume on 05/10/24. Please hold until you have been seen with neurology at follow up Patient Comments: ON HOLD Other Ambulatory Orders: Complete Blood Count no Diff (Routine) Timeframe: 1 Week Location: Determined by Patient Ordered By: Edie Stuart Date of admission: 03/30/24 17:23 Primary Care Provider: AlvaroTelma Admitting Provider: Primo Thomas Attending physician on admission: Edie Stuart Condition: Stable Quality VTE Prophylaxis VTE prophylaxis: mechanical ordered -Patient's previous records reviewed on admission -ER notes reviewed in detail on admission -discussed all findings and current treatment plan with patient/Family/POA -Consultations reviewed for recommendations -Patient's disposition for safe discharge discussed with director case Dictation performed by [employer] direct speech recognition software, there fore bilingual school psychologist variants and typographical errors may occur. Hospitalist MIPS Heart Failure (Exclusion) Patient has history of Heart Transplant or Left Ventricular Assistive Device?: No IF YES, STOP HERE Heart Failure (Qualifier) Patient has current or prior documentation of LVEF less than or equal to 40%, or mod/servere depressed LVSF?: No IF NO, STOP HERE
== END 2024-04-01 12:10 | disposition home health service (06) | DRG 377 ==
LOC: ANHED 20:04 → ANH3MEDSUR 20:12
PROVIDERS: Admitting Provider Internal Medicine; Emergency Provider Emergency Medicine; PCP Family Medicine; Visit Provider Nurse Practitioner Family
DX: K25.4 Chronic or unspecified gastric ulcer with hemorrhage (principal); B00.4 Herpesviral encephalitis; Z68.41 Body mass index [BMI] 40.0-44.9, adult; G40.89 Other seizures; F03.90 Unspecified dementia, unspecified severity, without behavioral disturbance, psychotic disturbance, mood disturbance, and anxiety; I10 Essential (primary) hypertension; M06.9 Rheumatoid arthritis, unspecified; M19.90 Unspecified osteoarthritis, unspecified site; E66.9 Obesity, unspecified; M10.9 Gout, unspecified; Z87.891 Personal history of nicotine dependence; Z66 Do not resuscitate
CPT/HCPCS: 36415; 80053; 81003; 83605; 83690; 85014; 85018; 85025; 85027; 96365; 96366; 96368; 96375; 96376; 99285; A9270; G0378; J0133; J1953; J2405; J2470; J3480; J7030; J7040; J7060